=== PATIENT | male | born 1965 | race Caucasian/White ===

== ENCOUNTER → 2016-09-21 | Outpatient (CLI) | payer BC ==
[~2016-09-21] MED LIST: CMD75 PO; LEVO200T6 PO; PRLSR20 PO
[2016-09-21 15:41] LABS: BASO % 1.3 %; BASO ABS # 0.11 K/uL (0-0.2); COMPLETE YES; EOS % 5.4 %; HEMATOCRIT 42.7 % (42-52); IG% 0.2 %; LYMPH % 32.6 %; LYMPH ABS # 2.72 K/uL (1.2-3.4); MEAN CELL VOLUME 90.3 fL (80-100); MEAN CORPUSCULAR HEMOGLOBIN 31.3 pg (25-34); MEAN CORPUSCULAR HGB CONC 34.7 g/dl (32-36); MEAN PLATELET VOLUME 10.2 fL (7.4-10.4); MONO % 8.5 %; PLATELET COUNT 241 K/uL (130-400); RED BLOOD COUNT 4.73 M/uL (4.7-6.1); WHITE BLOOD COUNT 8.34 K/uL (4.8-10.8)
[2016-09-21 15:51] LABS: INR 1.5 (0.9-1.1); PROTHROMBIN TIME (PATIENT) 16.3 SECONDS (9.0-12.0)
[2016-09-21 15:52] LABS: ALT/SGPT 50 U/L (12-78); AST/SGOT 23 U/L (15-37); BLOOD UREA NITROGEN 11 mg/dl (7-18); BUN/CREATININE RATIO 9.3 (10-20); CALCIUM 8.8 mg/dl (8.5-10.1); CARBON DIOXIDE 29 mmol/L (21-32); CHLORIDE 106 mmol/L (98-107); GLUCOSE 97 mg/dl (70-99); POTASSIUM 4.2 mmol/L (3.5-5.1); SODIUM 141 mmol/L (136-145)
[2016-09-21 16:03] LABS: ALB/GLOB RATIO 1.1 (0.9-2); ALKALINE PHOSPHATASE 86 U/L (45-117)
== END | disposition home or self-care (01) ==
LOC: C.LAB1850 14:17
PROVIDERS: ATTEND Internal Medicine Pulmonary Disease
DX: Z00.00 Encounter for general adult medical examination without abnormal findings (principal); D68.51 Activated protein C resistance; E03.9 Hypothyroidism, unspecified; E78.5 Hyperlipidemia, unspecified; K21.9 Gastro-esophageal reflux disease without esophagitis; M51.36 Other intervertebral disc degeneration, lumbar region; Z23 Encounter for immunization

== ENCOUNTER → 2017-04-05 | Outpatient (CLI) | payer BC ==
[2017-04-05 09:36] LABS: INR 1.4 (0.9-1.1); PROTHROMBIN TIME (PATIENT) 14.9 SECONDS (9.0-12.0)
== END | disposition home or self-care (01) ==
LOC: C.LAB1850 07:06
PROVIDERS: ATTEND Internal Medicine Pulmonary Disease
DX: D68.51 Activated protein C resistance (principal); E03.9 Hypothyroidism, unspecified; M54.30 Sciatica, unspecified side; E78.5 Hyperlipidemia, unspecified; M51.36 Other intervertebral disc degeneration, lumbar region; K21.9 Gastro-esophageal reflux disease without esophagitis

== ENCOUNTER → 2017-09-09 | Outpatient (CLI) | payer BC ==
[2017-09-09 09:33] LABS: BASO % 1.5 %; BASO ABS # 0.12 K/uL (0-0.2); EOS ABS # 0.41 K/uL (0-0.5); HEMATOCRIT 44.4 % (42-52); HEMOGLOBIN 15.2 g/dL (14.0-18.0); IG# 0.02 K/uL (0.00-0.02); LYMPH % 27.7 %; LYMPH ABS # 2.28 K/uL (1.2-3.4); MEAN CELL VOLUME 91.2 fL (80-100); MEAN CORPUSCULAR HEMOGLOBIN 31.2 pg (25-34); MEAN CORPUSCULAR HGB CONC 34.2 g/dl (32-36); MEAN PLATELET VOLUME 10.3 fL (7.4-10.4); MONO % 7.3 %; NEUT % 58.3 %; PLATELET COUNT 259 K/uL (130-400); RED CELL DISTRIBUTION WIDTH CV 14.1 % (11.5-14.5); RED CELL DISTRIBUTION WIDTH SD 46.7 fL (36.4-46.3); WHITE BLOOD COUNT 8.23 K/uL (4.8-10.8)
[2017-09-09 09:41] LABS: INR 1.7 (0.9-1.1)
[2017-09-09 09:46] LABS: ALBUMIN 3.6 gm/dl (3.4-5.0); ALT/SGPT 39 U/L (12-78); AST/SGOT 22 U/L (15-37); BLOOD UREA NITROGEN 11 mg/dl (7-18); CALCIUM 8.7 mg/dl (8.5-10.1); CARBON DIOXIDE 26 mmol/L (21-32); CHOLESTEROL 196 mg/dl (0-200); CREATININE 1.13 mg/dl (0.60-1.40); GLUCOSE 164 mg/dl (70-99); POTASSIUM 3.8 mmol/L (3.5-5.1); SODIUM 137 mmol/L (136-145)
[2017-09-09 09:58] LABS: ALKALINE PHOSPHATASE 75 U/L (45-117); LDL CHOLESTEROL CALCULATED 128 mg/dl; TOTAL PROTEIN 7.2 gm/dl (6.4-8.2)
== END | disposition home or self-care (01) ==
LOC: C.LAB1850 07:01
PROVIDERS: ATTEND Internal Medicine Pulmonary Disease
DX: D68.51 Activated protein C resistance (principal); E03.9 Hypothyroidism, unspecified; E78.5 Hyperlipidemia, unspecified; M51.36 Other intervertebral disc degeneration, lumbar region; K21.9 Gastro-esophageal reflux disease without esophagitis; I10 Essential (primary) hypertension

== ENCOUNTER 2018-11-06 22:20 | Inpatient (IN) ==
[2018-11-06] MEDS ORDERED: ONDANSETRON INJ 2 MG/ML 2 ML VIAL IV STA (23:27)
[2018-11-06] MEDS ORDERED: HYDROmorphone INJ 1 MG/ML SYRINGE IV STA (23:27)
[2018-11-06] MEDS ORDERED: ONDANSETRON INJ 2 MG/ML 2 ML VIAL ONE (23:28)
[2018-11-06] MEDS ORDERED: HYDROmorphone INJ 1 MG/ML SYRINGE ONE (23:28)
[2018-11-06] MEDS ORDERED: SODIUM CHLORIDE 0.9% 1000ML 1,000 ML IV SCH (23:30)
[2018-11-06 23:39] LABS: Basophils % (auto) 0.5 %; Eosinophils # (auto) 0.22 K/uL (0-0.5); Eosinophils % (auto) 1.1 %; Hematocrit (blood only) 47.7 % (42-52); Hemoglobin 17.7 g/dL (14.0-18.0); Immature Granulocytes # (auto) 0.07 K/uL (0.00-0.02); Immature Granulocytes % (auto) 0.4 %; Lymphocytes # (auto) 2.44 K/uL (1.2-3.4); Lymphocytes % (auto) 12.5 %; Mean Corpuscular Hgb Conc 37.1 g/dL (32-36); Mean Corpuscular Volume 87.5 fL (80-100); Mean Platelet Volume 10.3 fL (7.4-10.4); Monocytes # (auto) 1.67 K/uL (0.11-0.59); Monocytes % (auto) 8.6 %; Neutrophils # (auto) 14.98 K/uL (1.4-6.5); Neutrophils % (auto) 76.9 %; Platelet Count 315 K/uL (130-400); RDW Coefficient of Variation 13.9 % (11.5-14.5); RDW Standard Deviation 44.5 fL (36.4-46.3); Red Blood Count 5.45 M/uL (4.7-6.1); White Blood Count 19.48 K/uL (4.8-10.8)
[2018-11-06 23:49] LABS: INR 2.3 (0.9-1.1); Partial Thromboplastin Ratio 1.3; Partial Thromboplastin Time 35.7 Seconds (21.0-31.0); Prothrombin Time 22.2 Seconds (9.0-12.0)
[2018-11-07] MEDS ORDERED: MoRPHine SULFATE 4 MG/ML 1 ML CARP\\VIAL IV STA (00:37)
[2018-11-07 00:49] LABS: Appearance Urine Clear (Clear); Bilirubin Urine Negative (Negative); Blood Urine Negative (Negative); Color Urine Yellow; Glucose Urine UA Negative (Negative); Ketones Urine Negative (Negative); Leukocyte Esterase Urine Negative (Negative); Nitrite Urine Negative (Negative); Protein Urine Negative (Negative); Urobilinogen Urine Negative (Negative); pH Urine 6.5 (4.5-7.5)
[2018-11-07 00:56] LABS: Basophils # (auto) 0.05 K/uL (0-0.2); Basophils % (auto) 0.3 %; Eosinophils # (auto) 0.08 K/uL (0-0.5); Eosinophils % (auto) 0.5 %; Hematocrit (blood only) 44.6 % (42-52); Hemoglobin 15.7 g/dL (14.0-18.0); Immature Granulocytes # (auto) 0.05 K/uL (0.00-0.02); Immature Granulocytes % (auto) 0.3 %; Lymphocytes % (auto) 9.5 %; Mean Corpuscular Hgb Conc 35.2 g/dL (32-36); Mean Platelet Volume 10.1 fL (7.4-10.4); Monocytes # (auto) 1.05 K/uL (0.11-0.59); Monocytes % (auto) 6.7 %; Neutrophils # (auto) 13.01 K/uL (1.4-6.5); Neutrophils % (auto) 82.7 %; Platelet Count 235 K/uL (130-400); RDW Coefficient of Variation 13.8 % (11.5-14.5); RDW Standard Deviation 44.8 fL (36.4-46.3); Red Blood Count 5.01 M/uL (4.7-6.1); White Blood Count 15.74 K/uL (4.8-10.8)
[2018-11-07 01:12] LABS: Alanine Aminotransferase 33 U/L (12-78); Albumin Level 3.4 gm/dl (3.4-5.0); Amylase 84 U/L (25-115); Aspartate Aminotransferase 15 U/L (15-37); BUN Creatinine Ratio 9.6 (10-20); Blood Urea Nitrogen 11 mg/dl (7-18); Calcium 8.5 mg/dl (8.5-10.1); Carbon Dioxide 29 mmol/L (21-32); Chloride 101 mmol/L (98-107); Creatinine Clr Calc Pharmacy 104.4 ml/min; Est GFR (African American) 89.6; Est GFR (Non-African American) 77.3; Glucose 137 mg/dl (70-99); INR 2.5 (0.9-1.1); Partial Thromboplastin Ratio 1.4; Partial Thromboplastin Time 37.5 Seconds (21.0-31.0); Potassium 3.6 mmol/L (3.5-5.1); Prothrombin Time 23.8 Seconds (9.0-12.0); Sodium 136 mmol/L (136-145)
[2018-11-07 01:17] LABS: Albumin Globulin Ratio 0.9 (0.9-2); Alkaline Phosphatase 74 U/L (45-117); Bilirubin,Total 0.5 mg/dl (0.2-1); Globulin 3.8 gm/dl (2.5-4.0); Total Protein 7.2 gm/dl (6.4-8.2); Troponin I < 0.015 ng/ml (0-0.045)
[2018-11-07] MEDS ORDERED: IOVERSOL 100ml IV PRN (01:31)
[2018-11-07] MEDS ORDERED: FAMOTIDINE 20MG IV PUSH 20 MG/5 ML SYR IV STA (01:47)
[2018-11-07] MEDS: HYDROmorphone INJ 0.5 MG/0.5 ML SYR IV PRN ×8 (02:24→12:14)
--- NOTE | 2018-11-07 04:01 | Emergency Department Note ---
History of Present Illness General Chief complaint: Abdominal Pain Stated complaint: SEVERE MID/UPPER ABDOMINAL PAIN Time Seen by Provider: 11/06/18 23:21 History of Present Illness Maximum Pain Intensity: 10 This is a 53-year-old male presenting to the emergency department for evaluation of severe upper abdominal pain for the past 16 hours. The patient states that his pain began abruptly around 4 AM today, causing him severe pain, nausea, and vomiting. His pain is primarily in a band in the upper abdomen does not otherwise radiate. The patient has not had anything to eat or drink today because of the severity of his symptoms. He did try to drink a small amount this afternoon, but had return of his pain. The patient had several hours of decreased pain, however in the past 1 hour his pain has returned and is currently rated a 10/10. The patient has not had fever or chills. He does not have significant chest pain, chest tightness, or shortness of breath. No lower abdominal discomfort. His past medical history is significant for pulmonary emboli in the past, for which he does take Coumadin. He is not taking anything by mouth for his current pain. He denies alcohol use or tobacco use. Home Medications Home Medications Medication Instructions Recorded Confirmed Type indapamide 1.25 mg PO QAM 11/07/18 11/07/18 History levothyroxine 200 mcg PO DAILY 11/07/18 11/07/18 History omeprazole 20 mg PO DAILY 11/07/18 11/07/18 History warfarin 7.5 mg PO DAILY 11/07/18 11/07/18 History Allergies Allergy/AdvReac Type Severity Reaction Status Date / Time No Known Allergies Allergy Unknown Verified 11/07/18 01:11 Past Med/Surg History Medical History Hypothyroidism History of pulmonary embolism Pancreatitis (Acute 07/28/13) Social History Preferred Language: Albanian Feels Safe at Home: Yes Smoking Status: Never smoker Review of Systems A total of 10 systems reviewed and were otherwise negative Physical Exam Vital Signs Vital Signs - 24 hr 11/06/18 22:31 11/06/18 23:18 11/06/18 23:34 Temperature 36.9 C Temperature Source Oral Sepsis Recent Fever Within 48 Hours No Sepsis New/Unexplained Change in Mental Status No Sepsis Action Taken by Nursing No Action Required Pulse Rate 88 Pulse Rate [Right Finger] 88 Pulse Rhythm [Right Finger] Regular Pulse Strength [Right Finger] Normal Respiratory Rate 22 20 Respiratory Effort / Characteristics Non-Labored Spontaneous Respiratory Depth Normal Blood Pressure 162/99 H Blood Pressure [Right Arm] 154/98 H Blood Pressure Mean 120 Blood Pressure Mean [Right Arm] 116 Pulse Oximetry 99 100 93 Oxygen Delivery Method Room Air Room Air 11/07/18 00:39 11/07/18 02:24 11/07/18 03:33 Temperature Temperature Source Sepsis Recent Fever Within 48 Hours Sepsis New/Unexplained Change in Mental Status Sepsis Action Taken by Nursing Pulse Rate Pulse Rate [Right Finger] 67 71 65 Pulse Rhythm [Right Finger] Regular Pulse Strength [Right Finger] Normal Respiratory Rate 20 20 16 Respiratory Effort / Characteristics Non-Labored Spontaneous Non-Labored Spontaneous Non-Labored Spontaneous Respiratory Depth Normal Normal Normal Blood Pressure Blood Pressure [Right Arm] 146/89 H 146/97 H 166/93 H Blood Pressure Mean Blood Pressure Mean [Right Arm] 108 113 117 Pulse Oximetry 96 95 98 Oxygen Delivery Method Room Air Room Air Room Air VITALS: Vitals are noted on the nurse's note and reviewed by myself. Vital signs stable. GENERAL: White male who appears in moderate to severe discomfort upon my arrival to the ER room. He is holding his upper abdomen with both of his hands and rocking back and forth in the ER bed. HEAD: Normocephalic atraumatic. EYES: Pupils equal round and reactive to light and accommodation. Conjunctivae without injection, sclerae without icterus. Extraocular movements intact. NECK: Supple without nuchal rigidity. No lymphadenopathy. No thyromegaly. Cervical spine is nontender. HEART: Regular rate and rhythm without murmurs gallops or rubs. LUNGS: Clear to auscultation bilaterally without wheezes, rales or rhonchi. No retractions or accessory muscle use. ABDOMEN: Positive normal bowel sounds x 4. Soft with exquisite epigastric and right upper quadrant tenderness. There is some mild left upper quadrant ten derness. No lower abdominal tenderness appreciated. No CVA tenderness. MUSCULOSKELETAL: No muscle atrophy, erythema, or edema noted. Full range of motion in all extremities. NEURO: Patient was alert and oriented to person place and time. CN II through XII grossly intact. . SKIN: The skin was without rashes, erythema, edema, or bruising. Capillary refill less than 2 seconds. Course Administered Medications Hydromorphone HCl (Dilaudid) 0.5 mg IV Q15M PRN PRN Reason: Pain Stop: 11/21/18 02:15 Last Admin: 11/07/18 03:31 Dose: 0.5 mg Documented by: [id number] Admin: 11/07/18 02:24 Dose: 0.5 mg Documented by: [id number] Ioversol (Optiray 320 100ml) 100 ml IV ONCE PRN PRN Reason: Interaction Checking Stop: 11/11/18 01:30 Last Admin: 11/07/18 01:31 Dose: 93 ml Documented by: [id number] Discontinued Medications Hydromorphone HCl (Dilaudid) Confirm Administered Dose 1 mg .ROUTE .STK-MED ONE Stop: 11/06/18 23:29 Last Admin: 11/06/18 23:35 Dose: Not Given Documented by: [id number] Hydromorphone HCl (Dilaudid) 1 mg IV NOW STA Stop: 11/06/18 23:28 Last Admin: 11/06/18 23:35 Dose: 1 mg Documented by: [id number] Sodium Chloride (Nss 1000ml) 1,000 mls @ 999 mls/hr IV .Q1H1M ASHLEY Stop: 11/07/18 00:30 Last Infusion: 11/07/18 00:38 Dose: 0 mls/hr Documented by: [id number] Admin: 11/06/18 23:35 Dose: 999 mls/hr Documented by: [id number] Famotidine (Pepcid 20mg Iv Push) 20 mg in 5 mls @ 2.5 mls/min IV NOW STA Stop: 11/07/18 01:48 Last Admin: 11/07/18 01:59 Dose: 2.5 mls/min Documented by: [id number] Morphine Sulfate (Morphine Sulfate) 4 mg IV NOW STA Stop: 11/07/18 00:38 Last Admin: 11/07/18 00:43 Dose: 4 mg Documented by: [id number] Ondansetron HCl (Zofran) Confirm Administered Dose 4 mg .ROUTE .STK-MED ONE Stop: 11/06/18 23:29 Last Admin: 11/06/18 23:35 Dose: Not Given Documented by: [id number] Ondansetron HCl (Zofran) 4 mg IV NOW STA Stop: 11/06/18 23:28 Last Admin: 11/06/18 23:35 Dose: 4 mg Documented by: [id number] Medical Decision Making Differential Diagnosis Differential diagnosis: Etiologies such as biliary colic, cholecystitis, hepatitis, pancreatitis, cardiac disease, pancreatitis, gastritis, peptic ulcer disease, appendicitis, cystitis, diverticulitis, mesenteric ischemia, inflammatory bowel disease, ileus, bowel obstruction, testicular/adnexal torsion, aortic pathology, shingles, as well as others were considered Laboratory Data Result diagrams: 11/07/18 00:42 11/07/18 00:42 Lab Results 11/06/18 11/06/18 11/06/18 Range/Units 22:48 22:48 22:48 WBC 19.48 H (4.8-10.8) K/uL RBC 5.45 (4.7-6.1) M/uL Hgb 17.7 (14.0-18.0) g/dL Hct 47.7 (42-52) % MCV 87.5 (80-100) fL MCH 32.5 (25-34) pg MCHC 37.1 H (32-36) g/dL RDW Std Deviation 44.5 (36.4-46.3) fL RDW Coeff of Adrian 13.9 (11.5-14.5) % Plt Count 315 (130-400) K/uL MPV 10.3 (7.4-10.4) fL Immature Gran % (Auto) 0.4 % Neut % (Auto) 76.9 % Lymph % (Auto) 12.5 % [place] % (Auto) 8.6 % Eos % (Auto) 1.1 % Baso % (Auto) 0.5 % Immature Gran # (Auto) 0.07 H (0.00-0.02) K/uL Neut # (Auto) 14.98 H (1.4-6.5) K/uL Lymph # (Auto) 2.44 (1.2-3.4) K/uL [place] # (Auto) 1.67 H (0.11-0.59) K/uL Eos # (Auto) 0.22 (0-0.5) K/uL Baso # (Auto) 0.10 (0-0.2) K/uL PT 22.2 H (9.0-12.0) Seconds INR 2.3 H (0.9-1.1) APTT 35.7 H (21.0-31.0) Seconds PTT Ratio 1.3 Sodium Cancelled Potassium Cancelled Chloride Cancelled Carbon Dioxide Cancelled Anion Gap Cancelled BUN Cancelled Creatinine Cancelled Est Cr Clr Drug Dosing Cancelled Est GFR ( Amer) Cancelled Est GFR (Non-Af Amer) Cancelled BUN/Creatinine Ratio Cancelled Glucose Cancelled Calcium Cancelled Total Bilirubin Cancelled AST Cancelled ALT Cancelled Alkaline Phosphatase Cancelled Troponin I Cancelled Total Protein Cancelled Albumin Cancelled Globulin Cancelled Albumin/Globulin Ratio Cancelled Amylase Cancelled Lipase Cancelled Urine Color Urine Appearance (Clear) Urine pH (4.5-7.5) Ur Specific [place] (1.000-1.030) Urine Protein (Negative) Urine Glucose (UA) (Negative) Urine Ketones (Negative) Urine Blood (Negative) Urine Nitrite (Negative) Urine Bilirubin (Negative) Urine Urobilinogen (Negative) Ur Leukocyte Esterase (Negative) 11/07/18 11/07/18 11/07/18 Range/Units 00:35 00:42 00:42 WBC 15.74 H (4.8-10.8) K/uL RBC 5.01 (4.7-6.1) M/uL Hgb 15.7 (14.0-18.0) g/dL Hct 44.6 (42-52) % MCV 89.0 (80-100) fL MCH 31.3 (25-34) pg MCHC 35.2 (32-36) g/dL RDW Std Deviation 44.8 (36.4-46.3) fL RDW Coeff of Adrian 13.8 (11.5-14.5) % Plt Count 235 (130-400) K/uL MPV 10.1 (7.4-10.4) fL Immature Gran % (Auto) 0.3 % Neut % (Auto) 82.7 % Lymph % (Auto) 9.5 % [place] % (Auto) 6.7 % Eos % (Auto) 0.5 % Baso % (Auto) 0.3 % Immature Gran # (Auto) 0.05 H (0.00-0.02) K/uL Neut # (Auto) 13.01 H (1.4-6.5) K/uL Lymph # (Auto) 1.50 (1.2-3.4) K/uL [place] # (Auto) 1.05 H (0.11-0.59) K/uL Eos # (Auto) 0.08 (0-0.5) K/uL Baso # (Auto) 0.05 (0-0.2) K/uL PT 23.8 H (9.0-12.0) Seconds INR 2.5 H (0.9-1.1) APTT 37.5 H (21.0-31.0) Seconds PTT Ratio 1.4 Sodium Potassium Chloride Carbon Dioxide Anion Gap BUN Creatinine Est Cr Clr Drug Dosing Est GFR ( Amer) Est GFR (Non-Af Amer) BUN/Creatinine Ratio Glucose Calcium Total Bilirubin AST ALT Alkaline Phosphatase Troponin I Total Protein Albumin Globulin Albumin/Globulin Ratio Amylase Lipase Urine Color Yellow Urine Appearance Clear (Clear) Urine pH 6.5 (4.5-7.5) Ur Specific [place] 1.010 (1.000-1.030) Urine Protein Negative (Negative) Urine Glucose (UA) Negative (Negative) Urine Ketones Negative (Negative) Urine Blood Negative (Negative) Urine Nitrite Negative (Negative) Urine Bilirubin Negative (Negative) Urine Urobilinogen Negative (Negative) Ur Leukocyte Esterase Negative (Negative) 11/07/18 Range/Units 00:42 WBC (4.8-10.8) K/uL RBC (4.7-6.1) M/uL Hgb (14.0-18.0) g/dL Hct (42-52) % MCV (80-100) fL MCH (25-34) pg MCHC (32-36) g/dL RDW Std Deviation (36.4-46.3) fL RDW Coeff of Adrian (11.5-14.5) % Plt Count (130-400) K/uL MPV (7.4-10.4) fL Immature Gran % (Auto) % Neut % (Auto) % Lymph % (Auto) % [place] % (Auto) % Eos % (Auto) % Baso % (Auto) % Immature Gran # (Auto) (0.00-0.02) K/uL Neut # (Auto) (1.4-6.5) K/uL Lymph # (Auto) (1.2-3.4) K/uL [place] # (Auto) (0.11-0.59) K/uL Eos # (Auto) (0-0.5) K/uL Baso # (Auto) (0-0.2) K/uL PT (9.0-12.0) Seconds INR (0.9-1.1) APTT (21.0-31.0) Seconds PTT Ratio Sodium 136 Potassium 3.6 Chloride 101 Carbon Dioxide 29 Anion Gap 6.0 BUN 11 Creatinine 1.10 Est Cr Clr Drug Dosing 104.4 Est GFR ( Amer) 89.6 Est GFR (Non-Af Amer) 77.3 BUN/Creatinine Ratio 9.6 L Glucose 137 H Calcium 8.5 Total Bilirubin 0.5 AST 15 ALT 33 Alkaline Phosphatase 74 Troponin I < 0.015 Total Protein 7.2 Albumin 3.4 Globulin 3.8 Albumin/Globulin Ratio 0.9 Amylase 84 Lipase 513 H Urine Color Urine Appearance (Clear) Urine pH (4.5-7.5) Ur Specific [place] (1.000-1.030) Urine Protein (Negative) Urine Glucose (UA) (Negative) Urine Ketones (Negative) Urine Blood (Negative) Urine Nitrite (Negative) Urine Bilirubin (Negative) Urine Urobilinogen (Negative) Ur Leukocyte Esterase (Negative) Imaging Data Radiologist's Impression: Preliminary Findings Only See Final Report For Complete Findings US RUQ: No gallstones or biliary ductal dilatation. Gallbladder sludge. Positive sonographic Liu sign is reported The pancreas is obscured. Echogenic liver suggesting fatty infiltration or hepatocellular disease. Hepatomegaly, 19 centimeters Preliminary Findings Only See Final Report For Complete Findings CT ABDOMEN & PELVIS With Contrast: Stranding about the pancreatic head-uncinate area and duodenum. Could be pancreatitis. Additional considerations include duodenitis or peptic ulcer disease. No radiodense gallstones. Mild fatty liver. Colonic diverticula without diverticulitis. Unremarkable appendix. Degenerative changes in the spine and spinal stenosis. MDM Narrative Physical exam and history were performed. Nursing notes, EMR, and Medication List were personally reviewed. Patient appears to have significant discomfort in the upper abdomen throughout the course of today that is worse the past 1 hour. IV access was established and labs were obtained. The patient was given 1 mg IV Dilaudid as well as 4 mg IV Zofran for comfort. He was placed n.p.o. and hydrated with normal saline. Ultrasound was ordered of the right upper quadrant. The patient's blood work is as above and was reviewed. He did have 2 sets of blood work as the initial blood work did hemolyzed, and labs were reordered. We were able to get an initial white blood cell count of 19.48. He does not have a significant anemia or significant electrolyte imbalance. His INR is 2.5. Lipase is minimally elevated at 513. Amylase is normal. The patient's ultrasound was reviewed and does not appear to show an acute biliary etiology of his symptoms. On reevaluation the patient continues with significant discomfort, although this has improved. He was given a small dose of IV morphine and taken to CT scan. CT scan seems to suggest a pancreatitis, which would certainly correlate with his discomfort. Overall the patient does not appear well for discharge home. The case was discussed with the on-call hospitalist, Dr. Bro, who agreed to evaluate the patient here in the department. Please see Dr. Bro's dictation for further patient course, plan, disposition. The chart was completed utilizing [employer] Speech Voice Recognition Software. Grammatical errors, random word insertions, pronoun errors, and incomplete sentences are an occasional consequence of this system due to software limitations, ambient noise, and hardware issues. Any formal questions or concerns about the content, text, or information contained within the body of this dictation should be directly addressed to the provider for clarification. . Impression & Plan Acute pancreatitis Discharge Plan Visit Data Chief Complaint: Abdominal Pain Stated Complaint: SEVERE MID/UPPER ABDOMINAL PAIN ED Provider: Deidra Lyons ED Midlevel Provider: Eduar Montero Discharge Problem: Acute pancreatitis Forms Stand Alone Forms: Call Back Authorization, [facility] Prescriptions Prescriptions: No Action warfarin 7.5 mg Tablet 7.5 mg PO DAILY RF: 0 levothyroxine 200 mcg Tablet 200 mcg PO DAILY RF: 0 omeprazole 20 mg Tablet,Delayed Release (Dr/Ec) 20 mg PO DAILY RF: 0 indapamide 1.25 mg Tablet 1.25 mg PO QAM RF: 0 Referrals Referrals: Brad Barr MD [Primary Care Provider] -
--- NOTE | 2018-11-07 04:17 | History & Physical Report ---
Date of Service November 07, 2018 Assessment & Plan (1) Right upper quadrant abdominal pain: 53-year-old male was admitted on 07 Nov 2018 for progressively worsening right upper quadrant pain. Pancreatitis, right upper quadrant pain: Symptoms progressively worsening over past 24 hours prior to admit. Prior history of pancreatitis back in July 2013, though the patient says it was ultimately diagnosed as gastritis. Current symptoms feel more severe. Denies EtOH use. Quite tender in the RUQ. - On arrival, afebrile, no tachycardia, mild hypertension, normal room SpO2. WBC 19, electrolytes and LFTs okay. Troponin negative. Lipase 513. UA negative. Gallbladder ultrasound (overnight read) notes no gallstones or biliary duct dilatation, positive gallbladder sludge, positive sonographic Liu's, hepatomegaly, and echogenic liver suggesting fatty infiltration/hepatocellular disease. CT a/p with contrast (overnight read) noted stranding in the pancreatic head and duodenum suggestive of either pancreatitis, duodenitis or PUD, or mild fatty liver. - In the ED was treated with NS IVF, Zofran, Pepcid, morphine, and Dilaudid. - Check alcohol and lipid panel. Begin aggressive fluid replacement with LR at 250 mL/hr. Dilaudid prn for pain, Phenergan prn for nausea. Recheck lipase and electrolytes in late AM. Consult GI. Prolonged QTc: EKG was NSR, rate 87, with QTc of 478. Will avoid Zofran for now. Ongoing medical issues: - Hypertension, hyperlipidemia: Will hold his home indapamide while on IVF replacement. - Factor V Leiden deficiency, history of left lower extremity DVT, PE: On home Coumadin. Admit INR 2.5. - Hypothyroidism: Continue home Synthroid. - GERD: Continue home omeprazole. - Type 2 diabetes: Sep 2018 HbA1c was 6.9. Patient is pursuing lifestyle changes before starting medication. - Degenerative spine changes, spinal stenosis: Also noted on overnight CT a/p read. He does have history of lumbar disc degeneration and previous herniated disc repair. Code status: Full code. Diet: NPO except meds. DVT prophy: Coumadin as above. PT/OT: Deferred. Disbo: Admit to [facility]. (2) Acute pancreatitis: (3) Prolonged QT interval: (4) Hypertension: (5) Hyperlipidemia: (6) Factor V Leiden mutation: (7) Hypothyroidism: (8) History of pulmonary embolism: (9) History of DVT (deep vein thrombosis): (10) GERD (gastroesophageal reflux disease): (11) Diabetes mellitus: (12) Lumbar canal stenosis: (13) Lumbar arthropathy: History of Present Illness Primary Care Provider: Brad Barr MD 53-year-old male presents the emergency department with progressively worsening right upper quadrant pain that radiates to his back. - He says he woke up on 16October around 4 am with a feeling of "gas" discomfort in his abdomen. It never remitted throughout the day but was initially more manageable. Says around 5 PM became a lot worse so he took some Pepto-Bismol with no relief. He says by late this evening the pain became quite severe as a steady, burning pain in his RUQ radiating to his back. Positive nausea, denies any vomiting or diarrhea. Says last bowel movement was about 36 hours ago. Says this is the most severe abdominal pain he has ever had. Minimal p.o. intake yesterday due to feeling of bloating. Says his mouth is currently quite dry. Denies any recent fevers, illness, trauma, or other acute concerns. - He does note a previous episode of similar location and pain character (but not severity) to this many years ago. He says he was told it may be pancreatitis but ultimately it was diagnosed as gastritis. --- Past medical history includes hypertension, hyperlipidemia, hypothyroidism, prior rib fractures, lumbar disc degeneration, GERD, type 2 diabetes, factor V Leiden mutation, DVT and PE, obesity, bilateral varicose veins, pancreatitis. --- Past surgical history includes right shoulder arthroscopy and rotator cuff repair, herniated disc repair, nasal septal repair, tonsillectomy and adeno idectomy --- Social history includes denying tobacco or any alcohol use at all. 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 Allergies Allergy/AdvReac Type Severity Reaction Status Date / Time No Known Allergies Allergy Unknown Verified 11/07/18 01:11 Home Medications Home Medications Medication Instructions Recorded Confirmed Type indapamide 1.25 mg PO QAM 11/07/18 11/07/18 History levothyroxine 200 mcg PO DAILY 11/07/18 11/07/18 History omeprazole 20 mg PO DAILY 11/07/18 11/07/18 History warfarin 7.5 mg PO DAILY 11/07/18 11/07/18 History Past Med/Surg History Medical History Hypothyroidism History of pulmonary embolism Pancreatitis (Acute 07/28/13) Factor V Leiden Surgical History History of repair of right rotator cuff History of umbilical hernia repair Previous back surgery Social History Preferred Language: Wolof Communication Ability: Effective 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 Beliefs That Will Affect Care: None Current Living Situation: Family Other Information That Helps Us Care for You: No Feels Safe at Home: Yes Safety Concerns: Feels Safe At This Time Smoking Status: Light tobacco smoker Tobacco Type: cigars Cigarettes Per Day: once a year Do You Dip or Chew Tobacco: No Second Hand Exposure: No Tobacco Cessation Education Requested by Patient: No Hx Alcohol Use: No Hx Substance Use: No Review of Systems Review of Systems: Constitutional: Denies fevers, chills, focal weakness Eyes: Denies any visual loss or diplopia ENT: Denies any ear/nose/throat pain or difficulty speaking or swallowing Respiratory: Denies any dyspnea, cough, hemoptysis Cardiovascular: Denies any chest pain or feeling of edema Gastrointestinal: Positive abdominal pain and nausea. Denies vomiting or diarrhea. Musculoskeletal: Denies any acute extremity pains, myalgias, or focal weakness Skin: Denies any known acute rashes or lesions Neuro: Denies any headache, acute focal weakness or numbness, or difficulties with speech or swallow. Physical Exam Physical Exam: GENERAL: Awake, alert, overall well-appearing but is in mild to moderate abdominal pain at present. Does not appear in immediate distress. HENT: Normocephalic, atraumatic. Oropharynx quite dry. EYES: Normal conjunctiva. Sclera non-icteric. NECK: Inspection normal. Supple and full ROM. No nuchal rigidity. CARDIAC: +S1S2 RRR, no murmurs. RESPIRATORY: Clear to auscultation. No wheezes or rales. Normal respiratory effort. GI: +BS, soft, non-distended. Very tender to palpation in the right upper qu adrant, non-tender elsewhere in the abdomen. Non-peritoneal. Does not appear distended. EXTREMITIES: No pedal edema or calf tenderness. Moving all extremities naturally and easily. NEURO: No gross neuro deficits. Results & Data Vital Signs (Past 12 Hours) Vital Signs Temp Pulse Pulse Resp BP BP Pulse Ox 11/07/18 03:33 65 16 166/93 H 98 11/07/18 02:24 71 20 146/97 H 95 11/07/18 00:39 67 20 146/89 H 96 11/06/18 23:34 93 11/06/18 23:18 88 20 154/98 H 100 11/06/18 22:31 36.9 C 88 22 162/99 H 99 Laboratory Results 11/07/18 11/07/18 11/07/18 Range/Units 00:42 00:42 00:42 WBC 15.74 H (4.8-10.8) K/uL RBC 5.01 (4.7-6.1) M/uL Hgb 15.7 (14.0-18.0) g/dL Hct 44.6 (42-52) % MCV 89.0 (80-100) fL MCH 31.3 (25-34) pg MCHC 35.2 (32-36) g/dL RDW Std Deviation 44.8 (36.4-46.3) fL RDW Coeff of Adrian 13.8 (11.5-14.5) % Plt Count 235 (130-400) K/uL MPV 10.1 (7.4-10.4) fL Immature Gran % (Auto) 0.3 % Neut % (Auto) 82.7 % Lymph % (Auto) 9.5 % Cass % (Auto) 6.7 % Eos % (Auto) 0.5 % Baso % (Auto) 0.3 % Immature Gran # (Auto) 0.05 H (0.00-0.02) K/uL Neut # (Auto) 13.01 H (1.4-6.5) K/uL Lymph # (Auto) 1.50 (1.2-3.4) K/uL Cass # (Auto) 1.05 H (0.11-0.59) K/uL Eos # (Auto) 0.08 (0-0.5) K/uL Baso # (Auto) 0.05 (0-0.2) K/uL PT 23.8 H (9.0-12.0) Seconds INR 2.5 H (0.9-1.1) APTT 37.5 H (21.0-31.0) Seconds PTT Ratio 1.4 Sodium 136 Potassium 3.6 Chloride 101 Carbon Dioxide 29 Anion Gap 6.0 BUN 11 Creatinine 1.10 Est Cr Clr Drug Dosing 104.4 Est GFR ( Amer) 89.6 Est GFR (Non-Af Amer) 77.3 BUN/Creatinine Ratio 9.6 L Glucose 137 H Calcium 8.5 Total Bilirubin 0.5 AST 15 ALT 33 Alkaline Phosphatase 74 Troponin I < 0.015 Total Protein 7.2 Albumin 3.4 Globulin 3.8 Albumin/Globulin Ratio 0.9 Amylase 84 Lipase 513 H Urine Color Urine Appearance (Clear) Urine pH (4.5-7.5) Ur Specific Madison (1.000-1.030) Urine Protein (Negative) Urine Glucose (UA) (Negative) Urine Ketones (Negative) Urine Blood (Negative) Urine Nitrite (Negative) Urine Bilirubin (Negative) Urine Urobilinogen (Negative) Ur Leukocyte Esterase (Negative) 11/07/18 11/06/18 11/06/18 Range/Units 00:35 22:48 22:48 WBC (4.8-10.8) K/uL RBC (4.7-6.1) M/uL Hgb (14.0-18.0) g/dL Hct (42-52) % MCV (80-100) fL MCH (25-34) pg MCHC (32-36) g/dL RDW Std Deviation (36.4-46.3) fL RDW Coeff of Adrian (11.5-14.5) % Plt Count (130-400) K/uL MPV (7.4-10.4) fL Immature Gran % (Auto) % Neut % (Auto) % Lymph % (Auto) % Cass % (Auto) % Eos % (Auto) % Baso % (Auto) % Immature Gran # (Auto) (0.00-0.02) K/uL Neut # (Auto) (1.4-6.5) K/uL Lymph # (Auto) (1.2-3.4) K/uL Cass # (Auto) (0.11-0.59) K/uL Eos # (Auto) (0-0.5) K/uL Baso # (Auto) (0-0.2) K/uL PT 22.2 H (9.0-12.0) Seconds INR 2.3 H (0.9-1.1) APTT 35.7 H (21.0-31.0) Seconds PTT Ratio 1.3 Sodium Cancelled Potassium Cancelled Chloride Cancelled Carbon Dioxide Cancelled Anion Gap Cancelled BUN Cancelled Creatinine Cancelled Est Cr Clr Drug Dosing Cancelled Est GFR ( Amer) Cancelled Est GFR (Non-Af Amer) Cancelled BUN/Creatinine Ratio Cancelled Glucose Cancelled Calcium Cancelled Total Bilirubin Cancelled AST Cancelled ALT Cancelled Alkaline Phosphatase Cancelled Troponin I Cancelled Total Protein Cancelled Albumin Cancelled Globulin Cancelled Albumin/Globulin Ratio Cancelled Amylase Cancelled Lipase Cancelled Urine Color Yellow Urine Appearance Clear (Clear) Urine pH 6.5 (4.5-7.5) Ur Specific [place] 1.010 (1.000-1.030) Urine Protein Negative (Negative) Urine Glucose (UA) Negative (Negative) Urine Ketones Negative (Negative) Urine Blood Negative (Negative) Urine Nitrite Negative (Negative) Urine Bilirubin Negative (Negative) Urine Urobilinogen Negative (Negative) Ur Leukocyte Esterase Negative (Negative) 11/06/18 Range/Units 22:48 WBC 19.48 H (4.8-10.8) K/uL RBC 5.45 (4.7-6.1) M/uL Hgb 17.7 (14.0-18.0) g/dL Hct 47.7 (42-52) % MCV 87.5 (80-100) fL MCH 32.5 (25-34) pg MCHC 37.1 H (32-36) g/dL RDW Std Deviation 44.5 (36.4-46.3) fL RDW Coeff of Adrian 13.9 (11.5-14.5) % Plt Count 315 (130-400) K/uL MPV 10.3 (7.4-10.4) fL Immature Gran % (Auto) 0.4 % Neut % (Auto) 76.9 % Lymph % (Auto) 12.5 % Cass % (Auto) 8.6 % Eos % (Auto) 1.1 % Baso % (Auto) 0.5 % Immature Gran # (Auto) 0.07 H (0.00-0.02) K/uL Neut # (Auto) 14.98 H (1.4-6.5) K/uL Lymph # (Auto) 2.44 (1.2-3.4) K/uL Cass # (Auto) 1.67 H (0.11-0.59) K/uL Eos # (Auto) 0.22 (0-0.5) K/uL Baso # (Auto) 0.10 (0-0.2) K/uL PT (9.0-12.0) Seconds INR (0.9-1.1) APTT (21.0-31.0) Seconds PTT Ratio Sodium Potassium Chloride Carbon Dioxide Anion Gap BUN Creatinine Est Cr Clr Drug Dosing Est GFR ( Amer) Est GFR (Non-Af Amer) BUN/Creatinine Ratio Glucose Calcium Total Bilirubin AST ALT Alkaline Phosphatase Troponin I Total Protein Albumin Globulin Albumin/Globulin Ratio Amylase Lipase Urine Color Urine Appearance (Clear) Urine pH (4.5-7.5) Ur Specific Madison (1.000-1.030) Urine Protein (Negative) Urine Glucose (UA) (Negative) Urine Ketones (Negative) Urine Blood (Negative) Urine Nitrite (Negative) Urine Bilirubin (Negative) Urine Urobilinogen (Negative) Ur Leukocyte Esterase (Negative) Medications Administered Hydromorphone HCl (Dilaudid) 0.5 mg IV Q15M PRN PRN Reason: Pain Stop: 11/21/18 02:15 Last Admin: 11/07/18 03:31 Dose: 0.5 mg Documented by: [id number] Admin: 11/07/18 02:24 Dose: 0.5 mg Documented by: [id number] Ioversol (Optiray 320 100ml) 100 ml IV ONCE PRN PRN Reason: Interaction Checking Stop: 11/11/18 01:30 Last Admin: 11/07/18 01:31 Dose: 93 ml Documented by: [id number] Discontinued Medications Hydromorphone HCl (Dilaudid) Confirm Administered Dose 1 mg .ROUTE .STK-MED ONE Stop: 11/06/18 23:29 Last Admin: 11/06/18 23:35 Dose: Not Given Documented by: [id number] Hydromorphone HCl (Dilaudid) 1 mg IV NOW STA Stop: 11/06/18 23:28 Last Admin: 11/06/18 23:35 Dose: 1 mg Documented by: [id number] Sodium Chloride (Nss 1000ml) 1,000 mls @ 999 mls/hr IV .Q1H1M ASHLEY Stop: 11/07/18 00:30 Last Infusion: 11/07/18 00:38 Dose: 0 mls/hr Documented by: [id number] Admin: 11/06/18 23:35 Dose: 999 mls/hr Documented by: [id number] Famotidine (Pepcid 20mg Iv Push) 20 mg in 5 mls @ 2.5 mls/min IV NOW STA Stop: 11/07/18 01:48 Last Admin: 11/07/18 01:59 Dose: 2.5 mls/min Documented by: [id number] Morphine Sulfate (Morphine Sulfate) 4 mg IV NOW STA Stop: 11/07/18 00:38 Last Admin: 11/07/18 00:43 Dose: 4 mg Documented by: [id number] Ondansetron HCl (Zofran) Confirm Administered Dose 4 mg .ROUTE .STK-MED ONE Stop: 11/06/18 23:29 Last Admin: 11/06/18 23:35 Dose: Not Given Documented by: [id number] Ondansetron HCl (Zofran) 4 mg IV NOW STA Stop: 11/06/18 23:28 Last Admin: 11/06/18 23:35 Dose: 4 mg Documented by: [id number] Code Status & VTE Plan Code Status Full code VTE Prophylaxis Plan VTE Prophylaxis will be ordered: Yes Supervising Physician Co-Signing Physician Notes Attending addendum: I have physically seen this patient, have supervised the medical residents activities, and agree with the H&P unless as otherwise noted. Assessment and Plan: Recurrent pancreatitis- Patient presents with a similar but more intense picture as in 2014. Question whether he has had a chronic low level pancreatitis, with a more acute exacerbation now. Differential includes duodenitis, biliary reflux, peptic ulcer disease, sphincter of Oddi spasm among others. Check alcohol level and urine drug screen. History of significant alcohol use in the past. NPO status. IV fluids Zofran 4 mg IV every 6 hours as needed. Famotidine 20 mg IV every 12 hours. Acetaminophen 1 g IV every 8 hours as needed mild pain or temperature. Morphine 2 mg IV every 4 hours as needed severe pain. Consult gastroenterology. Remainder of orders and notations as noted. Resident Activity Tracking Resident Involvement: Resident Care Provided Care Provided: Adult Hospital Medicine (1) Acute pancreatitis Acute pancreatitis complication: unspecified Pancreatitis type: other Qualified Code(s): K85.80 - Other acute pancreatitis without necrosis or infection
[2018-11-07] MEDS: LACTATED RINGER'S 1,000 ML IV SCH ×5 (05:25→22:10)
--- NOTE | 2018-11-07 06:14 | Ultrasound Report ---
US gallbladder HISTORY: Pain. Nausea. RUQ pain COMPARISON: None. FINDINGS: Trace sludge within the gallbladder. No shadowing gallstones. Fatty infiltration of liver. Pancreas i s poorly seen due to overlying bowel content. Common bile duct is 5 mm. Right kidney is negative for hydronephrosis. IMPRESSION: 1. Limited study due to patient's large body habitus. 2. Trace amount of gallbladder sludge. 3. Fatty replacement of the liver. The above report was generated using voice recognition software. It may contain grammatical, syntax or spelling errors. Electronically signed by: Paramjit Guerra M.D. 11/07/2018 6:13 AM
--- NOTE | 2018-11-07 06:19 | CT Scan Report ---
CT abd pelvis IV con only CT DOSE: 1459.66 mGy.cm HISTORY: Pain. Nausea. Abd pain. Elevated white count. TECHNIQUE: Multiaxial CT images of the abdomen and pelvis were performed following the use of intrave nous contrast. A dose lowering technique was utilized adhering to the principles of ALARA. COMPARISON STUDY: 07/28/2013 FINDINGS: Lung bases are clear. There is fatty replacement of the liver. Spleen and gallbladder are u nremarkable. Findings of mild to moderate edematous change of the pancreatic head and uncinate process. There is a mild amount of peripancreatic infiltrative change. No evidence for abscess or collection. No signifi cant pseudocyst. Kidneys enhance appropriately. No evidence of hydronephrosis. Nonobstructive bowel pattern. Chronic sigmoid diverticulosis. IMPRESSION: 1. Acute pancreatitis involving the pancreatic uncinate process and to lesser extent pancreatic head. 2. Moderate peripancreatic infiltrative change. 3. No evidence for abscess collection or obstruction. 4. Chronic sigmoid diverticulosis. The above report was generated using voice recognition software. It may contain grammatical, syntax or spelling errors. Electronically signed by: Paramjit Guerra M.D. 11/07/2018 6:18 AM
[2018-11-07] MEDS: LEVOTHYROXINE SODIUM 200 MCG TABLET PO SCH (06:30)
[2018-11-07] MEDS: ACETAMINOPHEN 325 MG TAB PO PRN ×2 (06:30→22:39)
[2018-11-07 08:08] LABS: Chol HDL Ratio 5; Cholesterol 182 mg/dl (0-200); HDL Cholesterol 38 mg/dl; LDL Cholesterol Calculated 126 mg/dl; Triglycerides 92 mg/dl (0-150); VLDL Cholesterol 18 mg/dl
[2018-11-07] MEDS ORDERED: PANTOprazole 40 MG TAB PO SCH (09:00)
--- NOTE | 2018-11-07 09:06 | Hospitalist Progress Note ---
Date of Service November 07, 2018 Assessment & Plan (1) Right upper quadrant abdominal pain: 53-year-old male was admitted on 07 Nov 2018 for progressively worsening right upper quadrant pain. Pancreatitis, right upper quadrant pain: Prior history of pancreatitis back in July 2013, Denies EtOH use. Quite tender in the RUQ. Gallbladder ultrasound (overnight read) notes no gallstones or biliary duct dilatation, positive gallbladder sludge, positive sonographic Liu's, hepatomegaly, and echogenic liver suggesting fatty infiltration/hepatocellular disease. CT a/p with contrast (overnight read) noted stranding in the pancreatic head and duodenum suggestive of either pancreatitis, duodenitis or PUD, or mild fatty liver. Consult GI. Consult general surgery consideration of elective cholecystectomy in the future. Pain control hydration following LFTs remains n.p.o. Prolonged QTc: EKG was NSR, rate 87, with QTc of 478. avoid Zofran - Hypertension, hyperlipidemia: Will hold his home indapamide while on IVF replacement. - Factor V Leiden deficiency, history of left lower extremity DVT, PE: We will hold Coumadin and restart Lovenox therapy and INR daily - Hypothyroidism: Continue with Synthroid. - GERD: Continue home omeprazole. - Type 2 diabetes: Sep 2018 HbA1c was 6.9. Patient is pursuing lifestyle changes before starting medication. Says if needed - Degenerative spine changes, spinal stenosis: Also noted on overnight CT a/p read. He does have history of lumbar disc degeneration and previous herniated disc repair. Code status: Full code. Diet: NPO except meds. DVT prophy: Coumadin as above. (2) Acute pancreatitis: (3) Prolonged QT interval: (4) Hypertension: (5) Hyperlipidemia: (6) Factor V Leiden mutation: (7) Hypothyroidism: (8) History of pulmonary embolism: (9) History of DVT (deep vein thrombosis): (10) GERD (gastroesophageal reflux disease): (11) Diabetes mellitus: (12) Lumbar canal stenosis: (13) Lumbar arthropathy: Subjective Patient is having significant right upper quadrant pain which reports into the degree of laboratory abnormalities that he presents with. There is some gallbladder sludge noted on intake imaging of his upper quadrant however he does note elevation of his bilirubin. His lipase is only in the 4-[address] scan suggests more information of the pancreas itself. Patient continues to be hydrated remains with pain control and antiemetics. Surgery is considering performing a cholecystectomy in the short-term future once his anticoagulation is reversed Review of Systems Review of Systems: ROS: well nourished well developed. No double vision blurry vision No problems with speech or swallowing No palpitations, chest pain or pressure No Wheezing or breathing issues pain in upper right abdomen, is intense No burning urine urine frequency or changes in color No focal joint pain or muscle pain No skin rashes or oral lesions No unusual bruising or bleeding No focused back pain or numbness or loss of strength No changes in memory or confusion Physical Exam Physical Exam: The patient appeared well nourished and normally developed. Vital signs as documented. Head exam is unremarkable. normocephalic, atraumatic eyes are anicteric Neck is without jugular venous distension, thyromegaly, or lymphademopathy Lungs are clear to auscultation and percussion. Cardiac exam reveals Rhythm is regular. First and second heart sounds normal. Abdominal exam reveals Significant abdominal pain in the right upper quadrant radiating to his back he has guarding but no rebound or acute abdomen signs Extremities are nonedematous and both pedal pulses are present Neurologic exam is A&Ox3, no focal deficits, strength is equal bilateral Psychologically seems neither anxious or depressed Skin is warm Dry there is no jaundice Results & Data Vital Signs (Past 12 Hours) Vital Signs Temp Pulse Pulse Resp BP BP Pulse Ox 11/07/18 05:26 36.7 C 70 18 157/91 H 96 11/07/18 04:58 62 18 145/91 H 96 11/07/18 03:33 65 16 166/93 H 98 11/07/18 02:24 71 20 146/97 H 95 11/07/18 00:39 67 20 146/89 H 96 11/06/18 23:34 93 11/06/18 23:18 88 20 154/98 H 100 11/06/18 22:31 36.9 C 88 22 162/99 H 99 (1) Acute pancreatitis Acute pancreatitis complication: unspecified Pancreatitis type: other Qualified Code(s): K85.80 - Other acute pancreatitis without necrosis or infection
[2018-11-07 10:08] LABS: BUN Creatinine Ratio 9.1 (10-20); Calcium 8.6 mg/dl (8.5-10.1); Creatinine Clr Calc Pharmacy 104.7 ml/min; Est GFR (African American) 90.6; Est GFR (Non-African American) 78.2; Magnesium 1.9 mg/dl (1.8-2.4); Potassium 3.8 mmol/L (3.5-5.1)
--- NOTE | 2018-11-07 10:33 | Gastrointestinal Consultation ---
Date of Consultation November 07, 2018 Assessment & Plan (1) Acute pancreatitis: 53 year old male who presents with 48 hours of upper abdominal pain, nausea no vomiting. ABD Us w/ GB sludge, CT imaging concerning for acute pancreatitis but no evidence of abscess, fluid collection etc. No ETOH use, did start indapamide about 6 months ago. He does recall bouts of right sided abd pain, nausea intermittent over the past few months He is awake, alert and oriented. Has remained afebrile, leukocytosis 15. No signs of PEPE, LFTs non-elevated and lipase 500 - LR 250 mL/hr - Watch for appropriate drop in HCT - Antiemetics PRN (history prolonged QT) - Analgesia PRN - Will need a general surgery consultation to discuss cholecystectomy - Appreciate ongoing management per the primary service GI to follow. Thank you for allowing us to participate in the care of this patient. Please call with any acute changes, questions or concerns. Please see addendum below with additional recommendation from my supervising physician. Present on Admission?: Yes Supervising Physician Co-Signing Physician Notes Attending attestation I have seen, examined this patient, and agree with the findings and above by our mid-level provider HERMINIA De La Rosa. -Likely acute gallstone pancreatitis given sludge and gallbladder no other obvious risk factors appears quite dry on presentation and hematocrit revealed hemoconcentration marking a high risk feature for complications. -Fortunately creatinine and respiratory status is normal, no fevers, chills. -Aggressive IVF with LR, pain control, and general surgery consultation to discuss cholecystectomy History of Present Illness Reason for Consultation: pancreatitis Requesting Physician: Zay Attending Physician: Minesh Collazo MD History of Present Illness 53 year old male with history of HTN, dyslipidemia, Factor V Leiden, prior PE/DEVT on coumadin, GERD and others below who presents through the ED for evaluation of abd pain. GI asked to evaluate as work up was concerning for acute pancreatits. Pt was seen and evaluated, chart reivewed. he notes that about 48 hours ago he woke up not feling well. At that time he had mild abd pain, nausea. This persisted and he developed severe upper abd pain. Constant. Sharp stabbing. Worse in RUQ and epigastric region but did radiation to his left abd as well. Nausea but no vomiting. No change in bowels movements. No fever chills, CP, SOB. No ETOH No marijuana No supplements Started indapaminde about 5/6 months ago ABD US: GB sludge, but no stone or biliary dilation CT ABD/Pelvis: Spleen and gallbladder are unremarkable. Findings of mild to moderate edematous change of the pancreatic head and uncinate process. There is a mild amount of peripancreatic infiltrative change. No evidence for abscess or collection. No significant pseudocyst Allergies Allergy/AdvReac Type Severity Reaction Status Date / Time No Known Allergies Allergy Unknown Verified 11/07/18 01:11 Home Medications Home Medications Medication Instructions Recorded Confirmed Type indapamide 1.25 mg PO QAM 11/07/18 11/07/18 History levothyroxine 200 mcg PO DAILY 11/07/18 11/07/18 History omeprazole 20 mg PO DAILY 11/07/18 11/07/18 History warfarin 7.5 mg PO DAILY 11/07/18 11/07/18 History Patient History Medical History Hypothyroidism History of pulmonary embolism Pancreatitis (Acute 07/28/13) Surgical History Previous back surgery Social History Preferred Language: Bengali Communication Ability: 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 Beliefs That Will Affect Care: None Current Living Situation: Family Other Information That Helps Us Care for You: No Feels Safe at Home: Yes Safety Concerns: Feels Safe At This Time Smoking Status: Light tobacco smoker Tobacco Type: cigars Cigarettes Per Day: once a year Do You Dip or Chew Tobacco: No Second Hand Exposure: No Tobacco Cessation Education Requested by Patient: No Hx Alcohol Use: No Hx Substance Use: No Review of Systems Constitutional: no fever, no chills and no fatigue Respiratory: no cough, no chest congestion and no dyspnea Cardiovascular: no chest pain, no radiating jaw, neck or arm pain, no dyspnea on exertion and no palpitations Gastrointestinal: + abdominal pain and + nausea; no belching, no vomiting, no change in stools, no fecal incontinence and no melena Physical Exam Constitutional: well developed, well nourished and + well hydrated Respiratory: normal respiratory effort, lungs clear to auscultation Cardiovascular: RRR, no murmur, no edema Gastrointestinal (Abdomen): Inspection/Auscultation: abdomen normal to inspection and normal bowel sounds Percussion/Palpation: + abdomen tender (epigastric and RUQ), + guarding and abdomen soft; abdomen not rigid Skin: no rashes, warm and dry Results & Data Vital Signs (Past 12 Hours) Vital Signs Temp Pulse Resp BP Pulse Ox 11/07/18 05:26 36.7 C 70 18 157/91 H 96 11/07/18 04:58 62 18 145/91 H 96 11/07/18 03:33 65 16 166/93 H 98 11/07/18 02:24 71 20 146/97 H 95 11/07/18 00:39 67 20 146/89 H 96 11/06/18 23:34 93 11/06/18 23:18 88 20 154/98 H 100 Laboratory Results 11/07/18 11/07/18 11/07/18 Range/Units 07:07 07:07 07:07 WBC (4.8-10.8) K/uL RBC (4.7-6.1) M/uL Hgb (14.0-18.0) g/dL Hct (42-52) % MCV (80-100) fL MCH (25-34) pg MCHC (32-36) g/dL RDW Std Deviation (36.4-46.3) fL RDW Coeff of Adrian (11.5-14.5) % Plt Count (130-400) K/uL MPV (7.4-10.4) fL Immature Gran % (Auto) % Neut % (Auto) % Lymph % (Auto) % Payette % (Auto) % Eos % (Auto) % Baso % (Auto) % Immature Gran # (Auto) (0.00-0.02) K/uL Neut # (Auto) (1.4-6.5) K/uL Lymph # (Auto) (1.2-3.4) K/uL Payette # (Auto) (0.11-0.59) K/uL Eos # (Auto) (0-0.5) K/uL Baso # (Auto) (0-0.2) K/uL PT (9.0-12.0) Seconds INR (0.9-1.1) APTT (21.0-31.0) Seconds PTT Ratio Sodium 139 Potassium 3.8 Chloride 103 Carbon Dioxide 30 Anion Gap 5.0 BUN 10 Creatinine 1.09 Est Cr Clr Drug Dosing 104.7 Est GFR ( Amer) 90.6 Est GFR (Non-Af Amer) 78.2 BUN/Creatinine Ratio 9.1 L Glucose 144 H Calcium 8.6 Magnesium 1.9 (1.8-2.4) mg/dl Total Bilirubin AST ALT Alkaline Phosphatase Troponin I Total Protein Albumin Globulin Albumin/Globulin Ratio Triglycerides 92 (0-150) mg/dl Cholesterol 182 (0-200) mg/dl LDL Cholesterol, Calc 126 mg/dl VLDL Cholesterol, Calc 18 mg/dl HDL Cholesterol 38 mg/dl Cholesterol/HDL Ratio 5 Amylase Lipase 416 H Urine Color Urine Appearance (Clear) Urine pH (4.5-7.5) Ur Specific Jonancy (1.000-1.030) Urine Protein (Negative) Urine Glucose (UA) (Negative) Urine Ketones (Negative) Urine Blood (Negative) Urine Nitrite (Negative) Urine Bilirubin (Negative) Urine Urobilinogen (Negative) Ur Leukocyte Esterase (Negative) Ethyl Alcohol mg/dL < 3.0 (0-3) mg/dl 11/07/18 11/07/18 11/07/18 Range/Units 00:42 00:42 00:42 WBC 15.74 H (4.8-10.8) K/uL RBC 5.01 (4.7-6.1) M/uL Hgb 15.7 (14.0-18.0) g/dL Hct 44.6 (42-52) % MCV 89.0 (80-100) fL MCH 31.3 (25-34) pg MCHC 35.2 (32-36) g/dL RDW Std Deviation 44.8 (36.4-46.3) fL RDW Coeff of Adrian 13.8 (11.5-14.5) % Plt Count 235 (130-400) K/uL MPV 10.1 (7.4-10.4) fL Immature Gran % (Auto) 0.3 % Neut % (Auto) 82.7 % Lymph % (Auto) 9.5 % Payette % (Auto) 6.7 % Eos % (Auto) 0.5 % Baso % (Auto) 0.3 % Immature Gran # (Auto) 0.05 H (0.00-0.02) K/uL Neut # (Auto) 13.01 H (1.4-6.5) K/uL Lymph # (Auto) 1.50 (1.2-3.4) K/uL Payette # (Auto) 1.05 H (0.11-0.59) K/uL Eos # (Auto) 0.08 (0-0.5) K/uL Baso # (Auto) 0.05 (0-0.2) K/uL PT 23.8 H (9.0-12.0) Seconds INR 2.5 H (0.9-1.1) APTT 37.5 H (21.0-31.0) Seconds PTT Ratio 1.4 Sodium 136 Potassium 3.6 Chloride 101 Carbon Dioxide 29 Anion Gap 6.0 BUN 11 Creatinine 1.10 Est Cr Clr Drug Dosing 104.4 Est GFR ( Amer) 89.6 Est GFR (Non-Af Amer) 77.3 BUN/Creatinine Ratio 9.6 L Glucose 137 H Calcium 8.5 Magnesium (1.8-2.4) mg/dl Total Bilirubin 0.5 AST 15 ALT 33 Alkaline Phosphatase 74 Troponin I < 0.015 Total Protein 7.2 Albumin 3.4 Globulin 3.8 Albumin/Globulin Ratio 0.9 Triglycerides (0-150) mg/dl Cholesterol (0-200) mg/dl LDL Cholesterol, Calc mg/dl VLDL Cholesterol, Calc mg/dl HDL Cholesterol mg/dl Cholesterol/HDL Ratio Amylase 84 Lipase 513 H Urine Color Urine Appearance (Clear) Urine pH (4.5-7.5) Ur Specific Jonancy (1.000-1.030) Urine Protein (Negative) Urine Glucose (UA) (Negative) Urine Ketones (Negative) Urine Blood (Negative) Urine Nitrite (Negative) Urine Bilirubin (Negative) Urine Urobilinogen (Negative) Ur Leukocyte Esterase (Negative) Ethyl Alcohol mg/dL (0-3) mg/dl 11/07/18 11/06/18 11/06/18 Range/Units 00:35 22:48 22:48 WBC (4.8-10.8) K/uL RBC (4.7-6.1) M/uL Hgb (14.0-18.0) g/dL Hct (42-52) % MCV (80-100) fL MCH (25-34) pg MCHC (32-36) g/dL RDW Std Deviation (36.4-46.3) fL RDW Coeff of Adrian (11.5-14.5) % Plt Count (130-400) K/uL MPV (7.4-10.4) fL Immature Gran % (Auto) % Neut % (Auto) % Lymph % (Auto) % Payette % (Auto) % Eos % (Auto) % Baso % (Auto) % Immature Gran # (Auto) (0.00-0.02) K/uL Neut # (Auto) (1.4-6.5) K/uL Lymph # (Auto) (1.2-3.4) K/uL Payette # (Auto) (0.11-0.59) K/uL Eos # (Auto) (0-0.5) K/uL Baso # (Auto) (0-0.2) K/uL PT 22.2 H (9.0-12.0) Seconds INR 2.3 H (0.9-1.1) APTT 35.7 H (21.0-31.0) Seconds PTT Ratio 1.3 Sodium Cancelled Potassium Cancelled Chloride Cancelled Carbon Dioxide Cancelled Anion Gap Cancelled BUN Cancelled Creatinine Cancelled Est Cr Clr Drug Dosing Cancelled Est GFR ( Amer) Cancelled Est GFR (Non-Af Amer) Cancelled BUN/Creatinine Ratio Cancelled Glucose Cancelled Calcium Cancelled Magnesium (1.8-2.4) mg/dl Total Bilirubin Cancelled AST Cancelled ALT Cancelled Alkaline Phosphatase Cancelled Troponin I Cancelled Total Protein Cancelled Albumin Cancelled Globulin Cancelled Albumin/Globulin Ratio Cancelled Triglycerides (0-150) mg/dl Cholesterol (0-200) mg/dl LDL Cholesterol, Calc mg/dl VLDL Cholesterol, Calc mg/dl HDL Cholesterol mg/dl Cholesterol/HDL Ratio Amylase Cancelled Lipase Cancelled Urine Color Yellow Urine Appearance Clear (Clear) Urine pH 6.5 (4.5-7.5) Ur Specific Jonancy 1.010 (1.000-1.030) Urine Protein Negative (Negative) Urine Glucose (UA) Negative (Negative) Urine Ketones Negative (Negative) Urine Blood Negative (Negative) Urine Nitrite Negative (Negative) Urine Bilirubin Negative (Negative) Urine Urobilinogen Negative (Negative) Ur Leukocyte Esterase Negative (Negative) Ethyl Alcohol mg/dL (0-3) mg/dl 11/06/18 Range/Units 22:48 WBC 19.48 H (4.8-10.8) K/uL RBC 5.45 (4.7-6.1) M/uL Hgb 17.7 (14.0-18.0) g/dL Hct 47.7 (42-52) % MCV 87.5 (80-100) fL MCH 32.5 (25-34) pg MCHC 37.1 H (32-36) g/dL RDW Std Deviation 44.5 (36.4-46.3) fL RDW Coeff of Adrian 13.9 (11.5-14.5) % Plt Count 315 (130-400) K/uL MPV 10.3 (7.4-10.4) fL Immature Gran % (Auto) 0.4 % Neut % (Auto) 76.9 % Lymph % (Auto) 12.5 % Payette % (Auto) 8.6 % Eos % (Auto) 1.1 % Baso % (Auto) 0.5 % Immature Gran # (Auto) 0.07 H (0.00-0.02) K/uL Neut # (Auto) 14.98 H (1.4-6.5) K/uL Lymph # (Auto) 2.44 (1.2-3.4) K/uL Payette # (Auto) 1.67 H (0.11-0.59) K/uL Eos # (Auto) 0.22 (0-0.5) K/uL Baso # (Auto) 0.10 (0-0.2) K/uL PT (9.0-12.0) Seconds INR (0.9-1.1) APTT (21.0-31.0) Seconds PTT Ratio Sodium Potassium Chloride Carbon Dioxide Anion Gap BUN Creatinine Est Cr Clr Drug Dosing Est GFR ( Amer) Est GFR (Non-Af Amer) BUN/Creatinine Ratio Glucose Calcium Magnesium (1.8-2.4) mg/dl Total Bilirubin AST ALT Alkaline Phosphatase Troponin I Total Protein Albumin Globulin Albumin/Globulin Ratio Triglycerides (0-150) mg/dl Cholesterol (0-200) mg/dl LDL Cholesterol, Calc mg/dl VLDL Cholesterol, Calc mg/dl HDL Cholesterol mg/dl Cholesterol/HDL Ratio Amylase Lipase Urine Color Urine Appearance (Clear) Urine pH (4.5-7.5) Ur Specific Jonancy (1.000-1.030) Urine Protein (Negative) Urine Glucose (UA) (Negative) Urine Ketones (Negative) Urine Blood (Negative) Urine Nitrite (Negative) Urine Bilirubin (Negative) Urine Urobilinogen (Negative) Ur Leukocyte Esterase (Negative) Ethyl Alcohol mg/dL (0-3) mg/dl (1) Acute pancreatitis Acute pancreatitis complication: unspecified Pancreatitis type: other Qualified Code(s): K85.80 - Other acute pancreatitis without necrosis or infection
--- NOTE | 2018-11-07 13:36 | Surgery Consultation ---
Date of Consultation November 07, 2018 Assessment & Plan (1) Right upper quadrant abdominal pain: 53 year-old male who presented to emergency department today with complaint of severe RUQ abdominal pain that woke him up 48 hours previously at 4 am. Pain has been persistent since morning, Sharp and burning in nature. Leukocytosis of 17K on arrival, 15K today. T. bili and lfts wnl. Lipase elevated at 500 on arrival, 400 today. US showing gallbladder sludge but no stones. No evidence of acute cholecystitis on ultrasound. CT scan showing evidence of acute pancreatitis possible duodenitis. Plan:acute pancreatitis, gallbladder sludge treat pancreatitis first, Hold coumadin for 4 days, start tomorrow, lovenox 30mg SQ q12h during holding coumadin possible to do laparoscopic cholecystectomy on 11/02. D/W the plan, pt agrees with the plan, I answered all questions, repeat labs tomorrow will F/U (2) Acute pancreatitis: (3) Factor V Leiden mutation: On coumadin INR 2.5 today Supervising Physician Co-Signing Physician Notes Attending attestation I have seen, examined this patient, and agree with the findings and above by our mid-level provider HERMINIA De La Rosa. -Likely acute gallstone pancreatitis given sludge and gallbladder no other obvious risk factors appears quite dry on presentation and hematocrit revealed hemoconcentration marking a high risk feature for complications. -Fortunately creatinine and respiratory status is normal, no fevers, chills. -Aggressive IVF with LR, pain control, and general surgery consultation to discuss cholecystectomy History of Present Illness Reason for Consultation: RUQ abdominal pain, imaging indeterminate Requesting Physician: Dr. Zay MD Attending Physician: Minesh Collazo MD History of Present Illness Brad is a pleasant 53 year-old male who presented to emergency department early this morning with complaint of sudden epigastric/ruq abdominal pain that began 48 hours previously. States pain woke him up at 4 am Saturday. Pain described as sharp and burning in the right upper abdomen. States the pain lasted for 30 minutes and then resolved. States the same pain woke him up morning and has been persistent since. States his pain was off the charts when he presented to the emergency room. Denies of any similar episodes of pain in the past. Denies of any associated fever, chills, sweats, nausea, vomiting, chest pain , shortness of breath, difficulty breathing, diarrhea, constipation, blood in stools, black/tarry stools, acholic stools. ER work-up included labs which showed leukocytosis of 17K, normal t. bili and lfts. Lipase elevated at 500. US of abdomen showed gallbladder sludge however no gallstones or pericholecystic fluid, CBD [address] scan showing inflammation surrounding pancreatic head and duodenum consistent with acute pancreatitis or duodenitis. Brad states he is still having pain, currently rating 7/10. IV pain medication helps. No nausea or vomiting. Labs today show mild improvement of leukocytosis to 15K and lipase down to 400. History of umbilical hernia repair without mesh about 7 years ago. No other abdominal surgeries. History of factor V Leiden deficiency with history of DVT x 2 and pulmonary embolism x 1. On Coumadin. INR today 2.5 Allergies Allergy/AdvReac Type Severity Reaction Status Date / Time No Known Allergies Allergy Unknown Verified 11/07/18 01:11 Home Medications Home Medications Medication Instructions Recorded Confirmed Type indapamide 1.25 mg PO QAM 11/07/18 11/07/18 History levothyroxine 200 mcg PO DAILY 11/07/18 11/07/18 History omeprazole 20 mg PO DAILY 11/07/18 11/07/18 History warfarin 7.5 mg PO DAILY 11/07/18 11/07/18 History Patient History Medical History Hypothyroidism History of pulmonary embolism Pancreatitis (Acute 07/28/13) Factor V Leiden Surgical History History of repair of right rotator cuff History of umbilical hernia repair Previous back surgery Social History Preferred Language: Pashto Communication Ability: Effective 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 Beliefs That Will Affect Care: None Current Living Situation: Family Other Information That Helps Us Care for You: No Feels Safe at Home: Yes Safety Concerns: Feels Safe At This Time Smoking Status: Light tobacco smoker Tobacco Type: cigars Cigarettes Per Day: once a year Do You Dip or Chew Tobacco: No Second Hand Exposure: No Tobacco Cessation Education Requested by Patient: No Hx Alcohol Use: No Hx Substance Use: No Review of Systems Review of Systems: All systems reviewed & are unremarkable except as noted in HPI & below Physical Exam Constitutional: WD/WN, vitals as above + not well developed, + not well nourished, no acute distress and not ill appearing Respiratory: normal respiratory effort; no respiratory distress, no labored breathing, no retractions and does not use accessory muscles Cardiovascular: RRR, no murmur, no edema Gastrointestinal (Abdomen): Inspection/Auscultation: abdomen normal to inspection; abdomen not distended Percussion/Palpation: + abdomen tender (RUQ on mild palpation), + guarding (RUQ, positive Liu's sign) and abdomen soft; abdomen not rigid Skin: no rashes, warm and dry Psychiatric: A+Ox3, euthymic affect Results & Data Vital Signs (Past 12 Hours) Vital Signs Temp Pulse Resp BP Pulse Ox 11/07/18 05:26 36.7 C 70 18 157/91 H 96 11/07/18 04:58 62 18 145/91 H 96 11/07/18 03:33 65 16 166/93 H 98 11/07/18 02:24 71 20 146/97 H 95 Laboratory Results 11/07/18 11/07/18 11/07/18 Range/Units 07:07 07:07 07:07 WBC (4.8-10.8) K/uL RBC (4.7-6.1) M/uL Hgb (14.0-18.0) g/dL Hct (42-52) % MCV (80-100) fL MCH (25-34) pg MCHC (32-36) g/dL RDW Std Deviation (36.4-46.3) fL RDW Coeff of Adrian (11.5-14.5) % Plt Count (130-400) K/uL MPV (7.4-10.4) fL Immature Gran % (Auto) % Neut % (Auto) % Lymph % (Auto) % [place] % (Auto) % Eos % (Auto) % Baso % (Auto) % Immature Gran # (Auto) (0.00-0.02) K/uL Neut # (Auto) (1.4-6.5) K/uL Lymph # (Auto) (1.2-3.4) K/uL [place] # (Auto) (0.11-0.59) K/uL Eos # (Auto) (0-0.5) K/uL Baso # (Auto) (0-0.2) K/uL PT (9.0-12.0) Seconds INR (0.9-1.1) APTT (21.0-31.0) Seconds PTT Ratio Sodium 139 Potassium 3.8 Chloride 103 Carbon Dioxide 30 Anion Gap 5.0 BUN 10 Creatinine 1.09 Est Cr Clr Drug Dosing 104.7 Est GFR ( Amer) 90.6 Est GFR (Non-Af Amer) 78.2 BUN/Creatinine Ratio 9.1 L Glucose 144 H Calcium 8.6 Magnesium 1.9 (1.8-2.4) mg/dl Total Bilirubin AST ALT Alkaline Phosphatase Troponin I Total Protein Albumin Globulin Albumin/Globulin Ratio Triglycerides 92 (0-150) mg/dl Cholesterol 182 (0-200) mg/dl LDL Cholesterol, Calc 126 mg/dl VLDL Cholesterol, Calc 18 mg/dl HDL Cholesterol 38 mg/dl Cholesterol/HDL Ratio 5 Amylase Lipase 416 H Urine Color Urine Appearance (Clear) Urine pH (4.5-7.5) Ur Specific [place] (1.000-1.030) Urine Protein (Negative) Urine Glucose (UA) (Negative) Urine Ketones (Negative) Urine Blood (Negative) Urine Nitrite (Negative) Urine Bilirubin (Negative) Urine Urobilinogen (Negative) Ur Leukocyte Esterase (Negative) Ethyl Alcohol mg/dL < 3.0 (0-3) mg/dl 11/07/18 11/07/18 11/07/18 Range/Units 00:42 00:42 00:42 WBC 15.74 H (4.8-10.8) K/uL RBC 5.01 (4.7-6.1) M/uL Hgb 15.7 (14.0-18.0) g/dL Hct 44.6 (42-52) % MCV 89.0 (80-100) fL MCH 31.3 (25-34) pg MCHC 35.2 (32-36) g/dL RDW Std Deviation 44.8 (36.4-46.3) fL RDW Coeff of Adrian 13.8 (11.5-14.5) % Plt Count 235 (130-400) K/uL MPV 10.1 (7.4-10.4) fL Immature Gran % (Auto) 0.3 % Neut % (Auto) 82.7 % Lymph % (Auto) 9.5 % [place] % (Auto) 6.7 % Eos % (Auto) 0.5 % Baso % (Auto) 0.3 % Immature Gran # (Auto) 0.05 H (0.00-0.02) K/uL Neut # (Auto) 13.01 H (1.4-6.5) K/uL Lymph # (Auto) 1.50 (1.2-3.4) K/uL [place] # (Auto) 1.05 H (0.11-0.59) K/uL Eos # (Auto) 0.08 (0-0.5) K/uL Baso # (Auto) 0.05 (0-0.2) K/uL PT 23.8 H (9.0-12.0) Seconds INR 2.5 H (0.9-1.1) APTT 37.5 H (21.0-31.0) Seconds PTT Ratio 1.4 Sodium 136 Potassium 3.6 Chloride 101 Carbon Dioxide 29 Anion Gap 6.0 BUN 11 Creatinine 1.10 Est Cr Clr Drug Dosing 104.4 Est GFR ( Amer) 89.6 Est GFR (Non-Af Amer) 77.3 BUN/Creatinine Ratio 9.6 L Glucose 137 H Calcium 8.5 Magnesium (1.8-2.4) mg/dl Total Bilirubin 0.5 AST 15 ALT 33 Alkaline Phosphatase 74 Troponin I < 0.015 Total Protein 7.2 Albumin 3.4 Globulin 3.8 Albumin/Globulin Ratio 0.9 Triglycerides (0-150) mg/dl Cholesterol (0-200) mg/dl LDL Cholesterol, Calc mg/dl VLDL Cholesterol, Calc mg/dl HDL Cholesterol mg/dl Cholesterol/HDL Ratio Amylase 84 Lipase 513 H Urine Color Urine Appearance (Clear) Urine pH (4.5-7.5) Ur Specific [place] (1.000-1.030) Urine Protein (Negative) Urine Glucose (UA) (Negative) Urine Ketones (Negative) Urine Blood (Negative) Urine Nitrite (Negative) Urine Bilirubin (Negative) Urine Urobilinogen (Negative) Ur Leukocyte Esterase (Negative) Ethyl Alcohol mg/dL (0-3) mg/dl 11/07/18 11/06/18 11/06/18 Range/Units 00:35 22:48 22:48 WBC (4.8-10.8) K/uL RBC (4.7-6.1) M/uL Hgb (14.0-18.0) g/dL Hct (42-52) % MCV (80-100) fL MCH (25-34) pg MCHC (32-36) g/dL RDW Std Deviation (36.4-46.3) fL RDW Coeff of Adrian (11.5-14.5) % Plt Count (130-400) K/uL MPV (7.4-10.4) fL Immature Gran % (Auto) % Neut % (Auto) % Lymph % (Auto) % [place] % (Auto) % Eos % (Auto) % Baso % (Auto) % Immature Gran # (Auto) (0.00-0.02) K/uL Neut # (Auto) (1.4-6.5) K/uL Lymph # (Auto) (1.2-3.4) K/uL [place] # (Auto) (0.11-0.59) K/uL Eos # (Auto) (0-0.5) K/uL Baso # (Auto) (0-0.2) K/uL PT 22.2 H (9.0-12.0) Seconds INR 2.3 H (0.9-1.1) APTT 35.7 H (21.0-31.0) Seconds PTT Ratio 1.3 Sodium Cancelled Potassium Cancelled Chloride Cancelled Carbon Dioxide Cancelled Anion Gap Cancelled BUN Cancelled Creatinine Cancelled Est Cr Clr Drug Dosing Cancelled Est GFR ( Amer) Cancelled Est GFR (Non-Af Amer) Cancelled BUN/Creatinine Ratio Cancelled Glucose Cancelled Calcium Cancelled Magnesium (1.8-2.4) mg/dl Total Bilirubin Cancelled AST Cancelled ALT Cancelled Alkaline Phosphatase Cancelled Troponin I Cancelled Total Protein Cancelled Albumin Cancelled Globulin Cancelled Albumin/Globulin Ratio Cancelled Triglycerides (0-150) mg/dl Cholesterol (0-200) mg/dl LDL Cholesterol, Calc mg/dl VLDL Cholesterol, Calc mg/dl HDL Cholesterol mg/dl Cholesterol/HDL Ratio Amylase Cancelled Lipase Cancelled Urine Color Yellow Urine Appearance Clear (Clear) Urine pH 6.5 (4.5-7.5) Ur Specific [place] 1.010 (1.000-1.030) Urine Protein Negative (Negative) Urine Glucose (UA) Negative (Negative) Urine Ketones Negative (Negative) Urine Blood Negative (Negative) Urine Nitrite Negative (Negative) Urine Bilirubin Negative (Negative) Urine Urobilinogen Negative (Negative) Ur Leukocyte Esterase Negative (Negative) Ethyl Alcohol mg/dL (0-3) mg/dl 11/06/18 Range/Units 22:48 WBC 19.48 H (4.8-10.8) K/uL RBC 5.45 (4.7-6.1) M/uL Hgb 17.7 (14.0-18.0) g/dL Hct 47.7 (42-52) % MCV 87.5 (80-100) fL MCH 32.5 (25-34) pg MCHC 37.1 H (32-36) g/dL RDW Std Deviation 44.5 (36.4-46.3) fL RDW Coeff of Adrian 13.9 (11.5-14.5) % Plt Count 315 (130-400) K/uL MPV 10.3 (7.4-10.4) fL Immature Gran % (Auto) 0.4 % Neut % (Auto) 76.9 % Lymph % (Auto) 12.5 % [place] % (Auto) 8.6 % Eos % (Auto) 1.1 % Baso % (Auto) 0.5 % Immature Gran # (Auto) 0.07 H (0.00-0.02) K/uL Neut # (Auto) 14.98 H (1.4-6.5) K/uL Lymph # (Auto) 2.44 (1.2-3.4) K/uL [place] # (Auto) 1.67 H (0.11-0.59) K/uL Eos # (Auto) 0.22 (0-0.5) K/uL Baso # (Auto) 0.10 (0-0.2) K/uL PT (9.0-12.0) Seconds INR (0.9-1.1) APTT (21.0-31.0) Seconds PTT Ratio Sodium Potassium Chloride Carbon Dioxide Anion Gap BUN Creatinine Est Cr Clr Drug Dosing Est GFR ( Amer) Est GFR (Non-Af Amer) BUN/Creatinine Ratio Glucose Calcium Magnesium (1.8-2.4) mg/dl Total Bilirubin AST ALT Alkaline Phosphatase Troponin I Total Protein Albumin Globulin Albumin/Globulin Ratio Triglycerides (0-150) mg/dl Cholesterol (0-200) mg/dl LDL Cholesterol, Calc mg/dl VLDL Cholesterol, Calc mg/dl HDL Cholesterol mg/dl Cholesterol/HDL Ratio Amylase Lipase Urine Color Urine Appearance (Clear) Urine pH (4.5-7.5) Ur Specific [place] (1.000-1.030) Urine Protein (Negative) Urine Glucose (UA) (Negative) Urine Ketones (Negative) Urine Blood (Negative) Urine Nitrite (Negative) Urine Bilirubin (Negative) Urine Urobilinogen (Negative) Ur Leukocyte Esterase (Negative) Ethyl Alcohol mg/dL (0-3) mg/dl Diagnostic Findings US gallbladder HISTORY: Pain. Nausea. RUQ pain COMPARISON: None. FINDINGS: Trace sludge within the gallbladder. No shadowing gallstones. Fatty infiltration of liver. Pancreas is poorly seen due to overlying bowel content. Common bile duct is 5 mm. Right kidney is negative for hydronephrosis. IMPRESSION: 1. Limited study due to patient's large body habitus. 2. Trace amount of gallbladder sludge. 3. Fatty replacement of the liver. CT abd pelvis IV con only CT DOSE: 1459.66 mGy.cm HISTORY: Pain. Nausea. Abd pain. Elevated white count. TECHNIQUE: Multiaxial CT images of the abdomen and pelvis were performed following the use of intravenous contrast. A dose lowering technique was utilized adhering to the principles of ALARA. COMPARISON STUDY: 07/28/2013 FINDINGS: Lung bases are clear. There is fatty replacement of the liver. Spleen and gallbladder are unremarkable. Findings of mild to moderate edematous change of the pancreatic head and uncinate process. There is a mild amount of peripancreatic infiltrative change. No evidence for abscess or collection. No significant pseudocyst. Kidneys enhance appropriately. No evidence of hydronephrosis. Nonobstructive bowel pattern. Chronic sigmoid diverticulosis. IMPRESSION: 1. Acute pancreatitis involving the pancreatic uncinate process and to lesser extent pancreatic head. 2. Moderate peripancreatic infiltrative change. 3. No evidence for abscess collection or obstruction. 4. Chronic sigmoid diverticulosis. (1) Acute pancreatitis Acute pancreatitis complication: unspecified Pancreatitis type: other Qualified Code(s): K85.80 - Other acute pancreatitis without necrosis or infection
[2018-11-07] MEDS: HYDROmorphone INJ 1 MG/ML SYRINGE IV PRN ×3 (13:44→21:40)
[2018-11-07] MEDS ORDERED: WARFARIN SOD 7.5 MG TAB PO SCH (16:00)
[2018-11-07] MEDS: metroNIDAZOLE 500 MG/100 ML BAG IV SCH ×2 (16:36→23:33)
[2018-11-07] MEDS: PROMETHAZINE HCL 12.5 MG in SODIUM CHLORIDE 0.9% 50 ML IV PRN (17:09)
[2018-11-07] MEDS: CIPROFLOXACIN 400 MG/200 ML BAG IV SCH (18:33)
[2018-11-08] MEDS: HYDROmorphone INJ 1 MG/ML SYRINGE IV PRN ×7 (01:47→22:28)
[2018-11-08] MEDS: LEVOTHYROXINE SODIUM 200 MCG TABLET PO SCH (05:25)
[2018-11-08] MEDS: LACTATED RINGER'S 1,000 ML IV SCH ×3 (05:25→22:28)
[2018-11-08] MEDS: CIPROFLOXACIN 400 MG/200 ML BAG IV SCH ×2 (05:25→17:19)
[2018-11-08 07:08] LABS: Basophils # (auto) 0.03 K/uL (0-0.2); Basophils % (auto) 0.2 %; Eosinophils # (auto) 0.09 K/uL (0-0.5); Eosinophils % (auto) 0.6 %; Hematocrit (blood only) 40.4 % (42-52); Hemoglobin 14.6 g/dL (14.0-18.0); Immature Granulocytes # (auto) 0.04 K/uL (0.00-0.02); Immature Granulocytes % (auto) 0.3 %; Lymphocytes # (auto) 1.08 K/uL (1.2-3.4); Mean Corpuscular Hgb Conc 36.1 g/dL (32-36); Mean Corpuscular Volume 89.2 fL (80-100); Mean Platelet Volume 9.7 fL (7.4-10.4); Monocytes # (auto) 1.42 K/uL (0.11-0.59); Monocytes % (auto) 9.2 %; Neutrophils # (auto) 12.74 K/uL (1.4-6.5); Neutrophils % (auto) 82.7 %; Platelet Count 215 K/uL (130-400); RDW Coefficient of Variation 13.8 % (11.5-14.5); RDW Standard Deviation 45.3 fL (36.4-46.3); Red Blood Count 4.53 M/uL (4.7-6.1)
[2018-11-08 07:14] LABS: Prothrombin Time 19.8 Seconds (9.0-12.0)
[2018-11-08 07:47] LABS: Albumin Level 2.7 gm/dl (3.4-5.0); BUN Creatinine Ratio 10.5 (10-20); Calcium 8.7 mg/dl (8.5-10.1); Creatinine Clr Calc Pharmacy 111.9 ml/min; Est GFR (African American) 98.2; Est GFR (Non-African American) 84.7; Potassium 3.8 mmol/L (3.5-5.1)
[2018-11-08 07:49] LABS: Albumin Globulin Ratio 0.7 (0.9-2); Total Protein 6.7 gm/dl (6.4-8.2)
[2018-11-08] MEDS: metroNIDAZOLE 500 MG/100 ML BAG IV SCH ×3 (08:38→23:54)
[2018-11-08] MEDS: PROMETHAZINE HCL 12.5 MG in SODIUM CHLORIDE 0.9% 50 ML IV PRN (09:34)
--- NOTE | 2018-11-08 10:33 | Surgery Progress Note ---
Date of Service doing better, less pain,no nausea, no vomiting, normal lipase today, November 08, 2018 Assessment & Plan (1) Right upper quadrant abdominal pain: 53 year-old male who presented to emergency department today with complaint of severe RUQ abdominal pain that woke him up 48 hours previously at 4 am. Pain has been persistent since morning, Sharp and burning in nature. Leukocytosis of 17K on arrival, 15K today. T. bili and lfts wnl. Lipase elevated at 500 on arrival, 400 today. US showing gallbladder sludge but no stones. No evidence of acute cholecystitis on ultrasound. CT scan showing evidence of acute pancreatitis possible duodenitis. Plan:acute pancreatitis, gallbladder sludge treat pancreatitis first, Hold coumadin for 4 days, start tomorrow, lovenox 30mg SQ q12h during holding coumadin possible to do laparoscopic cholecystectomy on 11/11. D/W the plan, pt agrees with the plan, I answered all questions, repeat labs tomorrow will F/U 11/08/2018 10:31am doing fine, HIDA scan on Saturday, lovenox 30mg SQ q12h, possible do lap coleen on 11/11/2018 will F/U (2) Acute pancreatitis: (3) Factor V Leiden mutation: On coumadin INR 2.5 today Subjective Patient is having significant right upper quadrant pain which reports into the degree of laboratory abnormalities that he presents with. There is some gallbladder sludge noted on intake imaging of his upper quadrant however he does note elevation of his bilirubin. His lipase is only in the 4-[address] scan suggests more information of the pancreas itself. Patient continues to be hydrated remains with pain control and antiemetics. Surgery is considering performing a cholecystectomy in the short-term future once his anticoagulation is reversed Physical Exam Constitutional: WD/WN, vitals as above well developed and well nourished Neck: trachea midline, no thyromegaly Respiratory: normal respiratory effort, lungs clear to auscultation normal respiratory effort Cardiovascular: RRR, no murmur, no edema Rate/Rhythm: regular rate and regular rhythm Heart Sounds: normal S1 and normal S2 Gastrointestinal (Abdomen): Percussion/Palpation: + abdomen tender and abdomen soft tenderness at RUQ, no rebound pain, no guarding, no rigidity. Neurologic: patellar DTR's 2+ bilat, sensation intact Psychiatric: Orientation: alert and oriented x 3 Results & Data Vital Signs (Past 12 Hours) Vital Signs Temp Pulse Resp BP Pulse Ox 11/08/18 07:00 37.4 C 71 18 124/77 97 11/07/18 23:40 36.8 C 11/07/18 22:30 38 C H 73 18 133/74 92 Laboratory Results Abnormal lab results 11/08/18 11/08/18 11/08/18 Range/Units 06:51 06:51 06:51 WBC 15.40 H (4.8-10.8) K/uL RBC 4.53 L (4.7-6.1) M/uL Hct 40.4 L (42-52) % MCHC 36.1 H (32-36) g/dL Immature Gran # (Auto) 0.04 H (0.00-0.02) K/uL Neut # (Auto) 12.74 H (1.4-6.5) K/uL Lymph # (Auto) 1.08 L (1.2-3.4) K/uL [place] # (Auto) 1.42 H (0.11-0.59) K/uL PT 19.8 H (9.0-12.0) Seconds INR 2.0 H (0.9-1.1) Sodium 134 L (136-145) mmol/L Glucose 141 H (70-99) mg/dl AST 11 L (15-37) U/L Albumin 2.7 L (3.4-5.0) gm/dl Albumin/Globulin Ratio 0.7 L (0.9-2) (1) Acute pancreatitis Acute pancreatitis complication: unspecified Pancreatitis type: other Qualified Code(s): K85.80 - Other acute pancreatitis without necrosis or infection
--- NOTE | 2018-11-08 11:17 | Gastroenterology Progress Note ---
Date of Service November 08, 2018 Assessment & Plan (1) Acute pancreatitis: 53 year old male who presents with acute pancreatitis likely secondary to biliary source. - Continue LR - Antiemetics PRN (history prolonged QT) - Analgesia PRN - General surgery following - Appreciate ongoing management per the primary service -Still with pain and now with a fever, I would reevaluate at lunch or dinner time and if pain is improved then consider liquids, however if pain persists to worsens or has another fever, then would repeat contrasted IV CT scan to ensure that there is been no development of fluid collections and/or necrosis. Subjective Very mild improvement in pain, did have one episode of a fever last evening. Physical Exam Physical Exam: Awake alert oriented x3 no distress Normal active bowel sounds, soft, pain in the left upper quadrant No peripheral edema Lungs are clear Heart is regular Neurologically intact Results & Data Vital Signs (Past 12 Hours) Vital Signs Temp Pulse Resp BP Pulse Ox 11/08/18 07:00 37.4 C 71 18 124/77 97 11/07/18 23:40 36.8 C (1) Acute pancreatitis Acute pancreatitis complication: unspecified Pancreatitis type: other Qualified Code(s): K85.80 - Other acute pancreatitis without necrosis or infection
[2018-11-08] MEDS ORDERED: IOVERSOL 100ml IV PRN (12:03)
[2018-11-08] MEDS: ACETAMINOPHEN 325 MG TAB PO PRN ×2 (12:41→16:52)
--- NOTE | 2018-11-08 13:04 | CT Scan Report ---
ABDOMEN AND PELVIS CT WITH IV CONTRAST CT DOSE: 1151.91 mGy.cm HISTORY: Mid abdominal pain. eval for pancreatic necrosis and pericholic fluid TECHNIQUE: Multiaxial CT images of the abdomen and pelvis were performed following the use of intrave nous contrast. A dose lowering technique was utilized adhering to the principles of ALARA. COMPARISON STUDY: Abdomen and pelvis CT 11/07/2018. FINDINGS: Bibasilar linear densities consistent with subsegmental atelectasis. There is a 7 mm nodule at the base of the right lower lobe. This is best seen on image 60. No pneumoperitoneum. No pneumato sis. Old, healed right-sided rib fractures. Hepatic steatosis. Hyperdensity within the gallbladder fa vors vicarious excretion of contrast from the recent CT examination. No gallbladder wall thickening. The spleen, adrenal glands, and kidneys are unremarkable. The portal and mesenteric vessels appear pa tent. Peripancreatic inflammatory change at the pancreatic head has slightly progressed consistent wi th acute pancreatitis. There are few prominent peripancreatic lymph nodes which are likely reactive. Normal caliber common bile duct. Slight decreased enhancement within the neck of the pancreas may rep resent fatty change. This is unchanged compared the prior studies. No evidence for pancreatic necrosi s at this time. No loculated peripancreatic fluid collections. Trace fluid tracking along the right r ight anterior pararenal space has also slightly progressed. Thickening of the duodenum is likely reac tive to the acute pancreatitis. Degenerative changes within the lumbar spine. No evidence for bowel o bstruction. Colonic diverticulosis. Normal appendix. IMPRESSION: 1. Slight progression of the acute pancreatitis. However, no evidence for pancreatic necrosis or evens pancreatic loculated fluid collections. 2. No evidence for bowel obstruction. 3. Colonic diverticulosis. 4. A 7 mm nodule within the right lower lobe. This remains stable since a 2014 examination and is the refore considered to be benign. Electronically signed by: Frankie Barker M.D. 11/08/2018 1:02 PM
[2018-11-08] MEDS: ENOXAPARIN INJ 30 MG/0.3 ML SYR SQ SCH ×3 (13:52→23:41)
--- NOTE | 2018-11-08 14:51 | Hospitalist Progress Note ---
Date of Service November 08, 2018 Assessment & Plan (1) Right upper quadrant abdominal pain: 53-year-old male was admitted on 07 Nov 2018 for progressively worsening right upper quadrant pain. Pancreatitis, right upper quadrant pain: Prior history of pancreatitis back in July 2013, Denies EtOH use. Remains significantly tender in the right upper quadrant which is out of proportion to his imaging and laboratory studies. Vomiting repeat imaging which only continues to confirm pancreatitis and abnormal gallbladder without signs of active cholecystitis or choledocholithiasis Consult GI. Consult general surgery consideration of elective cholecystectomy once anticoagulation is reversed for his factor V Leiden deficiency, parenteral pain control hydration following LFTs intolerant of even clear liquid ice chips Prolonged QTc: EKG was NSR, rate 87, with QTc of 478. avoid Zofran - Hypertension, hyperlipidemia: Continue to hold his home indapamide while on IVF replacement. - Factor V Leiden deficiency, history of left lower extremity DVT, PE: We will hold Coumadin and restart Lovenox therapy and INR daily - Hypothyroidism: Continue with Synthroid. - GERD: Continue home omeprazole. - Type 2 diabetes: Sep 2018 HbA1c was 6.9. Patient is pursuing lifestyle changes before starting medication. Patient has fatty liver associate with his diabetes he will need nutrition education once he is near his end of his hospital stay - Degenerative spine changes, spinal stenosis: Also noted on overnight CT a/p read. He does have history of lumbar disc degeneration and previous herniated disc repair. Code status: Full code. DVT prophy: Coumadin transition to Lovenox (2) Acute pancreatitis: (3) Prolonged QT interval: (4) Hypertension: (5) Hyperlipidemia: (6) Factor V Leiden mutation: (7) Hypothyroidism: (8) History of pulmonary embolism: (9) History of DVT (deep vein thrombosis): (10) GERD (gastroesophageal reflux disease): (11) Diabetes mellitus: (12) Lumbar canal stenosis: (13) Lumbar arthropathy: Subjective Patient has been persistently tender in the right upper quadrant without much improvement. He notes a radicular type or circumferential type of pain. There is no evidence of shingles. GI medicine was concerned that he could be developing a pancreatic pseudocyst although the pain is in the typical location the patient did not have pancreatic inflammation seen on CT scan on initial pres entation did have elevated lipase. General surgery is considering an elective cholecystectomy early next week once his coagulation for his factor V Leiden is reversed. Patient still requiring significant parenteral opiates and antinausea medication Review of Systems Review of Systems: ROS: well nourished well developed. No double vision blurry vision No problems with speech or swallowing No palpitations, chest pain or pressure No Wheezing or breathing issues Significant right upper quadrant abdominal pain with associated nausea but no vomiting or diarrhea patient is intolerant of even clear liquids by mouth No burning urine urine frequency or changes in color No focal joint pain or muscle pain No skin rashes or oral lesions No unusual bruising or bleeding No focused back pain or numbness or loss of strength No changes in memory or confusion Physical Exam Physical Exam: The patient appeared well nourished and normally developed. Vital signs as documented. Head exam is unremarkable. normocephalic, atraumatic Neck is without jugular venous distension, thyromegaly, or lymphademopathy Lungs are clear to auscultation but decreased at the bases with some splinting Cardiac exam reveals Rhythm is regular. First and second heart sounds normal. Abdominal exam reveals hypoactive bowel sounds, right upper quadrant tenderness guarding no acute abdomen Extremities are nonedematous and both pedal pulses are present Neurologic exam is A&Ox3, no focal deficits, strength is equal bilateral Psychologically seems neither anxious or depressed Skin is warm Dry without bruises or lesions no signs of zoster type rashes Results & Data Vital Signs (Past 12 Hours) Vital Signs Temp Pulse Resp BP Pulse Ox 11/08/18 07:00 37.4 C 71 18 124/[address] abdmen and pelvis with IV contrast Slight progression of the acute pancreatitis. However, no evidence for pancreatic necrosis or peripancreatic loculated fluid collections. No evidence for bowel obstruction.Colonic diverticulosis. A 7 mm nodule within the right lower lobe. This remains stable since a 2014 examination and is therefore considered to be benign. (1) Acute pancreatitis Acute pancreatitis complication: unspecified Pancreatitis type: other Qualified Code(s): K85.80 - Other acute pancreatitis without necrosis or infection
[2018-11-08] MEDS ORDERED: Nursing to Pharmacy Communication ONE (17:55)
[2018-11-08] MEDS: HYDROmorphone INJ 0.5 MG/0.5 ML SYR IV PRN (23:55)
[2018-11-09] MEDS: HYDROmorphone INJ 1 MG/ML SYRINGE IV PRN ×5 (02:50→20:31)
[2018-11-09] MEDS: HYDROmorphone INJ 0.5 MG/0.5 ML SYR IV PRN ×5 (05:37→22:41)
[2018-11-09] MEDS: CIPROFLOXACIN 400 MG/200 ML BAG IV SCH ×2 (05:38→17:44)
[2018-11-09] MEDS: LEVOTHYROXINE SODIUM 200 MCG TABLET PO SCH (05:47)
[2018-11-09] MEDS: LACTATED RINGER'S 1,000 ML IV SCH ×3 (06:24→21:22)
[2018-11-09 07:07] LABS: INR 1.8 (0.9-1.1); Prothrombin Time 17.6 Seconds (9.0-12.0)
[2018-11-09] MEDS: metroNIDAZOLE 500 MG/100 ML BAG IV SCH ×3 (07:37→23:57)
[2018-11-09] MEDS: ENOXAPARIN INJ 30 MG/0.3 ML SYR SQ SCH ×2 (07:43→20:01)
--- NOTE | 2018-11-09 08:02 | Gastroenterology Progress Note ---
Date of Service November 09, 2018 Assessment & Plan (1) Acute pancreatitis: 53 year old male who presents with moderate to severe acute pancreatitis likely secondary to biliary source. - Continue LR - Antiemetics PRN (history prolonged QT) - Analgesia PRN - General surgery following - Appreciate ongoing management per the primary service - CT yesterday showed evidence of inflammation, however, no signs of necrosis as concerned and no pancreatic fluid collections. - Managment of factor V as per Primary team - Okay for shower -Would start clear liquids today, hold if has recurrent pain Subjective Dramatically improved symptomatically, walking around in his room upon my examination AF last 24 hrs, No acute events CT reviewed from yesterday afternoon Review of Systems Review of Systems: All systems reviewed & are unremarkable except as noted in HPI & below Physical Exam Physical Exam: Awake alert oriented x3 walking around the room Normal active soft less tenderness to palpation today his abdominal exam Neurologically intact No edema Lungs are clear Constitutional: WD/WN, vitals as above Cardiovascular: RRR, no murmur, no edema Results & Data Vital Signs (Past 12 Hours) Vital Signs Temp Pulse Resp BP Pulse Ox 11/09/18 07:00 36.9 C 70 18 133/71 96 11/09/18 00:12 37.6 C H 69 20 143/75 H 100 (1) Acute pancreatitis Acute pancreatitis complication: unspecified Pancreatitis type: other Qualified Code(s): K85.80 - Other acute pancreatitis without necrosis or infection
--- NOTE | 2018-11-09 11:56 | Surgery Progress Note ---
Date of Service less abdominal pain, pt is still have some RUQ pain, pt denies nausea, no vomiting, no fever, November 09, 2018 Assessment & Plan (1) Right upper quadrant abdominal pain: 53 year-old male who presented to emergency department today with complaint of severe RUQ abdominal pain that woke him up 48 hours previously at 4 am. Pain has been persistent since morning, Sharp and burning in nature. Leukocytosis of 17K on arrival, 15K today. T. bili and lfts wnl. Lipase elevated at 500 on arrival, 400 today. US showing gallbladder sludge but no stones. No evidence of acute cholecystitis on ultrasound. CT scan showing evidence of acute pancreatitis possible duodenitis. Plan:acute pancreatitis, gallbladder sludge treat pancreatitis first, Hold coumadin for 4 days, start tomorrow, lovenox 30mg SQ q12h during holding coumadin possible to do laparoscopic cholecystectomy on 11/11. D/W the plan, pt agrees with the plan, I answered all questions, repeat labs tomorrow will F/U 11/08/2018 10:31am doing fine, HIDA scan on Saturday, lovenox 30mg SQ q12h, possible do lap coleen on 11/11/2018 11/09/2018 11: 53am, INR 1.8 pt will have laparoscopic cholecystectomy, possible open or cholangiogram on 11/11/2018 D/W benefits, risks and alternatives of the surgery, the risks - infection, bleeding, injury CBD, bowel, RI, DVT, stroke, , pt understood, he agrees with the surgery, I answered all questions, will F/U (2) Acute pancreatitis: (3) Factor V Leiden mutation: On coumadin INR 2.5 today Subjective AF last 24 hrs, No acute events CT reviewed from yesterday afternoon Physical Exam Constitutional: WD/WN, vitals as above well developed and well nourished Neck: trachea midline, no thyromegaly Respiratory: normal respiratory effort, lungs clear to auscultation Cardiovascular: RRR, no murmur, no edema Rate/Rhythm: regular rate and regular rhythm Gastrointestinal (Abdomen): Percussion/Palpation: + abdomen tender and abdomen soft some tenderness at RUQ, no rebound pain, no guarding, BS+ Neurologic: awake Psychiatric: Orientation: alert and oriented x 3 Results & Data Vital Signs (Past 12 Hours) Vital Signs Temp Pulse Resp BP Pulse Ox 11/09/18 07:00 36.9 C 70 18 133/71 96 11/09/18 00:12 37.6 C H 69 20 143/75 H 100 Laboratory Results Abnormal lab results 11/09/18 Range/Units 06:27 PT 17.6 H (9.0-12.0) Seconds INR 1.8 H (0.9-1.1) (1) Acute pancreatitis Acute pancreatitis complication: unspecified Pancreatitis type: other Qualified Code(s): K85.80 - Other acute pancreatitis without necrosis or infection
--- NOTE | 2018-11-09 15:00 | Hospitalist Progress Note ---
Date of Service November 09, 2018 Assessment & Plan (1) Right upper quadrant abdominal pain: 53-year-old male was admitted on 07 Nov 2018 for progressively worsening right upper quadrant pain. Pancreatitis, right upper quadrant pain: Prior history of pancreatitis back in July 2013, Denies EtOH use. Remains significantly tender in the right upper quadrant which is out of proportion to his imaging and laboratory studies. CY abdomen/pelvis repeat imaging which only continues to confirm pancreatitis and abnormal gallbladder with plans to perform surgery this week Consult GI. Consult general surgery consideration of elective cholecystectomy once anticoagulation is reversed for his factor V Leiden deficiency, parenteral pain control hydration following LFTs intolerant of even clear liquid ice chips Prolonged QTc: EKG was NSR, rate 87, with QTc of 478. avoid Zofran - Hypertension, hyperlipidemia: Continue to hold his home indapamide while on IVF replacement. - Factor V Leiden deficiency, history of left lower extremity DVT, PE: We will hold Coumadin and restart Lovenox therapy and INR daily - Hypothyroidism: Continue with Synthroid. - GERD: Continue home omeprazole. - Type 2 diabetes: Sep 2018 HbA1c was 6.9. Patient is pursuing lifestyle changes before starting medication. Patient has fatty liver associate with his diabetes he will need nutrition education once he is near his end of his hospital stay - Degenerative spine changes, spinal stenosis: Also noted on overnight CT a/p read. He does have history of lumbar disc degeneration and previous herniated disc repair. Code status: Full code. DVT prophy: Coumadin transition to Lovenox (2) Acute pancreatitis: (3) Prolonged QT interval: (4) Hypertension: (5) Hyperlipidemia: (6) Factor V Leiden mutation: (7) Hypothyroidism: (8) History of pulmonary embolism: (9) History of DVT (deep vein thrombosis): (10) GERD (gastroesophageal reflux disease): (11) Diabetes mellitus: (12) Lumbar canal stenosis: (13) Lumbar arthropathy: Subjective this pt is doing better, still with some pain, planning for upcoming cholecystectomy next week, will await coagulation reversal Review of Systems Review of Systems: ROS: well nourished well developed. No double vision blurry vision No problems with speech or swallowing No palpitations, chest pain or pressure No Wheezing or breathing issues RUQ abdominal pain resolved nausea and vomiting No burning urine urine frequency or changes in color No focal joint pain or muscle pain No skin rashes or oral lesions No unusual bruising or bleeding No focused back pain or numbness or loss of strength No changes in memory or confusion Physical Exam Physical Exam: The patient appeared well nourished and normally developed. Vital signs as documented. Head exam is unremarkable. normocephalic, atraumatic Neck is without jugular venous distension, thyromegaly, or lymphademopathy Lungs are clear to auscultation and percussion. Cardiac exam reveals Rhythm is regular. First and second heart sounds normal. Abdominal exam reveals continued ruq tenderness, hypoactive bowel sounds, no masses, no organomegaly Extremities are nonedematous and both pedal pulses are present Neurologic exam is A&Ox3, no focal deficits, strength is equal bilateral Psychologically seems neither anxious or depressed Skin is warm Dry without bruises or lesions Results & Data Vital Signs (Past 12 Hours) Vital Signs Temp Pulse Resp BP Pulse Ox 11/09/18 07:00 36.9 C 70 18 133/71 96 (1) Acute pancreatitis Acute pancreatitis complication: unspecified Pancreatitis type: other Qualified Code(s): K85.80 - Other acute pancreatitis without necrosis or infection
[2018-11-10] MEDS: HYDROmorphone INJ 1 MG/ML SYRINGE IV PRN ×6 (01:03→23:50)
[2018-11-10] MEDS: HYDROmorphone INJ 0.5 MG/0.5 ML SYR IV PRN (03:05)
[2018-11-10 04:52] LABS: Basophils # (auto) 0.04 K/uL (0-0.2); Basophils % (auto) 0.4 %; Eosinophils # (auto) 0.49 K/uL (0-0.5); Eosinophils % (auto) 5.2 %; Hematocrit (blood only) 38.9 % (42-52); Hemoglobin 13.7 g/dL (14.0-18.0); Immature Granulocytes # (auto) 0.02 K/uL (0.00-0.02); Immature Granulocytes % (auto) 0.2 %; Lymphocytes % (auto) 18.2 %; Mean Corpuscular Hgb Conc 35.2 g/dL (32-36); Mean Corpuscular Volume 89.4 fL (80-100); Mean Platelet Volume 9.7 fL (7.4-10.4); Monocytes # (auto) 0.77 K/uL (0.11-0.59); Monocytes % (auto) 8.2 %; Neutrophils # (auto) 6.34 K/uL (1.4-6.5); Neutrophils % (auto) 67.8 %; Platelet Count 239 K/uL (130-400); RDW Coefficient of Variation 13.6 % (11.5-14.5); RDW Standard Deviation 44.7 fL (36.4-46.3); Red Blood Count 4.35 M/uL (4.7-6.1); White Blood Count 9.36 K/uL (4.8-10.8)
[2018-11-10 05:06] LABS: INR 1.5 (0.9-1.1); Prothrombin Time 14.7 Seconds (9.0-12.0)
[2018-11-10 05:12] LABS: Albumin Level 2.5 gm/dl (3.4-5.0); Calcium 8.5 mg/dl (8.5-10.1); Creatinine Clr Calc Pharmacy 121.4 ml/min; Est GFR (African American) 108.4; Est GFR (Non-African American) 93.5; Potassium 3.8 mmol/L (3.5-5.1)
[2018-11-10] MEDS: LACTATED RINGER'S 1,000 ML IV SCH ×2 (05:14→16:00)
[2018-11-10 05:15] LABS: Albumin Globulin Ratio 0.6 (0.9-2); Bilirubin,Total 0.6 mg/dl (0.2-1); Total Protein 6.5 gm/dl (6.4-8.2)
[2018-11-10] MEDS: LEVOTHYROXINE SODIUM 200 MCG TABLET PO SCH (05:15)
[2018-11-10] MEDS: CIPROFLOXACIN 400 MG/200 ML BAG IV SCH ×2 (05:15→17:58)
[2018-11-10] MEDS: metroNIDAZOLE 500 MG/100 ML BAG IV SCH ×3 (08:03→23:50)
[2018-11-10] MEDS: ENOXAPARIN INJ 30 MG/0.3 ML SYR SQ SCH ×2 (08:03→20:31)
--- NOTE | 2018-11-10 08:13 | Surgery Progress Note ---
Date of Service November 10, 2018 Assessment & Plan (1) Right upper quadrant abdominal pain: Acute gallstone pancreatitis -vitals stable, afebrile - moderate pain, improving - t. bili , lfts, lipase wnl - HIDA scan ordered for today Plan: Lap coleen tomorrow morning may have clear liquids today after HIDA scan, NPO after midnight continue IV abx, IV pain medication prn, IV Zofran prn nausea SCDs and Lovenox 30 mg SQ BID, hold tomorrow am ambulate continue medical management labs in am including INR Dr. Delong has seen patient, agrees with above. (2) Acute pancreatitis: (3) Factor V Leiden mutation: On coumadin INR 2.5 today Subjective feeling better today but still having pain, RUQ and epigastric no appetite, had shar caitlin yesterday no nausea or vomiting Physical Exam Constitutional: WD/WN, vitals as above no acute distress and not ill appearing Respiratory: normal respiratory effort; no respiratory distress Gastrointestinal (Abdomen): Inspection/Auscultation: abdomen normal to inspection; abdomen not distended Percussion/Palpation: + abdomen tender (RUQ and epigastric), + guarding (mild guarding in RUQ and epigastric, no peritonitis or rigidity) and abdomen soft; abdomen not rigid Skin: no rashes, warm and dry Psychiatric: A+Ox3, euthymic affect Results & Data Vital Signs (Past 12 Hours) Vital Signs Temp Pulse Resp BP Pulse Ox 11/10/18 07:00 36.7 C 57 L 18 130/78 96 11/09/18 22:42 36.9 C 64 18 142/81 H 96 Laboratory Results 11/10/18 11/10/18 11/10/18 Range/Units 04:40 04:40 04:40 WBC 9.36 (4.8-10.8) K/uL RBC 4.35 L (4.7-6.1) M/uL Hgb 13.7 L (14.0-18.0) g/dL Hct 38.9 L (42-52) % MCV 89.4 (80-100) fL MCH 31.5 (25-34) pg MCHC 35.2 (32-36) g/dL RDW Std Deviation 44.7 (36.4-46.3) fL RDW Coeff of Adrian 13.6 (11.5-14.5) % Plt Count 239 (130-400) K/uL MPV 9.7 (7.4-10.4) fL Immature Gran % (Auto) 0.2 % Neut % (Auto) 67.8 % Lymph % (Auto) 18.2 % Metcalfe % (Auto) 8.2 % Eos % (Auto) 5.2 % Baso % (Auto) 0.4 % Immature Gran # (Auto) 0.02 (0.00-0.02) K/uL Neut # (Auto) 6.34 (1.4-6.5) K/uL Lymph # (Auto) 1.70 (1.2-3.4) K/uL Metcalfe # (Auto) 0.77 H (0.11-0.59) K/uL Eos # (Auto) 0.49 (0-0.5) K/uL Baso # (Auto) 0.04 (0-0.2) K/uL PT 14.7 H (9.0-12.0) Seconds INR 1.5 H (0.9-1.1) Sodium 138 (136-145) mmol/L Potassium 3.8 (3.5-5.1) mmol/L Chloride 104 (98-107) mmol/L Carbon Dioxide 27 (21-32) mmol/L Anion Gap 7.0 (3-11) BUN 11 (7-18) mg/dl Creatinine 0.94 (0.6-1.4) mg/dl Est Cr Clr Drug Dosing 121.4 ml/min Est GFR ( Amer) 108.4 Est GFR (Non-Af Amer) 93.5 BUN/Creatinine Ratio 12.0 (10-20) Glucose 95 (70-99) mg/dl Calcium 8.5 (8.5-10.1) mg/dl Total Bilirubin 0.6 (0.2-1) mg/dl AST 9 L (15-37) U/L ALT 16 (12-78) U/L Alkaline Phosphatase 59 (45-117) U/L Total Protein 6.5 (6.4-8.2) gm/dl Albumin 2.5 L (3.4-5.0) gm/dl Globulin 4.0 (2.5-4.0) gm/dl Albumin/Globulin Ratio 0.6 L (0.9-2) (1) Acute pancreatitis Acute pancreatitis complication: unspecified Pancreatitis type: other Glen lified Code(s): K85.80 - Other acute pancreatitis without necrosis or infection
--- NOTE | 2018-11-10 11:38 | Gastroenterology Progress Note ---
Date of Service November 10, 2018 Assessment & Plan (1) Acute pancreatitis: 53 year old male who presents with moderate to severe acute pancreatitis likely secondary to biliary source. Clinically improving, less abd pain, tolerated trial of clears last evening but is NPO for HIDA now. Surgery considering cholecystectomy tomorrow - NPO for HIDA - Can otherwise have clear liquid diet from GI standpoint - Would defer additional dietary advancement until post-cholecystectomy at this point - Continue LR - Antiemetics PRN (history prolonged QT) - Analgesia PRN - General surgery following - Appreciate ongoing management per the primary service - Repeat CT w/o necrosis as concerned and no pancreatic fluid collections. - Management of factor V as per Primary team GI to sign off. Thank you for allowing us to participate in the care of this patient. Please call with any acute changes, questions or concerns. Please see addendum below with additional recommendation from my supervising physician. Supervising Physician Co-Signing Physician Notes I performed a history and physical examination of the patient, including specifically on physical exam - soft, nontender abdomen. I have discussed the patient's management with Kenzie. Please refer to the nurse practitioner's note for the documented findings and plan of care. 53 Male patient admitted with acute pancreatitis due to biliary sudge, clinically improving, planned for cholecystectomy tomorrow. Advance diet as tolerated. Recall GI as needed. Subjective Pt was seen and evaluted, chart reviewed Clinically improving Less abd pain No nausea, vomiting Had clears last night which were tolerated Is NPO now for HIDA Gen surg considering cholecystectomy tomorrow Review of Systems Constitutional: no fever, no chills and no fatigue Respiratory: no cough, no dyspnea and no pain on inspiration Cardiovascular: no chest pain, no radiating jaw, neck or arm pain and no dyspnea on exertion Gastrointestinal: + abdominal pain; no nausea, no hematemesis, no cramping and no change in stools Physical Exam Constitutional: WD/WN, vitals as above Respiratory: normal respiratory effort, lungs clear to auscultation Cardiovascular: RRR, no murmur, no edema Skin: no rashes, warm and dry Psychiatric: Orientation: alert and oriented x 3 Results & Data Vital Signs (Past 12 Hours) Vital Signs Temp Pulse Resp BP Pulse Ox 11/10/18 07:00 36.7 C 57 L 18 130/78 96 (1) Acute pancreatitis Acute pancreatitis complication: unspecified Pancreatitis type: other Qualified Code(s): K85.80 - Other acute pancreatitis without necrosis or infection
[2018-11-10] MEDS ORDERED: LIDOCAINE HCL 2% 2 ML VIAL/AMP(20MG/ML) INFIL ONE (11:59)
[2018-11-10] MEDS ORDERED: PROPOFOL IV EMULSION 10 MG/ML 20 ML VIAL IV ONE (11:59)
[2018-11-10] MEDS ORDERED: SINCALIDE 2.3 MCG in 0.9 % SODIUM CHLORIDE 100 ML IV SCH (13:15)
[2018-11-10] MEDS ORDERED: MoRPHine SULFATE 2 MG/ML CARP ONE (13:31)
--- NOTE | 2018-11-10 14:23 | Nuclear Medicine Report ---
[facility] MEDIC[facility] HEPATOBILIARY SCAN CLINICAL HISTORY: RUQ pain COMPARISON STUDY: CT scan dated 11/08/2018 FINDINGS: Patient was injected with 5.8 mCi of technetium 99m Choletec. Sequential anterior imaging was performed. There is normal passage of activity into small bowel. Image acquisition was stopped at 15 minutes as the patient had to void. The 1 hour the gallbladder was not visualized. The patient was administered 2 mg of intravenous morphine. Imaging was continued. There was bile reflux into the stomach. The gall bladder was visualized on the delayed images. Given the administration of morphine in the delayed vis ualization of the gallbladder, and ejection fraction study could not be performed. IMPRESSION: 1. No evidence of cystic duct obstruction. No evidence of acute cholecystitis. 2. Delayed visualization of the gallbladder. This can be seen in patients with generalized illness, a s well as in "chronic cholecystitis" Electronically signed by: Selvin Blum M.D. 11/10/2018 2:22 PM
--- NOTE | 2018-11-10 15:54 | Anesthesiology Consultation ---
Date of Service November 10, 2018 Assessment & Plan (1) Encounter for pre-operative examination: Chart Review Chart Review: Acceptable Risk for Surgery and Patient NOT seen in Pre Admission Testing Proposed Anesthesia Risk / Benefits Reviewed With: PT / POA / Parent / Guardian, Accepts Plan and Informed Consent Obtained History Surgery Operation Date: 11/11/18 10:55 Proposed Procedures p Laparoscopic Cholecystectomy - Osvaldo Delong MD Height/Weight Height: 6 ft Weight: 114.4 kg Allergies Allergy/AdvReac Type Severity Reaction Status Date / Time No Known Allergies Allergy Unknown Verified 11/07/18 01:11 Medications Home Medications Medication Instructions Recorded Confirmed Last Taken indapamide 1.25 mg PO QAM 11/07/18 11/07/18 Unknown levothyroxine 200 mcg PO DAILY 11/07/18 11/07/18 Unknown omeprazole 20 mg PO DAILY 11/07/18 11/07/18 Unknown warfarin 7.5 mg PO DAILY 11/07/18 11/07/18 Unknown Active Medications Generic Name Dose Route Start Last Admin Trade Name Freq PRN Reason Stop Dose Admin Acetaminophen 650 mg 11/07/18 05:25 11/08/18 16:52 Tylenol PO 12/07/18 05:24 650 mg Q4H PRN Administration pain/fever Enoxaparin Sodium 30 mg 11/08/18 13:00 11/10/18 08:03 Lovenox SQ 12/08/18 12:59 30 mg Q12 ASHLEY Administration Lactated Ringer's 1,000 mls @ 125 mls/hr 11/07/18 05:25 11/10/18 14:27 Lr IV 12/07/18 05:24 125 mls/hr .Q8H ASHLEY Infusion Promethazine HCl 12.5 mg/ 50.5 mls @ 202 mls/hr 11/07/18 05:25 11/08/18 10:09 Sodium Chloride IV 12/07/18 05:24 Infused Q6H PRN Infusion Nausea Metronidazole 500 mg in 100 mls @ 100 mls/hr 11/07/18 16:00 11/10/18 09:07 Flagyl IV 11/17/18 15:59 Infused Q8H ASHLEY Infusion Ciprofloxacin 400 mg in 200 mls @ 100 mls/hr 11/07/18 18:00 11/10/18 07:57 Cipro IV 11/17/18 17:59 Infused Q12H ASHLEY Infusion Ioversol 93 ml 11/08/18 12:03 11/08/18 12:03 Optiray 320 100ml IV 11/12/18 12:02 93 ml ONCE PRN Administration Interaction Checking Levothyroxine Sodium 200 mcg 11/07/18 06:30 11/10/18 05:15 Synthroid PO 12/07/18 06:29 200 mcg DAILYBB ASHLEY Administration Past Medical History Medical History Lumbar canal stenosis Diabetes mellitus GERD (gastroesophageal reflux disease) History of DVT (deep vein thrombosis) Factor V Leiden mutation Hyperlipidemia Hypertension Prolonged QT interval Acute pancreatitis (Acute) Hypothyroidism History of pulmonary embolism Pancreatitis (Acute 07/28/13) Factor V Leiden Obesity (BMI 30.0-34.9) Exercise / Class Metabolic Activity II 4-5 Yardwork/Stairs/Walk up hill Negative for chest pain or shortness of breath. Past Surgical History Surgical History History of repair of right rotator cuff History of umbilical hernia repair Previous back surgery Past Anesthesia History No Hx of Anesthesia Complications History of PONV No Hx of PONV and Hx of Motion Sickness Social History Smoking Status: Light tobacco smoker tobacco type: cigars Smoking cigarettes per day: once a year Do You Dip or Chew Tobacco: No Hx Alcohol Use: No Hx Substance Use: No Review of Systems Patient denies active symptoms of GERD. Physical Exam Vital Signs Last Vital Signs Temp 36.4 C L 11/10/18 15:17 Pulse 57 L 11/10/18 07:00 Resp 18 11/10/18 15:17 BP 128/81 11/10/18 15:17 Pulse Ox 97 11/10/18 15:17 Constitutional + obese ENMT Mouth: no TMJ abnormality and oral opening not small Thyromental Distance: > or= 3.5 Finger Breadths Mallampati Class: III Neck normal visual inspection, + short neck, + thick neck and + facial hair; neck extension not limited Respiratory normal respiratory effort Auscultation: lungs clear to auscultation bilaterally Cardiovascular Rate/Rhythm: regular rate and regular rhythm Heart Sounds: no murmur Neurologic moves all extremities Motor/Sensory: no sensory deficit Psychiatric Orientation: alert and oriented x 3 Testing Laboratory Results 11/10/18 04:40 11/10/18 04:40 11/10/18 04:40 PT 14.7 H INR 1.5 H Electrocardiogram Date: 11/06/18 Findings: + NSR @ (87)
--- NOTE | 2018-11-10 20:48 | Hospitalist Progress Note ---
Date of Service November 10, 2018 Assessment & Plan (1) Acute gallstone pancreatitis: resolved. most recent lipase wnl. clinical picture most c/w sludge or gallstones causing the pancreatitis. to OR tomorrow for lap coleen. NPO after MN. continue IVF, IV cipro/flagyl in the event he has acute cholecystitis. Present on Admission?: Yes (2) Right upper quadrant abdominal pain: may have acute cholecystitis in setting of his recent acute pancreatitis. HIDA scan without cystic duct obstruction but did indeed show findings c/w chronic cholecystitis at minimum. LFTs remain acceptable. cont dilaudid PRN. to OR in the AM for lap coleen. cont IV cipro/flagyl. Present on Admission?: Yes (3) Hypothyroidism: TSH compensated cont synthroid Present on Admission?: Yes (4) Hypertension: BPs mainly acceptable Present on Admission?: Yes (5) Hyperlipidemia: (6) Factor V Leiden mutation: noted resume coumadin post-op would bridge with lovenox or heparin as his perioperative VTE risk is much higher than most individuals. (7) History of DVT (deep vein thrombosis): noted coumadin on hold for lap coleen tomorrow (8) GERD (gastroesophageal reflux disease): post-op would place back on PPI or H2 [place] (9) Diabetes mellitus: a1c 6.9% currently diet controlled recommend spout positioner and DM education consults prior to d/c hopefully he can diet control or could consider metformin Subjective patient with ongoing RUQ abdominal pain and mild nausea at times; no vomiting. requiring frequent dilaudid IV. passing flatus; no stool. no dyspnea or chest pain. low-grade fever overnight. Review of Systems Constitutional: no chills and no anorexia Respiratory: no cough and no dyspnea Cardiovascular: no chest pain Gastrointestinal: + abdominal pain; no vomiting Physical Exam Constitutional: well developed, well nourished and + obese; no acute distress and not ill appearing Eyes: + anicteric sclerae ENMT: external ear and nose normal, oropharynx normal Respiratory: normal respiratory effort, lungs clear to auscultation Cardiovascular: RRR, no murmur, no edema Heart Sounds: normal S1 and normal S2 Vessels: posterior tibial pulses present and dorsalis pedis pulses present; no JVD Gastrointestinal (Abdomen): Inspection/Auscultation: normal bowel sounds Percussion/Palpation: + abdomen tender (RUQ) and abdomen soft; no guarding, abdomen not rigid and no hepatosplenomegaly Skin: no rashes, warm and dry Psychiatric: A+Ox3, euthymic affect Results & Data Vital Signs (Past 12 Hours) Vital Signs Temp Resp BP Pulse Ox 11/10/18 15:17 36.4 C L 18 128/81 97 Laboratory Results HIDA scan with reduced function c/w chronic cholecystitis (1) Hypothyroidism Hypothyroidism type: acquired Qualified Code(s): E03.9 - Hypothyroidism, unspecified (2) Hypertension Hypertension type: essential hypertension Qualified Code(s): I10 - Essential (primary) hypertension (3) Hyperlipidemia Hyperlipidemia type: mixed hyperlipidemia Qualified Code(s): E78.2 - Mixed hyperlipidemia (4) GERD (gastroesophageal reflux disease) Esophagitis presence: esophagitis presence not specified Qualified Code(s): K21.9 - Gastro-esophageal reflux disease without esophagitis (5) Diabetes mellitus Diabetes mellitus type: type 2 Diabetes mellitus intermediate accountant insulin use: without intermediate accountant use Diabetes mellitus complication status: without complication Qualified Code(s): E11.9 - Type 2 diabetes mellitus without complications
[2018-11-11] MEDS: LACTATED RINGER'S 1,000 ML IV SCH ×4 (01:06→23:44)
[2018-11-11] MEDS: HYDROmorphone INJ 1 MG/ML SYRINGE IV PRN ×4 (02:44→19:34)
[2018-11-11 04:13] LABS: Basophils # (auto) 0.07 K/uL (0-0.2); Basophils % (auto) 0.8 %; Eosinophils # (auto) 0.52 K/uL (0-0.5); Eosinophils % (auto) 5.6 %; Hematocrit (blood only) 38.6 % (42-52); Hemoglobin 13.7 g/dL (14.0-18.0); Immature Granulocytes # (auto) 0.02 K/uL (0.00-0.02); Immature Granulocytes % (auto) 0.2 %; Lymphocytes # (auto) 2.18 K/uL (1.2-3.4); Lymphocytes % (auto) 23.6 %; Mean Corpuscular Hgb Conc 35.5 g/dL (32-36); Mean Corpuscular Volume 88.9 fL (80-100); Mean Platelet Volume 9.4 fL (7.4-10.4); Monocytes # (auto) 0.73 K/uL (0.11-0.59); Monocytes % (auto) 7.9 %; Neutrophils # (auto) 5.71 K/uL (1.4-6.5); Neutrophils % (auto) 61.9 %; Platelet Count 255 K/uL (130-400); RDW Coefficient of Variation 13.4 % (11.5-14.5); RDW Standard Deviation 43.8 fL (36.4-46.3); Red Blood Count 4.34 M/uL (4.7-6.1); White Blood Count 9.23 K/uL (4.8-10.8)
[2018-11-11 04:25] LABS: INR 1.4 (0.9-1.1)
[2018-11-11 04:34] LABS: Albumin Level 2.6 gm/dl (3.4-5.0); BUN Creatinine Ratio 13.3 (10-20); Calcium 8.4 mg/dl (8.5-10.1); Creatinine Clr Calc Pharmacy 129.7 ml/min; Est GFR (African American) 115.3; Est GFR (Non-African American) 99.5; Potassium 3.7 mmol/L (3.5-5.1)
[2018-11-11 04:37] LABS: Albumin Globulin Ratio 0.7 (0.9-2); Bilirubin,Total 0.5 mg/dl (0.2-1); Globulin 3.8 gm/dl (2.5-4.0); Total Protein 6.4 gm/dl (6.4-8.2)
[2018-11-11] MEDS: LEVOTHYROXINE SODIUM 200 MCG TABLET PO SCH (04:50)
[2018-11-11] MEDS: CIPROFLOXACIN 400 MG/200 ML BAG IV SCH ×2 (05:31→17:22)
[2018-11-11] MEDS: metroNIDAZOLE 500 MG/100 ML BAG IV SCH ×3 (07:37→23:42)
[2018-11-11] MEDS ORDERED: GLYCOPYRROLATE 0.2 MG/ML VIAL ONE (10:39)
[2018-11-11] MEDS ORDERED: DEXAMETHASONE SOD INJ 4 MG/ML VIAL ONE (10:39)
[2018-11-11] MEDS ORDERED: PROPOFOL IV EMULSION 10 MG/ML 20 ML VIAL IV ONE (10:39)
[2018-11-11] MEDS ORDERED: LIDOCAINE HCL 2% 2 ML VIAL/AMP(20MG/ML) INFIL ONE (10:39)
[2018-11-11] MEDS ORDERED: NEOSTIGMINE METHYLSULFATE 5 MG/5 ML SYR ONE (10:39)
[2018-11-11] MEDS ORDERED: SUCCINYLCHOLINE CHLORIDE 20 MG/ML 10 ML VIAL ONE (10:39)
[2018-11-11] MEDS ORDERED: ONDANSETRON INJ 2 MG/ML 2 ML VIAL ONE (10:39)
[2018-11-11] MEDS ORDERED: ePHEDrine sulfate 50 MG/ML AMP ONE (10:39)
[2018-11-11] MEDS ORDERED: MIDAZOLAM HCL 1 MG/ML 2ML VIAL ONE (10:39)
[2018-11-11] MEDS ORDERED: PHENYLEPHRINE HCL 10 MG/ML VIAL ONE (10:39)
[2018-11-11] MEDS ORDERED: fentaNYL citrate 100 MCG/2 ML VIAL ONE ×2 (10:40)
[2018-11-11] MEDS ORDERED: HYDROmorphone INJ 2 MG/ML SYR/VIAL IV PRN (11:06)
[2018-11-11] MEDS ORDERED: ONDANSETRON INJ 2 MG/ML 2 ML VIAL IV PRN (11:06)
[2018-11-11] MEDS ORDERED: ePHEDrine sulfate 50 MG/ML AMP IV PRN (11:06)
[2018-11-11] MEDS ORDERED: ATROPINE SULFATE 0.1 MG/ML 10ML SYR IV PRN (11:06)
[2018-11-11] MEDS ORDERED: DEXAMETHASONE SOD INJ 4 MG/ML VIAL IV PRN (11:06)
[2018-11-11] MEDS ORDERED: LIDOCAINE HCL 1% 20 ML VIAL ONE (11:06)
[2018-11-11] MEDS ORDERED: BACITRACIN OINT 15 GM TUBE ONE (11:06)
[2018-11-11] MEDS ORDERED: BUPIVACAINE 0.5 % 5 MG/1 ML MPF 30ML VIAL ONE (11:06)
[2018-11-11] MEDS ORDERED: CEFAZOLIN 2,000 MG/15 ML IV PUSH IV ONE (11:09)
[2018-11-11] MEDS ORDERED: CEFAZOLIN 2000MG 2,000 MG/15 ML SYR IV ONE (11:10)
--- NOTE | 2018-11-11 11:10 | History & Physical Bridge Note ---
Date of Service November 11, 2018 History & Physical Bridge Note I have examined the patient, reviewed the History & Physical and in the interval since the performance of the History & Physical I have noted the following changes of clinical significance: no changes noted
[2018-11-11] MEDS ORDERED: ACETAMINOPHEN 1000 MG/100 ML IV IV ONE (11:11)
[2018-11-11] MEDS ORDERED: HYDROmorphone INJ 2 MG/ML SYR/VIAL ONE (11:54)
--- NOTE | 2018-11-11 12:46 | Post Operative Brief Note ---
Immediate Post Op Note v1 Date of Surgery November 11, 2018 Pre & Post Diagnosis Operation Date: 11/11/18 10:55 Pre-Op Diagnosis: acute cholecystitis Post-Op Diagnosis: acute cholecystitis Procedure Operation Date: 11/11/18 10:55 Actual Procedures p Laparoscopic Cholecystectomy(Not Applicable) - Osvaldo Delong MD Surgeon Osvaldo Delong MD Dial Painter neurosurgical physician assistant Estimated Blood Loss 20 Findings Consistent with Post-Op Diagnosis acute cholecystitis Fluids 1000ml Specimens gallbladder Anesthesia Type General Complications none Disposition Accompanied Patient To Recovery: Yes Disposition: Recovery Room Overlapping Procedure I was immediately available: during the entire case.
[2018-11-11] MEDS: fentaNYL citrate 100 MCG/2 ML VIAL IV PRN ×4 (13:19→13:35)
--- NOTE | 2018-11-11 13:49 | Anesthesiology Progress Note ---
Date of Service November 11, 2018 Anesthesia Post Procedure Vital Signs Vital Signs: Temp Pulse Pulse Resp BP BP Pulse Ox 11/11/18 13:35 49 L 19 148/85 H 96 11/11/18 13:25 491 H 14 136/92 100 11/11/18 13:15 50 L 13 147/82 H 100 11/11/18 13:05 53 L 21 148/78 H 100 11/11/18 12:59 36.2 C L 56 L 16 142/45 H 100 11/11/18 10:36 36.6 C 56 L 20 149/87 H 99 11/11/18 07:00 36.5 C 67 20 146/89 H 96 11/10/18 23:00 36.7 C 62 20 150/81 H 99 11/10/18 15:17 36.4 C L 18 128/81 97 Pain Intensity Abdomen: Pain Intensity: 10 Right Upper Abdomen: Pain Intensity: 5 Transfer of Care Handoff Completed per policy Notes Mental Status: alert / awake / arousable and participated in evaluation Patient Amnestic to Procedure: Yes Nausea / Vomiting: adequately controlled Pain: adequately controlled Airway Patency, RR, SpO2: stable & adequate BP & HR: stable & adequate Hydration State: stable & adequate Anesthetic Complications: no major complications apparent
[2018-11-11] MEDS ORDERED: OXYCODONE/ACETAMINOPHEN 5mg/325mg TAB PO PRN (16:11)
[2018-11-11] MEDS ORDERED: COUGH DROP (SUGAR FREE) LOZ 24 LOZ/1 BOX BUCCAL STA (20:31)
--- NOTE | 2018-11-11 21:19 | Operative Report ---
DATE OF OPERATION: 11/11/2018 PREOPERATIVE DIAGNOSIS: Acute cholecystitis. POSTOPERATIVE DIAGNOSIS: Acute cholecystitis. PROCEDURE: Laparoscopic cholecystectomy. SURGEON: Osvaldo Delong MD. ANESTHESIA: General. ESTIMATED BLOOD LOSS: About 20 mL. FINDINGS: Acute cholecystitis. COMPLICATIONS: None. INDICATIONS FOR THE PROCEDURE: This is a 53-year-old gentleman who was admitted to hospital for acute pancreatitis with acute cholecystitis and we recommended to do laparoscopic cholecystectomy, possible open, possible cholangiogram. I did talk to the patient about the benefit and risk, alternate procedure. I indicated the risks may include but not limited to such as bleeding, infection, injury to common bile duct, bile leak, injury to bowel, may need ERCP, myocardial infarction, DVT, stroke, even . The patient understands that he signed informed consent and I answered all questions. DETAILS OF PROCEDURE: We brought the patient to the OR, put the patient in the supine position. The patient received SCD on bilateral legs to prevent DVT. Also, patient received 2 grams Ancef IV for prophylactic antibiotic. The patient received general anesthesia without difficulty. The abdomen was prepped and draped in routine sterile fashion. After time out, I injected local anesthesia just above umbilical by using 1% lidocaine mixed with 0.5% Marcaine. Then I made a small incision just above umbilicus, opened fascia and opened peritoneum and under direct vision, put a Srinath trocar in, connected to CO2 to create pneumoperitoneum. Flow rate is 6 liter per minute. Pressure not more than 14 mmHg. Once we got a nice pneumoperitoneum, we put a camera in, looked around the abdomen, showed normal finding on the liver. However, the gallbladder showing significant distention, gallbladder wall thickening, edema, confirmed diagnosis of acute cholecystitis. Then, we put another 5 mm trocar on the right upper quadrant under direct vision. Once all trocars were in, we put a grasper to hold the base of the gallbladder, put in direction to the diaphragm, another grasper to hold the pouch of the gallbladder, put the latter to explore the triangle of [place]. The cystic duct was identified and mobilized. Then I put two 5 mm metal clips on the proximal cystic duct and one on the distal cystic duct. Then I used a scissor for transection of cystic duct. Rechecked, no bile leak and no active bleeding. The cystic artery was identified and mobilized. I put two 5 mm metal clip on the proximal cystic artery and one on the distal cystic artery. Then I used the scissor for transection of cystic duct artery. Rechecked, no active bleeding. Then we used a Bovie to take down the gallbladder from the liver bed. Rechecked, no active bleeding, no bile leak from the liver bed. Then we removed the gallbladder through the catch bag and then we reinserted Srinath trocar in, connected to CO2 to create pneumoperitoneum again looked around the abdomen, no active bleeding, no bile leak from the liver bed. Then we removed all trocars under direct vision. No active bleeding from the trocar site. Pneumoperitoneum was released. Then I closed the umbilical incision on fascial layer by using 0 Vicryl [id number] x2, closed subcutaneous layer by using 2-0 Vicryl continuous running, closed skin by using 4-0 Vicryl continuous running, closed another three 5 mm trocar site to skin only by using 4-0 Vicryl. We put the dressing on. The patient tolerated the procedure well. All instruments, needles and sponge count were correct x2 at the end of case. The patient transferred to recovery room in stable condition. After the procedure, I did talk to the patient's about the OR finding and procedure we did. She understands. I attest to the content of the Intraoperative Record and any orders documented therein. Any exceptions are noted below. BLAYNE
[2018-11-11] MEDS: OXYCODONE/ACETAMINOPHEN 5mg/325mg TAB PO PRN (22:13)
[2018-11-11] MEDS: ENOXAPARIN INJ 30 MG/0.3 ML SYR SQ SCH (22:25)
--- NOTE | 2018-11-11 22:27 | Hospitalist Progress Note ---
Date of Service November 11, 2018 Assessment & Plan (1) Acute gallstone pancreatitis: resolved. clinical picture most c/w sludge or gallstones causing the pancreatitis. s/p lap coleen today. diet management per surgery. cont IV cipro/flagyl for now but shouldn't need abx at d/c. (2) Right upper quadrant abdominal pain: s/p lap coleen today. defer management to surgery. (3) Hypothyroidism: TSH compensated cont synthroid (4) Hypertension: BPs mainly acceptable (5) Hyperlipidemia: (6) Factor V Leiden mutation: noted resume coumadin post-op would bridge with lovenox as his perioperative VTE risk is much higher than most individuals. (7) History of DVT (deep vein thrombosis): noted coumadin on hold for lap coleen today resume when ok w/ gen surg (8) GERD (gastroesophageal reflux disease): resume PPI (9) Diabetes mellitus: a1c 6.9% currently diet controlled DM educator consult home tomorrow? Subjective saw the patient post-op from lap coleen RUQ pain RESOLVED "when can I go home??" he feels good tolerated clears post-op no nausea Review of Systems Constitutional: no fever and no chills Respiratory: no dyspnea Cardiovascular: no chest pain Physical Exam Constitutional: well developed, well nourished and + obese; no acute distress and not ill appearing Eyes: + anicteric sclerae ENMT: external ear and nose normal, oropharynx normal Respiratory: normal respiratory effort, lungs clear to auscultation Cardiovascular: RRR, no murmur, no edema Heart Sounds: normal S1 and normal S2 Vessels: posterior tibial pulses present and dorsalis pedis pulses present; no JVD Gastrointestinal (Abdomen): Inspection/Auscultation: normal bowel sounds Percussion/Palpation: abdomen soft; no guarding, abdomen not rigid and no hepatosplenomegaly Skin: no rashes, warm and dry incisions clean on abdominal wall Psychiatric: A+Ox3, euthymic affect Results & Data Vital Signs (Past 12 Hours) Vital Signs Temp Pulse Pulse Resp BP BP Pulse Ox 11/11/18 18:13 36.7 C 76 18 136/82 94 11/11/18 17:13 36.7 C 72 18 142/88 H 96 11/11/18 15:13 36.6 C 64 18 126/74 94 11/11/18 15:05 36.4 C L 66 18 125/82 95 11/11/18 14:43 36.8 C 69 18 134/77 97 11/11/18 14:28 36.5 C 56 L 18 145/84 H 99 11/11/18 13:55 36.8 C 54 L 16 150/86 H 99 11/11/18 13:45 36.8 C 50 L 16 147/91 H 98 11/11/18 13:35 49 L 19 148/85 H 96 11/11/18 13:25 491 H 14 136/92 100 11/11/18 13:15 50 L 13 147/82 H 100 11/11/18 13:05 53 L 21 148/78 H 100 11/11/18 12:59 36.2 C L 56 L 16 142/45 H 100 11/11/18 10:36 36.6 C 56 L 20 149/87 H 99 Laboratory Results Laboratory Results - last 24 hr 11/11/18 11/11/18 11/11/18 03:55 03:55 03:55 WBC 9.23 RBC 4.34 L Hgb 13.7 L Hct 38.6 L MCV 88.9 MCH 31.6 MCHC 35.5 RDW Std Deviation 43.8 RDW Coeff of [place] 13.4 Plt Count 255 MPV 9.4 Immature Gran % (Auto) 0.2 Neut % (Auto) 61.9 Lymph % (Auto) 23.6 [place] % (Auto) 7.9 Eos % (Auto) 5.6 Baso % (Auto) 0.8 Immature Gran # (Auto) 0.02 Neut # (Auto) 5.71 Lymph # (Auto) 2.18 [place] # (Auto) 0.73 H Eos # (Auto) 0.52 H Baso # (Auto) 0.07 PT 14.0 H INR 1.4 H Sodium 137 Potassium 3.7 Chloride 106 Carbon Dioxide 27 Anion Gap 4.0 BUN 12 Creatinine 0.88 Est Cr Clr Drug Dosing 129.7 Est GFR ( Amer) 115.3 Est GFR (Non-Af Amer) 99.5 BUN/Creatinine Ratio 13.3 Glucose 101 H POC Glucose Calcium 8.4 L Total Bilirubin 0.5 AST 15 ALT 19 Alkaline Phosphatase 65 Total Protein 6.4 Albumin 2.6 L Globulin 3.8 Albumin/Globulin Ratio 0.7 L 11/11/18 13:07 WBC RBC Hgb Hct MCV MCH MCHC RDW Std Deviation RDW Coeff of Adrian Plt Count MPV Immature Gran % (Auto) Neut % (Auto) Lymph % (Auto) [place] % (Auto) Eos % (Auto) Baso % (Auto) Immature Gran # (Auto) Neut # (Auto) Lymph # (Auto) [place] # (Auto) Eos # (Auto) Baso # (Auto) PT INR Sodium Potassium Chloride Carbon Dioxide Anion Gap BUN Creatinine Est Cr Clr Drug Dosing Est GFR ( Amer) Est GFR (Non-Af Amer) BUN/Creatinine Ratio Glucose POC Glucose 119 H Calcium Total Bilirubin AST ALT Alkaline Phosphatase Total Protein Albumin Globulin Albumin/Globulin Ratio (1) Diabetes mellitus Diabetes mellitus complication status: without complication Diabetes mellitus mcfp insulin use: without watermelon inspector use Diabetes mellitus type: type 2 Qualified Code(s): E11.9 - Type 2 diabetes mellitus without complications (2) Hyperlipidemia Hyperlipidemia type: mixed hyperlipidemia Qualified Code(s): E78.2 - Mixed hyperlipidemia (3) Hypothyroidism Hypothyroidism type: acquired Qualified Code(s): E03.9 - Hypothyroidism, unspecified (4) GERD (gastroesophageal reflux disease) Esophagitis presence: esophagitis presence not specified Qualified Code(s): K21.9 - Gastro-esophageal reflux disease without esophagitis (5) Hypertension Hypertension type: essential hypertension Qualified Code(s): I10 - Essential (primary) hypertension
[2018-11-12] MEDS: CIPROFLOXACIN 400 MG/200 ML BAG IV SCH (05:45)
[2018-11-12] MEDS: LEVOTHYROXINE SODIUM 200 MCG TABLET PO SCH (05:48)
[2018-11-12] MEDS: OXYCODONE/ACETAMINOPHEN 5mg/325mg TAB PO PRN (06:07)
[2018-11-12 07:40] VITALS: PULSE 51; TEMP 97.9; O2SAT 99
[2018-11-12 07:51] LABS: Basophils # (auto) 0.05 K/uL (0-0.2); Basophils % (auto) 0.5 %; Eosinophils # (auto) 0.29 K/uL (0-0.5); Eosinophils % (auto) 2.8 %; Hemoglobin 14.3 g/dL (14.0-18.0); Immature Granulocytes # (auto) 0.05 K/uL (0.00-0.02); Immature Granulocytes % (auto) 0.5 %; Lymphocytes # (auto) 2.14 K/uL (1.2-3.4); Mean Corpuscular Hgb Conc 34.9 g/dL (32-36); Mean Corpuscular Volume 89.9 fL (80-100); Mean Platelet Volume 9.5 fL (7.4-10.4); Monocytes # (auto) 0.71 K/uL (0.11-0.59); Neutrophils # (auto) 6.95 K/uL (1.4-6.5); Neutrophils % (auto) 68.2 %; Platelet Count 304 K/uL (130-400); RDW Coefficient of Variation 13.6 % (11.5-14.5); RDW Standard Deviation 44.4 fL (36.4-46.3); Red Blood Count 4.56 M/uL (4.7-6.1); White Blood Count 10.19 K/uL (4.8-10.8)
[2018-11-12 08:06] LABS: Albumin Level 2.9 gm/dl (3.4-5.0); BUN Creatinine Ratio 7.7 (10-20); Calcium 8.9 mg/dl (8.5-10.1); Creatinine Clr Calc Pharmacy 102.8 ml/min; Est GFR (African American) 88.6; Est GFR (Non-African American) 76.5; Potassium 3.7 mmol/L (3.5-5.1)
[2018-11-12 08:09] LABS: Albumin Globulin Ratio 0.7 (0.9-2); Bilirubin,Total 0.5 mg/dl (0.2-1); Globulin 4.1 gm/dl (2.5-4.0)
[2018-11-12 08:49] LABS: INR 1.4 (0.9-1.1)
[2018-11-12] MEDS: metroNIDAZOLE 500 MG/100 ML BAG IV SCH (08:51)
[2018-11-12] MEDS: ENOXAPARIN INJ 30 MG/0.3 ML SYR SQ SCH (08:51)
[2018-11-12] MEDS ORDERED: INDAPAMIDE 1.25 MG TAB PO SCH (09:00)
--- NOTE | 2018-11-12 09:10 | Anesthesiology Progress Note ---
Date of Service November 12, 2018 Anesthesia Post Procedure Vital Signs Vital Signs: Temp Pulse Pulse Resp BP BP Pulse Ox 11/12/18 07:39 36.6 C 51 L 20 146/89 H 99 11/11/18 23:14 36.4 C L 63 18 130/80 95 11/11/18 18:13 36.7 C 76 18 136/82 94 11/11/18 17:13 36.7 C 72 18 142/88 H 96 11/11/18 15:13 36.6 C 64 18 126/74 94 11/11/18 15:05 36.4 C L 66 18 125/82 95 11/11/18 14:43 36.8 C 69 18 134/77 97 11/11/18 14:28 36.5 C 56 L 18 145/84 H 99 11/11/18 13:55 36.8 C 54 L 16 150/86 H 99 11/11/18 13:45 36.8 C 50 L 16 147/91 H 98 11/11/18 13:35 49 L 19 148/85 H 96 11/11/18 13:25 491 H 14 136/92 100 11/11/18 13:15 50 L 13 147/82 H 100 11/11/18 13:05 53 L 21 148/78 H 100 11/11/18 12:59 36.2 C L 56 L 16 142/45 H 100 11/11/18 10:36 36.6 C 56 L 20 149/87 H 99 Pain Intensity Abdomen: Pain Intensity: 10 Right Upper Abdomen: Pain Intensity: 6 Notes Mental Status: alert / awake / arousable and participated in evaluation Patient Amnestic to Procedure: Yes Nausea / Vomiting: adequately controlled Pain: adequately controlled Airway Patency, RR, SpO2: stable & adequate BP & HR: stable & adequate Hydration State: stable & adequate Anesthetic Complications: no major complications apparent and Pt Satisfied with anesthetic care
[2018-11-12] MEDS ORDERED: PANTOprazole 40 MG TAB PO STA (10:16)
[2018-11-12] MEDS ORDERED: ENOXAPARIN INJ 120 MG/0.8 ML SYR SQ SCH (13:15)
[2018-11-12 13:46] VITALS: BP 130/80
--- NOTE | 2018-11-12 15:27 | Surgery Progress Note ---
Date of Service November 12, 2018 Assessment & Plan (1) Right upper quadrant abdominal pain: POD # 1 s/p laparoscopic cholecystectomy -vitals stable, afebrile - post op pain controlled - tolerating diet, no n/v - leukocytosis resolved INR today 1.4 Plan: Okay from surgical standpoint for discharge discharge instructions reviewed Rx for Percocet prn pain f/u surgical office in 1-2 weeks, work note given today off until November 24. Dr. Delong has seen and examined pt, agrees with above (2) Acute pancreatitis: (3) Factor V Leiden mutation: On Coumadin INR 1.4 today Plan: Will need bridging of Lovenox at home until INR therapeutic. Should restart Coumadin today. plan as above Subjective Feeling good today post op pain minimal , controlled tolerated regular diet, no n/v Physical Exam Constitutional: WD/WN, vitals as above no acute distress and not ill appearing Respiratory: normal respiratory effort; no respiratory distress Gastrointestinal (Abdomen): Percussion/Palpation: + abdomen tender (at incision sites, appropriate post op) and abdomen soft; no guarding and abdomen not rigid Skin: no rashes, warm and dry + incision (covered , clean and dry) Psychiatric: A+Ox3, euthymic affect Results & Data Vital Signs (Past 12 Hours) Vital Signs Temp Pulse Resp BP BP Pulse Ox 11/12/18 13:45 36.6 C 51 L 20 146/89 H 130/80 99 11/12/18 07:39 36.6 C 51 L 20 146/89 H 99 Laboratory Results 11/12/18 11/12/18 11/12/18 Range/Units 08:22 07:38 07:38 WBC 10.19 (4.8-10.8) K/uL RBC 4.56 L (4.7-6.1) M/uL Hgb 14.3 (14.0-18.0) g/dL Hct 41.0 L (42-52) % MCV 89.9 (80-100) fL MCH 31.4 (25-34) pg MCHC 34.9 (32-36) g/dL RDW Std Deviation 44.4 (36.4-46.3) fL RDW Coeff of Adrian 13.6 (11.5-14.5) % Plt Count 304 (130-400) K/uL MPV 9.5 (7.4-10.4) fL Immature Gran % (Auto) 0.5 % Neut % (Auto) 68.2 % Lymph % (Auto) 21.0 % [place] % (Auto) 7.0 % Eos % (Auto) 2.8 % Baso % (Auto) 0.5 % Immature Gran # (Auto) 0.05 H (0.00-0.02) K/uL Neut # (Auto) 6.95 H (1.4-6.5) K/uL Lymph # (Auto) 2.14 (1.2-3.4) K/uL [place] # (Auto) 0.71 H (0.11-0.59) K/uL Eos # (Auto) 0.29 (0-0.5) K/uL Baso # (Auto) 0.05 (0-0.2) K/uL PT 14.0 H (9.0-12.0) Seconds INR 1.4 H (0.9-1.1) Sodium 139 (136-145) mmol/L Potassium 3.7 (3.5-5.1) mmol/L Chloride 105 (98-107) mmol/L Carbon Dioxide 28 (21-32) mmol/L Anion Gap 6.0 (3-11) BUN 9 (7-18) mg/dl Creatinine 1.11 (0.6-1.4) mg/dl Est Cr Clr Drug Dosing 102.8 ml/min Est GFR ( Amer) 88.6 Est GFR (Non-Af Amer) 76.5 BUN/Creatinine Ratio 7.7 L (10-20) Glucose 142 H (70-99) mg/dl Calcium 8.9 (8.5-10.1) mg/dl Total Bilirubin 0.5 (0.2-1) mg/dl AST 32 (15-37) U/L ALT 33 (12-78) U/L Alkaline Phosphatase 77 (45-117) U/L Total Protein 7.0 (6.4-8.2) gm/dl Albumin 2.9 L (3.4-5.0) gm/dl Globulin 4.1 H (2.5-4.0) gm/dl Albumin/Globulin Ratio 0.7 L (0.9-2) (1) Acute pancreatitis Acute pancreatitis complication: unspecified Pancreatitis type: other Qualified Code(s): K85.80 - Other acute pancreatitis without necrosis or infection
--- NOTE | 2018-11-23 12:26 | Discharge Summary ---
Date of Service date of admission - November 07, 2018 date of discharge - November 12, 2018 Admission HPI Per Admitting Provider 53-year-old male presents the emergency department with progressively worsening right upper quadrant pain that radiates to his back. - He says he woke up on November 06 around 4 am with a feeling of "gas" discomfort in his abdomen. It never remitted throughout the day but was initially more manageable. Says around 5 PM became a lot worse so he took some Pepto-Bismol with no relief. He says by late this evening the pain became quite severe as a steady, burning pain in his RUQ radiating to his back. Positive nausea, denies any vomiting or diarrhea. Says last bowel movement was about 36 hours ago. Says this is the most severe abdominal pain he has ever had. Minimal p.o. intake yesterday due to feeling of bloating. Says his mouth is currently quite dry. Denies any recent fevers, illness, trauma, or other acute concerns. - He does note a previous episode of similar location and pain character (but not severity) to this many years ago. He says he was told it may be pancreatitis but ultimately it was diagnosed as gastritis. Principal Diagnosis acute gallstone pancreatitis Discharge Exam Constitutional well developed, well nourished and + obese; no acute distress Eyes + anicteric sclerae ENMT external ear and nose normal, oropharynx normal Respiratory normal respiratory effort, lungs clear to auscultation Cardiovascular Rate/Rhythm: regular rate and regular rhythm Heart Sounds: normal S1 and normal S2; no murmur Vessels: posterior tibial pulses present and dorsalis pedis pulses present; no JVD Extremities: no edema Gastrointestinal (Abdomen) normal bowel sounds, soft, nontender, no hepatosplenomegaly Inspection/Auscultation: + abdomen distended (mild) Skin multiple abdominal wall incisions clean; no drainage. Psychiatric A+Ox3, euthymic affect Discharge Data Allergies Allergy/AdvReac Type Severity Reaction Status Date / Time onions AdvReac Severe Gastrointestinal Uncoded 11/11/18 22:42 Upset Consultations 1. general surgery - Osvaldo Delong MD 2. gastroenterology - [facility] Procedures Performed Operation Date: 11/11/18 10:55 Actual Procedures Laparoscopic Cholecystectomy - Osvaldo Delong MD Ordered Studies 1. RUQ u/s - IMPRESSION: 1. Limited study due to patient's large body habitus. 2. Trace amount of gallbladder sludge. 3. Fatty replacement of the liver. 2. CT abd/pelvis (x 2) - IMPRESSION: 1. Acute pancreatitis involving the pancreatic uncinate process and to lesser extent pancreatic head. 2. Moderate peripancreatic infiltrative change. 3. No evidence for abscess collection or obstruction. 4. Chronic sigmoid diverticulosis. 5. A 7 mm nodule within the right lower lobe. This remains stable since a 2014 examination and is therefore considered to be benign. 3. HIDA scan - IMPRESSION: 1. No evidence of cystic duct obstruction. No evidence of acute cholecystitis. 2. Delayed visualization of the gallbladder. This can be seen in patients with generalized illness, as well as in "chronic cholecystitis" Hospital Course (1) Acute gallstone pancreatitis: The patient's acute gallstone(sludge) pancreatitis was treated in the customary fashion with IV fluids, pain meds, and bowel rest. He was covered with IV antibiotics in the event he had acute cholecystitis. He was seen in consult by [facility] and general surgery. MRCP and/or ERCP were not pursued as no imaging study nor his LFTs suggested CBD obstruction. He ultimately underwent an uncomplicated laparoscopic cholecystectomy by Dr Osvaldo Delong. Pathology was consistent with chronic cholecystitis. Post-op he did well with stable vitals, labs, and tolerated a diet without intolerance. Incisions were stable at time of discharge. He will follow-up with Dr Delong in the surgical clinic post-discharge. He was advised to follow a low-fat, DM diet. (2) Chronic cholecystitis: Intra-op findings and ultimately his pathology were all consistent with chronic cholecystitis. (3) Hypothyroidism: TSH compensated. Cont synthroid. (4) Hypertension: BPs mainly acceptable during his stay. No changes were made to his HTN medication regimen. (5) Hyperlipidemia: History of such but not on medications. LDL during this stay was 126. Triglycerides were normal at 92. (6) Factor V Leiden mutation: Coumadin was resumed post-op. In light of heightened perioperative VTE risk he was asked to bridge with lovenox 40mg once daily until INR was >2. Discharge INR was 1.4. He was advised to have repeat INR in 2-3 days post-discharge. (7) History of DVT (deep vein thrombosis): see above in "factor V Leiden mutation" (8) GERD (gastroesophageal reflux disease): PPI (9) Diabetes mellitus: Hemoglobin a1c 6.9%. He received DM education from the certified lactation educator on day of discharge. He will continue diet control for now. (10) Pulmonary nodule, right: 7mm RLL nodule, stable since 2013, arguing for benign etiology. No additional CT follow-up recommended at this time. Total Time Total Time Spent Total Time Spent (In Minutes): 40 Total Time Includes: Examination of the Patient, Discharge Planning and Medication Reconciliation Discharge Plan Discharge Items Patient Disposition: Home - Self-Care Reason For Visit: Abdominal PAIN, PANCREATITIS Discharge Diagnosis: Acute Cholecystitis (inflammation of gallbladder) Acute Pancreatitis (Inflammation of pancreas) Discharge Goals: Diagnostic testing and Therapeutic intervention Activity: Per 'Additional Instructions' section Non-emergency contact: Primary Care Provider and Surgeon Call non-emergency contact if: you have any medication questions, your symptoms worsen, your pain is not controlled, your pain is worsening, your pain is unusual for you, your pain is concerning for you, your temperature is above 100.5, your wound has increased redness, your wound has increased drainage and your wound pain has increased Follow-up/Referrals: Brad Barr MD [Primary Care Provider] - 11/19/18 10:00 am (Please, follow up at Dr. Barr's office with his assistant distribution manager, Ghazala Morrison PA-C, on SaturdayNovember 19 at 10:00 am. *If you need to change this appointment, call the office at [phone].) Osvaldo Delong MD [Physician] - (Please, follow up with Dr. Osvaldo Delong at [facility]. A nurse from this office is supposed to call you with appointment information. *This office is located at [address] [place] [address] in [place]. If you have any questions, call the office at [phone]) Diet: Carb Consistent or DM2 and Low Fat Other Ambulatory Orders: Prothrombin Time INR (Timed) Timeframe: 2 Days Location: Determined by Patient Ordered By: Arthur Santillan Add Provider Instructions: Surgical discharge instructions: - no heavy lifting over 20 pounds for 3-4 weeks - no strenuous activity until cleared by surgeon - no submerging incisions underwater for 2 weeks (no bathing, swimming, or hot tubs) - no driving while taking narcotic pain medication or until you are pain free - You may shower in 3 days, sponge bath and wash hair in meantime. After 3 days, remove outer dressings and shower. Leave steri strips on incisions for 7 days and then remove. - Walking and light activity is encouraged multiple times daily to prevent blood clots from forming in your legs. - You will be given prescription for narcotic pain medication (Percocet) as needed for moderate to severe pain. Take as directed. This medication may cause drowsiness and constipation. - You may take extra strength Tylenol or ibuprofen as needed for mild pain. - May take OTC stool softener (Colace) daily while taking narcotic pain medication to prevent constipation. - Follow-up in surgical office in 1-2 weeks, please call office at [phone] to make an appointment. Additional instructions from Arthur Santillan - Hospitalist - 1. please take lovenox injections daily until your INR is greater than 2. Start the lovenox injections on the AM of 11/13/2018 and give daily. You received a lovenox injection at the hospital on 11/12/18. 2. Discharge INR was 1.4 on 11/12/18. 3. Please RESUME your coumadin at your previous dosing. Take your coumadin as soon as you arrive home. 4. Ideally you should have a daily INR until your INR is greater than 2. If possible please have your INR checked on Saturday morning. Be sure your results go to Dr. Barr. 5. Your hemoglobin a1c was 6.9% recently. Your are a diet-controlled type 2 diabetic. Please follow a low-fat, diabetic diet. Please speak to Dr Barr about your diabetes and ways to control it. 6. The pain pills (oxycodone) will make you constipated. Be sure to stay on something for your bowels. Examples -- [id number] miralax and/or senakot. The pain pills also have tylenol in them -- do not take extra [id number]-oza-[id number] tylenol while on the pain killer medication. Follow-up -- * INR this Saturday at the latest * Dr Barr as scheduled * Dr Delong with surgery in 1-2 weeks Return to [facility] if -- * you have fevers over 100.5 degrees * you are severely constipated, bloated, have vomiting, etc * you are short of breath or having chest pain * you have redness or drainage around your incisions * any other concerns Prescriptions: New oxycodone-acetaminophen 5-325 mg tablet 1 tab PO Q4H PRN (Reason: pain) Qty: 18 RF: 0 Continued warfarin 7.5 mg Tablet 7.5 mg PO DAILY RF: 0 levothyroxine 200 mcg Tablet 200 mcg PO DAILY RF: 0 omeprazole 20 mg Tablet,Delayed Release (Dr/Ec) 20 mg PO DAILY RF: 0 indapamide 1.25 mg Tablet 1.25 mg PO QAM RF: 0 Stand-Alone Forms: Call Back Authorization, [facility], Work/School Release (Inpt) Discharge Orders: Discharge Order (Routine); Ordered 11/12/18 Ordered By: Arthur Santillan Admission Data Admit Date/Time: 11/07/18 04:10 Attending Provider: Arthur Santillan Admit Provider: Steve Cody Primary Care Provider: Brad Barr Other Providers: Javier Shah ; Anthony Carreon ; Willie Montalvo Service: Medical Other Interventions: Discharge Summary Assessment (RN) Last Done: 11/12/18 13:45 Pending Studies at Discharge: Yes (gallbladder pathology, will be reviewed at follow up visit) Studies:: pathology from gall bladder surgery DC Date/Time DO NOT enter until pt leaves facility: 11/12/18 14:07
== END 2018-11-12 14:07 | disposition home or self-care (01) | DRG 418 ==
LOC: ED 22:20 → 4W 11-07 04:10 → SUATTDRO 11-07 04:10 → 4W 11-07 05:09
DX: Z86.711 Personal history of pulmonary embolism; I45.81 Long QT syndrome; E11.9 Type 2 diabetes mellitus without complications; K85.90 Acute pancreatitis without necrosis or infection, unspecified; K29.80 Duodenitis without bleeding; E78.5 Hyperlipidemia, unspecified; K21.9 Gastro-esophageal reflux disease without esophagitis; Z86.718 Personal history of other venous thrombosis and embolism; Z79.01 Long term (current) use of anticoagulants; I10 Essential (primary) hypertension; D68.2 Hereditary deficiency of other clotting factors; E03.9 Hypothyroidism, unspecified

== ENCOUNTER 2024-07-27 16:10 | Observation (INO) ==
--- NOTE | 2024-07-27 17:02 | Emergency Department Note ---
History of Present Illness General Chief complaint: Animal Bite Stated complaint: CAT BITE TO THE LEFT HAND Time Seen by Provider: 07/27/24 17:01 History of Present Illness This is a right hand dominant 59-year-old male who presents to the emergency department via private vehicle with complaints of "infected cat bite". Patient notes he was bitten to the dorsum of the left hand yesterday by a family member's cat. Vaccines for the cat are up-to-date. His tetanus vaccine not up-to-date. He notes now progressive swelling, pain and redness to the left hand. He states that he was fine and then about a 4-hour time. Noted progressive swelling and redness to the dorsum of the left hand around 5 PM yesterday. Was seen earlier today at endocrinology office and referred in. No fevers or chills. Home Medications Medication Instructions Recorded Confirmed Type blood-glucose meter (Cirqle.nlTouch #1 ea 06/29/22 07/27/24 Rx Ultra2 Meter) lancets (OneTouch UltraSoft #200 ea 06/29/22 07/27/24 Rx Lancets) blood sugar diagnostic (OneTouch 10/05/22 07/27/24 History Ultra Test strips) omeprazole 20 mg capsule,delayed 20 mg PO QAM 11/07/23 07/27/24 History release warfarin 7.5 mg tablet 7.5 mg PO QAM 11/07/23 07/27/24 History empagliflozin 25 mg tablet 25 mg PO QAM #30 tabs 04/22/24 07/27/24 Rx levothyroxine 200 mcg tablet 200 mcg PO QAM #90 tabs 05/12/24 07/27/24 Rx cetirizine 10 mg tablet (Zyrtec) 10 mg PO QAM prn 06/12/24 07/27/24 History tramadol 50 mg tablet 50 mg PO BID PRN pain #60 tabs 06/12/24 07/27/24 Rx rosuvastatin 10 mg tablet 10 mg PO DAILY #30 tabs 06/30/24 07/27/24 Rx hydrocodone 7.5 mg-acetaminophen 1 tab PO TID PRN pain #75 tabs 07/06/24 07/27/24 Rx 325 mg tablet semaglutide 0.25 mg or 0.5 mg (2 0.5 mg subcut WK 07/27/24 07/27/24 History mg/3 mL) subcutaneous pen injector (Ozempic) amoxicillin 875 mg-potassium 1 tab PO BID #9 tabs 07/28/24 Rx clavulanate 125 mg tablet Allergies Allergy/AdvReac Type Severity Reaction Status Date / Time No Known Drug Allergies Allergy Verified 07/27/24 15:28 onions AdvReac Severe Gastrointestinal Uncoded 07/27/24 15:28 Upset Past Med/Surg History Problem List (Updated 07/27/24 @ 18:25 by Efren Corley PA-C) Cat bite of left hand with infection (Acute) Type 2 diabetes mellitus Status post arthroscopy of left shoulder Rotator cuff tear, left Myalgia Arthralgia Ventral hernia Allergic rhinitis Disc degeneration, lumbar Lumbar arthropathy Lumbar canal stenosis GERD (gastroesophageal reflux disease) Factor V Leiden mutation Hyperlipidemia Hypertension Hypothyroidism Medical History penitentiary (current) use of anticoagulants warfarin Lumbar canal stenosis Hypothyroidism Allergic rhinitis Lumbar degenerative disc disease Diabetes mellitus Factor V Leiden mutation taking Warfarin GERD (gastroesophageal reflux disease) Hyperlipidemia Hypertension History of pancreatitis due to gallstones, resolved History of DVT (deep vein thrombosis) History of pulmonary embolism Surgical History History of shoulder surgery Left bone spur and rotor cuff surgery History of basal cell carcinoma excision History of cholecystectomy (~2018) History of repair of right rotator cuff History of umbilical hernia repair (~2009) Previous back surgery spinal discectomy lumbar Family History Other Diabetes Social History Smoking Status: Never smoker Tobacco Type: Cigarettes Cigarettes Per Day: once a year; Second Hand Exposure: No; Do You Dip or Chew Tobacco: No; Hx Alcohol Use: No Hx Substance Use: No Preferred Language: Turkish Communication Ability: Effective Visual Impairment: No Limitations Population Health Coach Required: No Beliefs That Will Affect Care: None marital status: Current Living Situation: Spouse current occupational status: employed Feels Safe at Home: Yes Assistive Devices: None Review of Systems A total of 10 systems reviewed and were otherwise negative Physical Exam Vital Signs Vital Signs - 24 hr 07/27/24 17:00 02/03/25 17:11 07/27/24 17:17 Temperature 36.6 C Temperature Source Oral Pulse Rate 76 Pulse Rate [Finger] 78 Respiratory Rate 18 20 Respiratory Effort / Characteristics Non-Labored Non-Labored Spontaneous Respiratory Depth Normal Normal Respiratory Pattern Regular Blood Pressure 145/91 H Blood Pressure [Left Arm] 165/104 H Blood Pressure Mean 109 Blood Pressure Mean [Left Arm] 124 Pulse Oximetry 98 96 Oxygen Delivery Method Room Air Room Air Sepsis Recent Fever Within 48 Hours No Sepsis New/Unexplained Change in Mental Status No Sepsis Action Taken by Nursing No Action Required 07/27/24 17:53 07/27/24 18:26 Temperature Temperature Source Pulse Rate Pulse Rate [Finger] 69 69 Respiratory Rate 20 18 Respiratory Effort / Characteristics Respiratory Depth Respiratory Pattern Blood Pressure Blood Pressure [Left Arm] 158/91 H 153/97 H Blood Pressure Mean Blood Pressure Mean [Left Arm] 113 115 Pulse Oximetry 98 97 Oxygen Delivery Method Room Air Room Air Sepsis Recent Fever Within 48 Hours Sepsis New/Unexplained Change in Mental Status Sepsis Action Taken by Nursing VITAL SIGNS - Vital signs and nursing notes were reviewed. Hypertensive, otherwise stable and afebrile. GENERAL -59-year-old male appearing his stated age who is in no acute distress. Communicates well with provider and answers questions appropriately. SKIN -puncture wound to the mid dorsum of the left hand noted with surrounding erythema encompassing nearly all of the soft tissue's on the dorsum of the left hand with some streaking to the extensor aspect of the left wrist. HEAD - NC/AT. NECK - No nuchal rigidity. LUNGS -clear to auscultation. CARDIAC -regular rate and rhythm. ABDOMEN - Abdominal contour normal without pulsations or visible masses. BS normoactive all four quadrants. No tenderness, palpable masses, hepatosplenomegaly, or ascites noted. EXTREMITIES - No clubbing or peripheral cyanosis. +5/5 strength noted in UE/LE bilaterally. Full range motion of all digits of left hand actively as well as left hand and left wrist. Left hand is well-perfused. Skin as above. NEUROLOGIC - Cranial nerves II through XII grossly intact. PSYCH -alert, oriented and pleasant on exam Course Administered Medications Discontinued Medications Hydrocodone Bitart/Acetaminophen (Hydrocodone/Acetaminophen 7.5/325mg Tab) 1 tab PO TID PRN PRN Reason: pain Stop: 08/10/24 21:20 Last Admin: 07/28/24 07:09 Dose: 1 tab Documented By: Admin: 07/27/24 21:52 Dose: 1 tab Documented By: LIDIA Cetirizine HCl (Cetirizine Hcl 10 Mg Tablet) 10 mg PO QAM ASHLEY Stop: 08/27/24 08:59 Last Admin: 07/28/24 08:12 Dose: 10 mg Documented By: TASHA Diphtheria/Pertussis/Tetanus Vacc (Diphther/Tetan/Pertus Vaccine (Tdap, Adol/Adult) 0.5ml) 0.5 ml IM .ONCE ONE Stop: 07/27/24 17:03 Last Admin: 07/27/24 17:13 Dose: 0.5 ml Documented By: ALONSO Ampicillin Sodium/Sulbactam Sodium (Unasyn) 3,000 mg in 100 mls @ 200 mls/hr IV NOW STA Stop: 07/27/24 17:31 Last Infusion: 07/27/24 17:53 Dose: Infused Documented By: Admin: 07/27/24 17:14 Dose: 200 mls/hr Documented By: ALONSO Ampicillin Sodium/Sulbactam Sodium (Unasyn) 3,000 mg in 100 mls @ 200 mls/hr IV Q6H ASHLEY Stop: 08/03/24 23:29 Last Infusion: 07/28/24 11:57 Dose: Infused Documented By: Infusion: 07/28/24 11:48 Dose: 0 mls/hr Documented By: Admin: 07/28/24 11:47 Dose: 200 mls/hr Documented By: Infusion: 07/28/24 06:33 Dose: Infused Documented By: Admin: 07/28/24 05:57 Dose: 200 mls/hr Documented By: Infusion: 07/27/24 23:36 Dose: Infused Documented By: Admin: 07/27/24 22:52 Dose: 200 mls/hr Documented By: LIDIA Insulin Aspart (Insulin Aspart Per Unit Charge) 0 units SC ACHS ASHLEY Stop: 08/26/24 21:29 Last Admin: 07/28/24 11:51 Dose: Not Given Documented By: Admin: 07/28/24 08:17 Dose: 3 units Documented By: TASHA Co-signed By: RODERICK Admin: 07/27/24 21:45 Dose: 1 units Documented By: LIDIA Co-signed By: MARTINA Levothyroxine Sodium (Levothyroxine Sodium 200 Mcg Tablet) 200 mcg PO DAILYBB [facility] Stop: 08/27/24 06:29 Last Admin: 07/28/24 05:57 Dose: 200 mcg Documented By: LIDIA Pantoprazole Sodium (Pantoprazole 40 Mg Tab) 40 mg PO QAM [facility] Stop: 08/27/24 08:59 Last Admin: 07/28/24 08:12 Dose: 40 mg Documented By: TASHA Rosuvastatin Calcium (Rosuvastatin Calcium 10 Mg Tab) 10 mg PO DAILY [facility] Stop: 08/27/24 08:59 Last Admin: 07/28/24 08:12 Dose: 10 mg Documented By: TASHA Medical Decision Making Laboratory Data 07/28/24 09:22 07/28/24 09:22 Lab Results 07/27/24 Range/Units 17:22 WBC 10.63 (4.8-10.8) K/ul RBC 5.65 (4.70-6.10) M/uL Hgb 17.0 (14.0-18.0) g/dl Hct 50.3 (42.0-52.0) % MCV 89.0 (80.0-100.0) fL MCH 30.1 (25.0-34.0) pg MCHC 33.8 (32.0-36.0) g/dL RDW Std Deviation 44.4 (36.4-46.3) fL RDW Coeff of Adrian 13.7 (11.5-14.5) % Plt Count 281 (130-400) K/uL MPV 9.3 L (9.4-12.4) fL Immature Gran % (Auto) 0.5 % Neut % (Auto) 60.3 % Lymph % (Auto) 26.3 % [place] % (Auto) 8.7 % Eos % (Auto) 3.4 % Baso % (Auto) 0.8 % Neut # (Auto) 6.40 (1.40-6.50) K/uL Lymph # (Auto) 2.80 (1.20-3.40) K/uL [place] # (Auto) 0.93 H (0.11-0.59) K/uL Eos # (Auto) 0.36 (0.00-0.50) K/uL Baso # (Auto) 0.09 (0.00-0.20) K/uL Immature Gran # (Auto) 0.05 (0.01-0.20) K/uL PT 19.8 H (9.0-12.0) Seconds INR 1.9 H (0.9-1.1) APTT 33 H (21-31) Seconds PTT Ratio 1.2 Sodium 137 (136-145) mmol/L Potassium 3.7 (3.5-5.1) mmol/L Chloride 101 (98-107) mmol/L Carbon Dioxide 29 (21-32) mmol/L Anion Gap 7 (3-11) BUN 13 (6-23) mg/dl Creatinine 1.24 (0.6-1.4) mg/dl Est Cr Clr Drug Dosing 85.3 ml/min eGFR 67.81 BUN/Creatinine Ratio 10.5 (10-20) Glucose 97 (70-99(Fasting)) mg/dl Calcium 9.0 (8.6-10.3) mg/dl Imaging Data Radiologist's Impression: Hand X-Ray 07/27/24 17:02 INDICATION: Cat bite. TECHNIQUE: 3 views of the left hand. COMPARISON: No relevant priors. FINDINGS: No acute fracture or dislocation. No lytic or blastic bony lesions seen. Mild first carpal metacarpal joint space loss. Soft tissue swelling. No foreign body. IMPRESSION: No acute osseous abnormality evident. Soft tissue swelling. No foreign body. Electronically signed by Wil Martínez 07-27-2024 5:43 PM MDM Narrative Patient was seen and evaluated as above in room D04. Review was performed of triage nursing notes and vital signs. I did review pertinent previous visits and patient history. After obtaining a thorough history and physical examination the above work up was performed. Patient presents for evaluation of an infected cat bite to the dorsum of the left hand. Patient was seen in triage and IV antibiotics and tetanus vaccine already ordered. X-ray, blood work already ordered as well. Noting the rapid progression of symptoms and the infected dorsum of the left hand, I do believe that IV antibiotics are warranted. Labs reveal no leukocytosis or concerning anemia. INR 1.9 consistent with anticoagulated state. PRP without significant disturbance. Patient notes the animals vaccines are up-to-date to include rabies. With the rapid onset of symptoms, as well as some streaking down to the dorsum of the left wrist/forearm and pain radiating up to the left shoulder, I do believe that IV therapy the antibiotics is warranted. I do believe he would benefit from continued IV antibiotics throughout the night with reevaluation tomorrow. Case discussed with hospitalist service. Please refer to further documentation regarding his stay. GCS: 15 In the evaluation and treatment of this patient the following differential diagnoses were entertained: Fracture, cat bite cellulitis, retained foreign body, among others Impression & Plan Cat bite of left hand with infection Discharge Plan Visit Data Chief Complaint: Animal Bite Stated Complaint: CAT BITE TO THE LEFT HAND ED Provider: Price Pedersen ED Midlevel Provider: Efren Corley Discharge Problem: Cat bite of left hand with infection Patient Disposition: Admitted As Inpatient Condition: Good Discharge Instructions Interventions: ED Discharge Assessment Last Done: 07/27/24 20:13
--- NOTE | 2024-07-27 17:02 | ED Triage Note ---
Date of Service July 27, 2024 Provider in Triage Author: Mercedes Lau History of Present Illness This patient was briefly evaluated while in triage. An abbreviated physical exam was performed. This patient is a 59-year-old Male who presents to the ED for evaluation of cat bite. Pt. got bitten by brother's cat. Animal is UTD on vaccines. Got spooked while patient was feeding cat. Happened yesterday at noon. Referred by md ophthalmologist who saw patient outpatient today. Physical Exam VITALS: Vitals are noted on the nurse's note and reviewed by myself. GENERAL: This is a 59 year old male, in no acute distress, nondiaphoretic, well- developed well-nourished. SKIN: Erythema with puncture wound on dorsal aspect of left hand. HEAD: Normocephalic atraumatic. EYES: Conjunctivae without injection, sclerae without icterus. NECK: No JVD. LUNGS: No retractions or accessory muscle use. MUSCULOSKELETAL: Normal gait. NEURO: Patient was alert and oriented to person place and time. No focal neurological deficits. Initial orders for labs and / or imaging were placed and patient was placed in the waiting area until a bed is available. Please see further documentation for the full ED course. MDM / Impression Impression Impression: Cat bite of left hand with infection
[2024-07-27] MEDS: DIPHTHER/TETAN/PERTUS Vaccine (Tdap, Adol/Adult) 0.5mL IM ONE (17:13)
[2024-07-27] MEDS: AMPICILLIN/SULBACTAM SOD 3,000 MG/100 ML BAG IV STA (17:14)
[2024-07-27 17:18] VITALS: TEMP 97.9
[2024-07-27 17:42] LABS: Basophils # (auto) 0.09 K/uL (0.00-0.20); Basophils % (auto) 0.8 %; Eosinophils # (auto) 0.36 K/uL (0.00-0.50); Eosinophils % (auto) 3.4 %; Hematocrit (blood only) 50.3 % (42.0-52.0); Immature Granulocytes # (auto) 0.05 K/uL (0.01-0.20); Immature Granulocytes % (auto) 0.5 %; Lymphocytes % (auto) 26.3 %; Mean Corpuscular Hemoglobin 30.1 pg (25.0-34.0); Mean Corpuscular Hgb Conc 33.8 g/dL (32.0-36.0); Mean Platelet Volume 9.3 fL (9.4-12.4); Monocytes # (auto) 0.93 K/uL (0.11-0.59); Monocytes % (auto) 8.7 %; Neutrophils % (auto) 60.3 %; Platelet Count 281 K/uL (130-400); RDW Coefficient of Variation 13.7 % (11.5-14.5); RDW Standard Deviation 44.4 fL (36.4-46.3); Red Blood Count 5.65 M/uL (4.70-6.10); White Blood Count 10.63 K/ul (4.8-10.8)
--- NOTE | 2024-07-27 17:43 | XRay Report ---
INDICATION: Cat bite. TECHNIQUE: 3 views of the left hand. COMPARISON: No relevant priors. FINDINGS: No acute fracture or dislocation. No lytic or blastic bony lesions seen. Mild first carpal metacarpal joint space loss. Soft tissue swelling. No foreign body. IMPRESSION: No acute osseous abnormality evident. Soft tissue swelling. No foreign body. Electronically signed by Wil Martínez 07-27-2024 5:43 PM
[2024-07-27 18:04] LABS: BUN Creatinine Ratio 10.5 (10-20); Creatinine Clr Calc Pharmacy 85.3 ml/min; Potassium 3.7 mmol/L (3.5-5.1)
[2024-07-27 18:15] LABS: INR 1.9 (0.9-1.1); Partial Thromboplastin Ratio 1.2; Partial Thromboplastin Time 33 Seconds (21-31); Prothrombin Time 19.8 Seconds (9.0-12.0)
--- NOTE | 2024-07-27 18:15 | History & Physical Report ---
Date of Service July 27, 2024 Assessment & Plan (1) Cat bite of left hand with infection: (2) Type 2 diabetes mellitus: (3) Factor V Leiden mutation: Kj Salinas is a pleasant 59-year-old male with PMH of T2DM, GERD, factor V Leiden, HLD, HTN, and hypothyroidism. He presented on 07/27 for erythema and swelling secondary to a cat bite. Cat bite occurred around noon on the day prior. Patient is currently watching his brother's cat who is on vacation. Around noon, he went over to feed the cat, the cat bit his left hand. Initially, the bite was unremarkable, but then around 5 PM that day, he developed swelling and erythema. He denies any fevers at home. No loss of ability to bend his fingers, but bending the fingers does exacerbate his pain. He rates the pain 6/10 at present in the dorsal aspect of his left hand with radiation up the arm. #Cat bite of left hand with infection Left hand x-ray revealed no acute osseous abnormalities Unasyn 3000 mg IV q6h Acetaminophen as needed for fever #Chronic lower back pain Verified medications and PDMP Continue tramadol as needed Continue [place] as needed #T2DM Last A1c at 7.1% on 02/22/2023 Hold Jardiance, semaglutide SSI with target BSG range 110-140mg/dL, CF 50, carb ratio 15 T2DM diet BSG ACHS Adjust regimen as needed AM A1c #History of factor V Leiden Continue warfarin Trend PT/INR Disposition: Observation admit to [facility] Full code T2DM diet VTE PPx: On warfarin History of Present Illness Chief Complaint: Animal bite Primary Care Provider: Minesh Otto DO Brad is a pleasant 59-year-old male with PMH of T2DM, GERD, factor V Leiden, HLD, HTN, and hypothyroidism. He presented on 07/27 for erythema and swelling on his left hand secondary to a cat bite. Cat bite occurred around noon on the day prior. Patient is currently watching his brother's cat who is on vacation. Around noon, he went over to feed the cat, the cat bit his left hand. Initially, the bite was unremarkable, but then around 5 PM that day, he developed swelling and erythema. He denies any fevers at home. No loss of ability to bend his fingers, but bending the fingers does exacerbate his pain. He rates the pain 6/10 at present in the dorsal aspect of his left hand with radiation up the arm. He characterizes it as a sharp, constant pain. He did not take any pain medicine at home specifically for this, but he does take tramadol as needed for his back pain. Patient reports pain streaking up his arm into his shoulder. Additionally, he notes mild numbness in his left hand. Patient took his regular morning medicine today; no recent change in medications. He is on warfarin for history of factor V Leiden. He reports he is not currently taking Xarelto (will remove from medication list). NKDA. He reports he had his tetanus shot updated in the emergency department. His daughter is currently a PA student at [employer] on clinical rotations. Patient is hypertensive at 153/97 at the admission; vitals otherwise stable. ED course: Unasyn 3000 mg IV DTaP vaccine IM ROS: Patient endorses pain and numbness in his left hand. Patient denies fever, chills, night sweats, dizziness, lightheadedness, headache, chest pain, chest palpitations, SOB, cough, abdominal pain, N/B/D, changes in urinary or bowel habits, or loss of sensation or function in the left hand. Allergies Allergy/AdvReac Type Severity Reaction Status Date / Time No Known Drug Allergies Allergy Verified 07/27/24 15:28 onions AdvReac Severe Gastrointestinal Uncoded 07/27/24 15:28 Upset Home Medications Medication Instructions Recorded Confirmed Type blood-glucose meter (DualogTouch #1 ea 06/29/22 07/27/24 Rx Ultra2 Meter) lancets ([employer] UltraSoft #200 ea 06/29/22 07/27/24 Rx Lancets) blood sugar diagnostic ([employer] 10/05/22 07/27/24 History Ultra Test strips) omeprazole 20 mg capsule,delayed 20 mg PO QAM 11/07/23 07/27/24 History release warfarin 7.5 mg tablet 7.5 mg PO QAM 11/07/23 07/27/24 History empagliflozin 25 mg tablet 25 mg PO QAM #30 tabs 04/22/24 07/27/24 Rx levothyroxine 200 mcg tablet 200 mcg PO QAM #90 tabs 05/12/24 07/27/24 Rx cetirizine 10 mg tablet (Zyrtec) 10 mg PO QAM prn 06/12/24 07/27/24 History tramadol 50 mg tablet 50 mg PO BID PRN pain #60 tabs 06/12/24 07/27/24 Rx rosuvastatin 10 mg tablet 10 mg PO DAILY #30 tabs 06/30/24 07/27/24 Rx hydrocodone 7.5 mg-acetaminophen 1 tab PO TID PRN pain #75 tabs 07/06/24 07/27/24 Rx 325 mg tablet semaglutide 0.25 mg or 0.5 mg (2 0.5 mg subcut WK 07/27/24 07/27/24 History mg/3 mL) subcutaneous pen injector (Ozempic) Past Med/Surg History Problem List (Updated 07/27/24 @ 18:25 by Efren Corley PA-C) Cat bite of left hand with infection (Acute) Type 2 diabetes mellitus Status post arthroscopy of left shoulder Rotator cuff tear, left Myalgia Arthralgia Ventral hernia Allergic rhinitis Disc degeneration, lumbar Lumbar arthropathy Lumbar canal stenosis GERD (gastroesophageal reflux disease) Factor V Leiden mutation Hyperlipidemia Hypertension Hypothyroidism Medical History FPC (current) use of anticoagulants warfarin Lumbar canal stenosis Hypothyroidism Allergic rhinitis Lumbar degenerative disc disease Diabetes mellitus Factor V Leiden mutation taking Warfarin GERD (gastroesophageal reflux disease) Hyperlipidemia Hypertension History of pancreatitis due to gallstones, resolved History of DVT (deep vein thrombosis) History of pulmonary embolism Surgical History History of shoulder surgery Left bone spur and rotor cuff surgery History of basal cell carcinoma excision History of cholecystectomy (~2018) History of repair of right rotator cuff History of umbilical hernia repair (~2009) Previous back surgery spinal discectomy lumbar Family History Other Diabetes Social History Smoking Status: Former smoker Tobacco Type: Cigarettes Cigarettes Per Day: once a year; Second Hand Exposure: No; Do You Dip or Chew Tobacco: No; Hx Alcohol Use: Yes Hx Substance Use: No Preferred Language: [place] Communication Ability: Effective Visual Impairment: No Limitations Heel Builder Machine Required: No Beliefs That Will Affect Care: None marital status: Current Living Situation: Spouse current occupational status: employed Feels Safe at Home: Yes Assistive Devices: None Review of Systems 2 Review of Systems: See HPI above Physical Exam 2 Physical Exam: General: no acute distress; non-toxic appearing; well-nourished; cooperative; SpO2 97% on RA HEENT: normocephalic, atraumatic; no scleral icterus; PERRLA; vision and hearing grossly intact Neck: supple; trachea midline Skin: warm, dry without signs of tenting; no cyanosis Left hand: Dorsal aspect of the right hand is erythematous and swollen (see photo below); some concern for early lymphangitic streaking going up the arm; patient demonstrates ability to bend all fingers on isolating DIP and PIP joints, albeit with some pain CV: chest wall NTP; RRR; S1/S2 normal; no murmurs/rubs/gallops; pulses intact and symmetric at radial, DP, and PT Lungs: no acute respiratory distress; symmetrical chest wall expansion; clear breath sounds across all lung becerril w/o adventitious sounds; no wheezing ABD: Soft, NTP; BS present; no rebound/guarding; no distention MSK: no tics or fasciculations; no edema noted in the LEs b/l, nonerythematous Neuro: A&Ox3; normal mood and affect; fluent speech; no focal deficits; patient reports sensation is intact and symmetric in the hands bilaterally Results & Data Results & Data Vital Signs (Past 12 Hours) Vital Signs Temp Pulse Pulse Resp BP BP Pulse Ox 07/27/24 17:53 69 20 158/91 H 98 07/27/24 17:17 36.6 C 07/27/24 17:11 78 20 165/104 H 96 07/27/24 17:00 76 18 145/91 H 98 O2 Del Method 07/27/24 17:53 Room Air 07/27/24 17:17 07/27/24 17:11 Room Air 07/27/24 17:00 Room Air Laboratory Results Abnormal lab results 07/27/24 Range/Units 17:22 MPV 9.3 L (9.4-12.4) fL [place] # (Auto) 0.93 H (0.11-0.59) K/uL PT 19.8 H (9.0-12.0) Seconds INR 1.9 H (0.9-1.1) APTT 33 H (21-31) Seconds Diagnostic Findings Hand X-Ray 07/27/24 17:02 INDICATION: Cat bite. TECHNIQUE: 3 views of the left hand. COMPARISON: No relevant priors. FINDINGS: No acute fracture or dislocation. No lytic or blastic bony lesions seen. Mild first carpal metacarpal joint space loss. Soft tissue swelling. No foreign body. IMPRESSION: No acute osseous abnormality evident. Soft tissue swelling. No foreign body. Electronically signed by Wil Martínez 07-27-2024 5:43 PM Code Status & VTE Plan Code Status Full code VTE Prophylaxis Plan VTE Prophylaxis will be ordered: Yes Supervising Physician Co-Signing Physician Notes I have personally seen, evaluated and examined the patient. I have also personally discussed the management of the patient with the resident physician/BUSTER and I agree with the exam findings documented in the history and physical examination and the documented assessment and plan unless otherwise stated below. Brief Exam: In general pleasant 59-year-old male was alert and oriented x 3, exam interacts appropriate and pleasantly, exam his only complaint is left hand pain associated with his cat bite. HEENT: Normocephalic atraumatic. Heart: Regular rate and rhythm. Lungs: Clear bilaterally. Abdomen: Soft nontender positive bowel sounds no pressure organomegaly. Extremities: Intact no clubbing cyanosis or edema with the exception of his left hand. As pictured above puncture wound from cat bite in the dorsum of his hand with surrounding erythema and edema with erythema extending up to his forearm excetra. He does have normal range of motion of this extremity/hand. Neurologically: Alert and oriented x 3 and grossly intact with no focal deficit. Assessment/plan: As described above. Continue IV Unasyn. Monitor response clinically. Probable IV antibiotics 24 to 48 hours pending clinical response given his diabetes he is high risk for progression. Once the patient improves significantly clinically consideration can be switched over to Augmentin orally to complete antibiotic course. Please refer to orders for further planning. PG Care Time/CCT Total # of Minutes Spent Total Time Spent with Patient: Total time spent is greater than 50% in coordination of care (as documented) at patient's floor/unit and/or counseling patient: C[place] [address] INT INP/OBS CARE 3/75MIN Patient Type Established Medical Decision Making High Complexity Diagnoses Cat bite of left hand with infection S61.452A; L08.9; W55.01XA Type 2 diabetes mellitus E11.9 Factor V Leiden mutation D68.51
[2024-07-27] MEDS ORDERED: DEXTROSE 50% 50 ML SYRINGE IV PRN (21:21)
[2024-07-27] MEDS ORDERED: GLUCAGON FOR INJ 1 MG VIAL SQ PRN (21:21)
[2024-07-27] MEDS ORDERED: GLUCOSE 10 TAB/TUBE PO PRN (21:21)
[2024-07-27] MEDS ORDERED: ONDANSETRON INJ 2 MG/ML 2 ML VIAL IV PRN (21:21)
[2024-07-27] MEDS ORDERED: CARBOHYDRATES FOR HYPOGLYCEMIA PO PRN (21:21)
[2024-07-27] MEDS ORDERED: GLUCOSE 40% GEL 15 GM TUBE PO PRN (21:21)
[2024-07-27] MEDS ORDERED: ACETAMINOPHEN 325 MG TAB PO PRN (21:21)
[2024-07-27] MEDS ORDERED: MELATONIN 3 MG TAB PO PRN (21:21)
[2024-07-27] MEDS ORDERED: traMADol HCL 50 MG TABLET PO PRN (21:21)
[2024-07-27] MEDS: INSULIN ASPART PER UNIT CHARGE SC SCH (21:45)
[2024-07-27] MEDS: HYDROCODONE/ACETAMINOPHEN 7.5/325MG TAB PO PRN (21:52)
[2024-07-27] MEDS: AMPICILLIN/SULBACTAM SOD 3,000 MG/100 ML BAG IV SCH (22:52)
[2024-07-28] MEDS: LEVOTHYROXINE SODIUM 200 MCG TABLET PO SCH (05:57)
[2024-07-28 07:25] VITALS: BP 136/83; PULSE 58; RESP 16; O2SAT 95
[2024-07-28] MEDS: ROSUVASTATIN CALCIUM 10 MG TAB PO SCH (08:12)
[2024-07-28] MEDS: CETIRIZINE HCL 10 MG TABLET PO SCH (08:12)
[2024-07-28] MEDS: PANTOprazole 40 MG TAB PO SCH (08:12)
[2024-07-28 09:45] LABS: Basophils # (auto) 0.11 K/uL (0.00-0.20); Basophils % (auto) 1.3 %; Eosinophils # (auto) 0.34 K/uL (0.00-0.50); Eosinophils % (auto) 3.9 %; Hematocrit (blood only) 46.5 % (42.0-52.0); Hemoglobin 16.2 g/dl (14.0-18.0); Immature Granulocytes # (auto) 0.04 K/uL (0.01-0.20); Immature Granulocytes % (auto) 0.5 %; Lymphocytes % (auto) 24.2 %; Mean Corpuscular Hemoglobin 31.1 pg (25.0-34.0); Mean Corpuscular Hgb Conc 34.8 g/dL (32.0-36.0); Mean Corpuscular Volume 89.3 fL (80.0-100.0); Mean Platelet Volume 9.5 fL (9.4-12.4); Monocytes % (auto) 6.9 %; Neutrophils # (auto) 5.47 K/uL (1.40-6.50); Neutrophils % (auto) 63.2 %; Platelet Count 267 K/uL (130-400); RDW Coefficient of Variation 13.6 % (11.5-14.5); RDW Standard Deviation 44.3 fL (36.4-46.3); Red Blood Count 5.21 M/uL (4.70-6.10); White Blood Count 8.66 K/ul (4.8-10.8)
[2024-07-28 10:06] LABS: BUN Creatinine Ratio 13.3 (10-20); Calcium 8.9 mg/dl (8.6-10.3); Creatinine Clr Calc Pharmacy 107.9 ml/min; Potassium 4.5 mmol/L (3.5-5.1)
[2024-07-28 10:10] LABS: INR 1.8 (0.9-1.1)
--- NOTE | 2024-07-28 11:15 | Discharge Summary ---
Discharge Summary Date of Service July 28, 2024 Principal Dx & Hospital Course #1 = Principal Diagnosis (1) Cat bite of left hand with infection: (2) Type 2 diabetes mellitus: (3) Factor V Leiden mutation: Kj Salinas is a pleasant 59-year-old male with PMH of T2DM, GERD, factor V Leiden, HLD, HTN, and hypothyroidism. He presented on 07/27 for erythema and swelling secondary to a cat bite. Cat bite occurred around noon on the day prior. Patient is currently watching his brother's cat who is on vacation. Around noon, he went over to feed the cat, the cat bit his left hand. Initially, the bite was unremarkable, but then around 5 PM that day, he developed swelling and erythema. He denies any fevers at home. No loss of ability to bend his fingers, but bending the fingers does exacerbate his pain. He rates the pain 6/10 at present in the dorsal aspect of his left hand with radiation up the arm. #Cat bite of left hand with infection Left hand x-ray revealed no acute osseous abnormalities Unasyn 3000 mg IV q6h --> transitioned to Augmentin BID x 5 additional days on discharge. Patient to follow up w/ PCP on 07/31 Acetaminophen as needed for fever patient w/o fevers overnight. Erythema of left hand improved. #Chronic lower back pain Verified medications and PDMP Continue tramadol as needed Continue [place] as needed #T2DM Last A1c at 7.1% on 02/22/2023, updated A1c pending resume outpatient diabetic medications #History of factor V Leiden Continue warfarin Patient discharged to home 07/28 w/ means to follow up with PCP on 07/31. Admission HPI Per Admitting Provider Brad is a pleasant 59-year-old male with PMH of T2DM, GERD, factor V Leiden, HLD, HTN, and hypothyroidism. He presented on 07/27 for erythema and swelling on his left hand secondary to a cat bite. Cat bite occurred around noon on the day prior. Patient is currently watching his brother's cat who is on vacation. Around noon, he went over to feed the cat, the cat bit his left hand. Initially, the bite was unremarkable, but then around 5 PM that day, he developed swelling and erythema. He denies any fevers at home. No loss of ability to bend his fingers, but bending the fingers does exacerbate his pain. He rates the pain 6/10 at present in the dorsal aspect of his left hand with radiation up the arm. He characterizes it as a sharp, constant pain. He did not take any pain medicine at home specifically for this, but he does take tramadol as needed for his back pain. Patient reports pain streaking up his arm into his shoulder. Additionally, he notes mild numbness in his left hand. Patient took his regular morning medicine today; no recent change in medications. He is on warfarin for history of factor V Leiden. He reports he is not currently taking Xarelto (will remove from medication list). NKDA. He reports he had his tetanus shot updated in the emergency department. His daughter is currently a PA student at [employer] on clinical rotations. Patient is hypertensive at 153/97 at the admission; vitals otherwise stable. ED course: Unasyn 3000 mg IV DTaP vaccine IM ROS: Patient endorses pain and numbness in his left hand. Patient denies fever, chills, night sweats, dizziness, lightheadedness, headache, chest pain, chest palpitations, SOB, cough, abdominal pain, N/B/D, changes in urinary or bowel habits, or loss of sensation or function in the left hand. Discharge Exam Constitutional WD/WN, vitals as above Eyes PERRL, conjunctivae normal, anicteric sclerae Respiratory breathing unlabored Cardiovascular well perfused Musculoskeletal erythema of left hand improved since day prior per markings. Patient able to flex and extend left hand/fingers. No erythema streaking on arm visualized. No drainage. Psychiatric A+Ox3, euthymic affect Discharge Plan Discharge Items Patient Disposition: Home - Self-Care Reason For Visit: PAUL BIT Discharge Diagnosis: Cat bite, left hand cellulitis Condition on Discharge: Good Activity: Resume your previous activity Non-emergency contact: Primary Care Provider Call non-emergency contact if: you have any medication questions, your symptoms worsen and you have a fever Follow-up/Referrals: Minesh Otto DO [Primary Care Provider] - 07/31/24 11:30 am (Hospital follow up appointment) Diet: Regular Addtl Attending Provider Instructions: Mr. Jeffrey, You were recently hospitalized following a cat bite to your left hand. You were treated with IV antibiotics and had improvement of your symptoms. Please see recommendations below regarding your discharge. 1. Please take Augmentin twice daily for the next 5 days. Your first dose at home will be this evening, 07/28. Please take with food and a probiotic to avoid upset stomach. 2. Please follow up with your PCP at the appointment that has been scheduled for you as above. (07/31/2024 at 11:30 AM) 3. The remainder of your outpatient medications may be resumed as previously taking. If you develop any worsening left hand pain, swelling, redness, or drainage from wound site please report back to the ER for further care. Sincerely, Chanel Velasquez PA-C Pending Studies at Discharge: No Stand-Alone Forms: My [facility] [place], Smoking Cessation Medications and DC Order Prescriptions: New amoxicillin-pot clavulanate 875-125 mg tablet 1 tab PO BID Qty: 9 0RF Continued empagliflozin 25 mg tablet 25 mg PO QAM Qty: 30 5RF Rx Instructions: Take one tablet once daily by mouth. levothyroxine 200 mcg tablet 200 mcg PO QAM Qty: 90 0RF Rx Instructions: TAKE 1 TABLET BY MOUTH EVERY DAY rosuvastatin 10 mg tablet 10 mg PO DAILY Qty: 30 5RF hydrocodone-acetaminophen 7.5-325 mg tablet 1 tab PO TID PRN (Reason: pain) Qty: 75 0RF cetirizine [Zyrtec] 10 mg tablet 10 mg PO QAM Rx Instructions: otc unable to verify tramadol 50 mg tablet 50 mg PO BID PRN (Reason: pain) Qty: 60 0RF Ozempic 0.25 mg or 0.5 mg (2 mg/3 mL) pen injector 0.5 mg subcut WK warfarin 7.5 mg tablet 7.5 mg PO QAM Rx Instructions: TAKE 1 TABLET BY MOUTH EVERY DAY omeprazole 20 mg capsule,delayed release(DR/EC) 20 mg PO QAM Rx Instructions: TAKE 1 CAPSULE BY MOUTH DAILY No Action (DME) blood-glucose meter [OneTouch Ultra2 Meter] Misc See Rx Instructions .Route Qty: 1 0RF Rx Instructions: As directed (DME) lancets [OneTouch UltraSoft Lancets] Misc See Rx Instructions .Route Qty: 200 3RF Rx Instructions: As directed (DME) OneTouch Ultra Test Strip See Rx Instructions .Route Rx Instructions: test 3 times daily Discharge Orders: Discharge Order (Routine); Ordered 07/28/24 Ordered By: Chanel Myers/Other Patient Handouts: ED Cat Bite Admission Data Admit Date/Time: 07/27/24 18:34 Attending Provider: Ladarius Nj Admit Provider: Jacques Pulido Primary Care Provider: Minesh Otto Other Providers: Jacques Pulido Other Interventions: Discharge Summary Assessment (RN) Last Done: 07/28/24 11:39 Hospital Stay Data Consultations 07/27/24 18:23 ED Decision to Admit Stat Pending Results Patient Have Any Pending Studies at Discharge: No Discharge Instructions Given to Patient (Per Discharging Provider) Mr. Jeffrey, Lemuel were recently hospitalized following a cat bite to your left hand. You were treated with IV antibiotics and had improvement of your symptoms. Please see recommendations below regarding your discharge. 1. Please take Augmentin twice daily for the next 5 days. Your first dose at home will be this evening, 07/28. Please take with food and a probiotic to avoid upset stomach. 2. Please follow up with your PCP at the appointment that has been scheduled for you as above. (07/31/2024 at 11:30 AM) 3. The remainder of your outpatient medications may be resumed as previously taking. If you develop any worsening left hand pain, swelling, redness, or drainage from wound site please report back to the ER for further care. Sincerely, Chanel Velasquez PA-C Total Time Total Time Spent Total Time Spent (In Minutes): 40 Total Time Includes: Examination of the Patient, Discharge Planning and Medication Reconciliation Coding Level of Care Code 52619 INP/OBS DISCH >30 MIN Diagnoses Cat bite of left hand with infection S61.452A; L08.9; W55.01XA Type 2 diabetes mellitus E11.9 Factor V Leiden mutation D68.51
[2024-07-28] MEDS ORDERED: WARFARIN SOD 7.5 MG TAB PO SCH (16:00)
[2024-07-30 06:49] LABS: Estimated Average Glucose 169 mg/dl; Hemoglobin A1C 7.5 % (4.5-5.6)
== END 2024-07-28 12:19 | disposition home or self-care (01) ==
LOC: ED 16:10 → 3W 16:10 → SUATTDRO 18:34 → 3W 20:13